=== PATIENT | male | born 1960 | race Two or more races ===

== ENCOUNTER → 2020-07-12 09:59 | Outpatient (BNVA) | payer MEDICAID, SELFPAY | PROVIDERS: PCP Student in an Organized Health Care Education/Training Program; Referring Provider Student in an Organized Health Care Education/Training Program; Visit Provider Nurse Practitioner | DX: Z76.89 Persons encountering health services in other specified circumstances (principal) ==

== ENCOUNTER 2021-01-24 10:01 | Outpatient (REF) | payer MEDICAID, SELFPAY ==
[2021-01-24 12:17] LABS: MANUAL DIFF FLAG NO
[2021-01-24 12:20] LABS: Basophils Percent Auto 0.5 % (0-2); Eosinophils Absolute Auto 0.1 X10*3/uL (0.0-0.4); Eosinophils Percent Auto 1.9 % (0-4); Hematocrit 46.4 % (42-52); Hemoglobin 15.3 g/dl (14.0-18.0); Imm Gran Abs Auto 0.01 X10*3/uL (0.00-0.03); Imm Gran Pct Auto 0.2 % (0.0-0.4); Lymphocytes Absolute Auto 2.9 X10*3/uL (1.2-4.9); Mean Corpuscular Hemoglobin 28.4 pg (27.0-33.0); Mean Corpuscular Volume 86.1 fL (80-98); Mean Platelet Volume 8.8 fL (9.4-12.4); Monocytes Absolute Auto 0.7 X10*3/uL (0.1-1.2); Monocytes Percent Auto 10.4 % (2-11); Neutrophils Absolute Auto 2.7 X10*3/uL (2.0-8.3); Platelet Count 207 X10*3/uL (160-400); Red Blood Count 5.39 X10*6/uL (4.60-5.80); Red Cell Distribution Width 13.2 % (11.0-16.0); White Blood Count 6.3 X10*3/uL (4.8-10.8)
[2021-01-24 12:41] LABS: Alanine Aminotransferase 25 U/L (0-40); Albumin Level 4.4 g/dL (3.5-5.0); Alkaline Phosphatase 107 U/L (39-117); Anion Gap 13 (12-20); Aspartate Amino Transferase 29 U/L (5-37); Bilirubin Total 0.4 mg/dL (0.0-1.0); Blood Urea Nitrogen 9 mg/dL (9-16); Calcium 9.4 mg/dL (8.4-10.2); Carbon Dioxide 28 mmol/L (22-29); Chloride 101 mmol/L (96-108); Estimated Glomerular Filt Rate > 60; Glucose Random 83 mg/dL (60-115); Potassium 3.6 mmol/L (3.3-5.1); Sodium 138 mmol/L (135-145); Total Protein 8.1 g/dL (6.5-8.0)
== END 2021-01-24 10:02 | disposition home or self-care (01) ==
LOC: HO.LAB 10:01
PROVIDERS: PCP Student in an Organized Health Care Education/Training Program; Referring Provider Student in an Organized Health Care Education/Training Program; Visit Provider Nurse Practitioner
DX: K59.04 Chronic idiopathic constipation (principal); K22.70 Barrett's esophagus without dysplasia; K21.9 Gastro-esophageal reflux disease without esophagitis; D12.6 Benign neoplasm of colon, unspecified; G40.909 Epilepsy, unspecified, not intractable, without status epilepticus; Z79.899 Other long term (current) drug therapy
CPT/HCPCS: 36415; 80053; 85025; 99212

== ENCOUNTER 2021-03-01 08:48 | Day surgery (SDC) | payer MEDICAID, SELFPAY ==
[2021-02-22 20:24] VITALS: BMI 38.4
--- NOTE | 2021-02-28 11:36 | P.CONAN_ITS ---
Documented by User: Carina Woo 02/28/21 11:38 HPI - Anesthesia Eval Consult details Narrative: 60yo M for Upper Endoscopy and Colonoscopy [facility] Active Problems Active Problems: All Active Problems (Updated 02/22/21 @ 20:26 by Mallory Gaytan, CRISTÓBAL) Chronic idiopathic constipation (Acute) Jose's esophagus determined by biopsy (Acute) GERD (gastroesophageal reflux disease) (Acute) Seizure disorder (Acute) Depression (Acute) Lower extremity edema (Acute) Tubular adenoma of colon (Acute) Past Medical History Medical History (Updated 02/28/21 @ 11:36 by Carina Woo) Arthritis Chronic idiopathic constipation Depression GERD (gastroesophageal reflux disease) Lower extremity edema Seizure disorder Family History Family History Mother Heart attack Surgical History Surgical History History of esophagogastroduodenoscopy (EGD) (~2016) History of intestinal surgery Hx of colonoscopy (~2016) Social History Social History Alcohol intake: current Alcohol intake frequency: does not drink Patient Tobacco Use Status: Never used Tobacco Use of substances other than those prescribed or required for medical reasons: No Are you DNR?: No Advance Directives: No Advance Directives Information Provided: No Advance Directives on File: No Meds Allergies Allergy/AdvReac Type Severity Reaction Status Date / Time No Known Allergies Allergy Verified 01/24/21 10:10 [No Known Allergies*] Home Medications Medication Instructions Recorded Confirmed Last Taken Type phenytoin sodium extended 1 cap PO TID 03/01/21 03/01/21 Unknown History [Dilantin Extended] Exam Exam Date and Time: February 28, 2021 1136 Height,Weight and Vital Signs: Height 5 ft 2 in Weight 95.254 kg Assessment and Plan Assessment Anesthesia Assessment: Chart Reviewed Documented by User: Tova Soni 03/01/21 10:10 [facility] Past Medical History Medical History (Updated 02/28/21 @ 11:36 by Carina Woo) Arthritis Chronic idiopathic constipation Depression GERD (gastroesophageal reflux disease) Lower extremity edema Seizure disorder Family History Family History Mother Heart attack Surgical History Surgical History History of esophagogastroduodenoscopy (EGD) (~2016) History of intestinal surgery Hx of colonoscopy (~2016) Social History Social History Alcohol intake: current Alcohol intake frequency: does not drink Patient Tobacco Use Status: Never used Tobacco Use of substances other than those prescribed or required for medical reasons: No Are you DNR?: No Advance Directives: No Advance Directives Information Provided: No Advance Directives on File: No Meds Allergies Allergy/AdvReac Type Severity Reaction Status Date / Time No Known Allergies Allergy Verified 01/24/21 10:10 [No Known Allergies*] Home Medications Medication Instructions Recorded Confirmed Last Taken Type phenytoin sodium extended 1 cap PO TID 03/01/21 03/01/21 Unknown History [Dilantin Extended] Exam Airway Mallampati Class: III TM Dist: >3cm Neck ROM: Full Heart: rrr Lungs: cta Assessment and Plan Assessment Anesthesia Assessment: Anesthesia Plan Discussed and Chart Reviewed Final Anesthetic Review NPO: Yes ASA Class: III Final Preanesthetic Review: No Changes in Pt Med Stat and Consent Obtained/Reviewed Patient Risk: Intermediate Procedure Risk: Intermediate Anesthetic Plan Anesthetic Plan: MAC: Disposition: Standard PACU
--- NOTE | 2021-03-01 10:04 | MHC.SHP ---
Pre-Procedural Eval Section A Date of Service: 03/01/21 Section B Chief Complaint: chronic constipation,benign neoplasm of colon Relevant Family History (Specify if Yes): No Relevant Social History: None Present Medications: see Short Stay Collaborative assessment Medical History: Significant History (Arthritis Chronic idiopathic constipation Depression GERD (gastroesophageal reflux disease) Lower extremity edema Seizure disorder) History of Previous Operations: Relevant previous surgery/procedure and date(s) (History of esophagogastroduodenoscopy (EGD) (~2016) History of intestinal surgery Hx of colonoscopy (~2016)) Allergies: Allergies Allergy/AdvReac Type Severity Reaction Status Date / Time No Known Allergies Allergy Verified 01/24/21 10:10 [No Known Allergies*] Review of Systems Sugical H&P ROS: Negative: Constitution, Cardiovascular, Respiratory, Neurological, Psychiatric, Hem-Onc, Allergic/Immunologic, Gastrointestinal, Genitourinary, Musculoskeletal, Integumentary, Endocrine and Eyes/Ears/Nose/Throat Exam Surgical H&P Exam: Normal: HEENT, Normal: Heart, Normal: Lungs, Normal: Extremities, Normal: Abdomen, Normal: Skin and Normal: Neurological Plan Diagnosis/Plan: Unchanged I have reviewed the history and physical and performed a pertinent physical examination on my patient. No changes have occurred unless specified.
[2021-03-01 10:06] VITALS: BP 133/79; PULSE 74; RESP 18; TEMP 36.2; O2SAT 95; BMI 40.6
[2021-03-01] MEDS: Lactated Ringers 1,000 ML 100 ML IVCONT (10:26)
--- NOTE | 2021-03-01 10:37 | P.OP_ITS ---
Operative Note Operative Note Date of Service: 03/01/21 Narrative: Operative Information Procedure Description: EGD, Colonoscopy FLEXIBLE TRANSORAL UPPER GASTROINTESTINAL ENDOSCOPY AND COLONOSCOPY PROCEDURE NOTE UPPER ENDOSCOPY Consent: Indications for the procedure and potential complications of bleeding, perforation, reaction to medications and missed diagnosis were discussed with the patient and informed consent was obtained. Instrument: Olympus GIF H 190 J mid size upper endoscope Monitoring: Vital signs and clinical assessment, continuous EKG monitoring, Pulse oximetry, Carbon Dioxide monitoring and blood pressure monitoring were done throughout the procedure. Procedure: The patient was placed in the left lateral decubitis position and pre-procedure medications were administered and a bite block was placed. The endoscope was inserted into the mouth and advanced under direct vision to the third part of duodenum. A careful inspection was made as the upper endoscope was withdrawn including a retroflexed examination of the proximal stomach; Findings and interventions are described below. Findings: Larynx:normal Esophagus: GE junction at 40 cm, diaphragm hiatus at 40 cm, mild esophagitis, possible one island of barretts esophagus, bx taken Stomach: Mild erythema. Biopsies were obtained. Grade 2 flap valve on retroflexed examination of the cardia. Duodenum: Normal bulb and descending duodenum, Intervention: Biopsies as noted above COLONOSCOPY Instrument: Olympus variable stiffness adult scope 190L Colonoscopy Monitoring: Vital signs and clinical assessment, continuous EKG monitoring, Pulse oximetry, Carbon Dioxide monitoring and blood pressure monitoring were done throughout the procedure. Colon withdrawal time was 26 minutes. Procedure: The patient was placed in the left lateral decubitis position and pre-procedure medications were administered. After a digital rectal examination of the ano-rectum, the video colonoscope was inserted into the rectum and advanced through the colon to the cecum/TI. The colonoscope was slowly withdrawn in a retrograde panoramic fashion and the colon mucosa was carefully examined including a retroflexed view of the rectum. Findings and interventions are described below. Procedure Difficulty:moderate, looping, pressure applied Findings: Terminal Ileum-not intubated Cecum:normal Ascending Colon: x 1 sessile polyp 6-8 mm removed with cold snare Transverse Colon -normal Descending Colon: x 1 sessile polyp 6-8 mm removed with cold snare Sigmoid Colon: x 2 sessile polyps 8-9 mm removed with cold snare Rectum: Retroflexion with small internal hemorrhoids, grade I Anorectum - normal Colon preparation: [place] Bowel Preparation Scale Right colon; 2 Transverse colon: 2 Left colon; 1 (0 = Unprepared colon segment with mucosa not seen due to solid stool that cannot be cleared. 1 = Portion of mucosa of the colon segment seen, but other areas of the colon segment not well seen due to staining, residual stool and/or opaque liquid. 2 = Minor amount of residual staining, small fragments of stool and/or opaque liquid, but mucosa of colon segment seen well. 3 = Entire mucosa of colon segment seen well with no residual staining, small fragments of stool or opaque liquid) Impression and Post Procedure Diagnosis: Endoscopy Findings: possible barretts esophagitis gastritis Colonoscopy Findings: polyps internal hemorrhoids Plan: Await Pathology results Repeat Colonoscopy in 3 years due to polyps and prep on legt side or earlier if clinically indicated High fiber diet leaflet avoid straining at stool, epsom salts and sitz bath, anusol supps or cream cont with PPI Above findings were reviewed with the patient and relevant handouts were provided if indicated.
--- NOTE | 2021-03-01 10:37 | PM.OP ---
Brief Operative Note Date of Service: 03/01/21 Pre-op diagnosis: hx of barretts, and tubular adenomas Post-op diagnosis: same Procedure: see op note Surgeon: Fabián Martin MD Anesthesia: MAC Was an Regulatory Process Manager used for this Procedure?: No Estimated blood loss (mL): 0 Condition: stable Disposition: PACU
[2021-03-01 11:54] VITALS: BP 106/60; PULSE 71; RESP 16; TEMP 36.7; O2SAT 97
[2021-03-01 12:09] VITALS: BP 105/69; PULSE 66; RESP 18; O2SAT 96
[2021-03-01 12:35] VITALS: BP 126/79; PULSE 67; RESP 20; O2SAT 99
[2021-03-01 12:47] VITALS: BP 136/64; PULSE 69; RESP 18; O2SAT 96
[2021-03-01 13:01] VITALS: BP 129/64; PULSE 68; RESP 16; O2SAT 96
== END 2021-03-01 14:08 | disposition home or self-care (01) ==
PROVIDERS: PCP Student in an Organized Health Care Education/Training Program; Visit Provider Internal Medicine Gastroenterology
PROC: (CPT 45385; principal; 2021-03-01 10:00)
DX: K59.04 Chronic idiopathic constipation (principal); Z86.010 Personal history of colon polyps; D12.2 Benign neoplasm of ascending colon; D12.4 Benign neoplasm of descending colon; K63.5 Polyp of colon; K64.0 First degree hemorrhoids; K29.50 Unspecified chronic gastritis without bleeding; K20.90 Esophagitis, unspecified without bleeding; K44.9 Diaphragmatic hernia without obstruction or gangrene; G40.909 Epilepsy, unspecified, not intractable, without status epilepticus; Z79.899 Other long term (current) drug therapy
CPT/HCPCS: 45385; 43239; 88305; 88342

== ENCOUNTER → 2021-03-23 10:10 | Outpatient (BNVA) | payer MEDICAID, SELFPAY | PROVIDERS: PCP Student in an Organized Health Care Education/Training Program; Visit Provider Nurse Practitioner | DX: K21.9 Gastro-esophageal reflux disease without esophagitis (principal); K59.04 Chronic idiopathic constipation; K22.70 Barrett's esophagus without dysplasia; D12.6 Benign neoplasm of colon, unspecified | CPT/HCPCS: 99212 ==

== ENCOUNTER → 2021-04-07 14:01 | Outpatient (BNVA) | payer MEDICAID, SELFPAY | PROVIDERS: PCP Student in an Organized Health Care Education/Training Program; Visit Provider Nurse Practitioner ==

== ENCOUNTER → 2021-05-26 15:35 | Outpatient (BNVA) | payer MEDICAID, SELFPAY | PROVIDERS: PCP Student in an Organized Health Care Education/Training Program; Visit Provider Nurse Practitioner ==

== ENCOUNTER 2021-10-02 10:58 | Outpatient (REF) | payer MEDICAID, SELFPAY ==
--- NOTE | ~2021-10-02 | XR_ITS ---
EXAMINATION: XR KNEE, RIGHT CLINICAL INFORMATION: Pain COMPARISON: None TECHNIQUE: Two views of the right knee. FINDINGS: Bone alignment is normal. No fracture or dislocation is seen. The joint spaces are normal. There is a small osteophyte at the quadriceps tendon insertion to the patella. There is no joint effusion. There is atherosclerotic disease. XR/XR knee RT 2V IMPRESSION: Small osteophyte at the quadriceps tendon insertion to the patella otherwise unremarkable exam.
== END 2021-10-02 10:59 | disposition home or self-care (01) ==
LOC: HO.XRAY 10:58
PROVIDERS: PCP Student in an Organized Health Care Education/Training Program; Visit Provider Student in an Organized Health Care Education/Training Program
DX: M25.561 Pain in right knee (principal)
CPT/HCPCS: 73560

== ENCOUNTER → 2021-12-26 11:13 | Outpatient (BNVA) | payer MEDICAID, SELFPAY | PROVIDERS: PCP Student in an Organized Health Care Education/Training Program; Visit Provider Nurse Practitioner | DX: K22.70 Barrett's esophagus without dysplasia (principal); K59.04 Chronic idiopathic constipation; K21.9 Gastro-esophageal reflux disease without esophagitis; R14.0 Abdominal distension (gaseous) | CPT/HCPCS: 99212 ==

== ENCOUNTER → 2022-06-29 10:56 | Outpatient (BNVA) | payer MEDICAID, SELFPAY | PROVIDERS: PCP Student in an Organized Health Care Education/Training Program; Visit Provider Nurse Practitioner | DX: K59.04 Chronic idiopathic constipation (principal); K21.9 Gastro-esophageal reflux disease without esophagitis; K22.70 Barrett's esophagus without dysplasia; R14.0 Abdominal distension (gaseous) | CPT/HCPCS: 99212 ==

== ENCOUNTER → 2022-09-25 10:41 | Outpatient (BNVA) | payer MEDICAID, SELFPAY | PROVIDERS: PCP Student in an Organized Health Care Education/Training Program; Visit Provider Psychiatry & Neurology Neurology | DX: G40.909 Epilepsy, unspecified, not intractable, without status epilepticus (principal); G47.10 Hypersomnia, unspecified; R26.9 Unspecified abnormalities of gait and mobility; R06.83 Snoring | CPT/HCPCS: 99202 ==

== ENCOUNTER → 2022-10-12 10:37 | Outpatient (REF) | payer MEDICAID, SELFPAY | LOC: HO.SL 10:37 | PROVIDERS: PCP Student in an Organized Health Care Education/Training Program; Visit Provider Psychiatry & Neurology Neurology | DX: G47.33 Obstructive sleep apnea (adult) (pediatric) (principal) | CPT/HCPCS: 95806 ==

== ENCOUNTER 2022-11-14 12:47 | Outpatient (REF) | payer MEDICAID, SELFPAY ==
--- NOTE | ~2022-11-14 | US_ITS ---
. US/US venous duplex LE LT IMPRESSION: No DVT demonstrated in the right lower extremity.
== END 2022-11-14 12:48 | disposition home or self-care (01) ==
LOC: HO.US 12:47
PROVIDERS: PCP Student in an Organized Health Care Education/Training Program; Visit Provider General Practice
DX: M79.662 Pain in left lower leg (principal)
CPT/HCPCS: 93971

== ENCOUNTER 2022-11-16 14:51 | Emergency (ER) | payer MEDICAID, SELFPAY ==
--- NOTE | ~2022-11-16 | XR_ITS ---
EXAMINATION: XR KNEE, LEFT CLINICAL INFORMATION: Pain. COMPARISON: No similar priors. TECHNIQUE: Four views of the left knee. FINDINGS: No acute fractures or subluxation. Mild joint space narrowing and subcortical sclerosis of the medial and patellofemoral compartments. No chondrocalcinosis or erosions. Small joint effusion. XR/XR knee LT 3V IMPRESSION: 1. No acute fractures or subluxation. 2. Mild degenerative osteoarthritis of the medial and patellofemoral compartments. 3. Small joint effusion.
--- NOTE | ~2022-11-16 | XR_ITS ---
EXAMINATION: XR HIP, LEFT CLINICAL INFORMATION: Pain. COMPARISON: None available. TECHNIQUE: Two views of the left hip. FINDINGS: No acute fractures or subluxation. SI joints are symmetric. Pubic symphysis is maintained. Mild to moderate joint space narrowing and subcortical sclerosis in both hips, suggesting degenerative osteoarthritis. No significant soft tissue abnormality. Scattered atherosclerotic disease noted. XR/XR hip LT min 2V IMPRESSION: 1. No acute fractures or subluxation. 2. Mild to moderate degenerative osteoarthritis of both hips.
[2022-11-16 15:00] VITALS: BP 148/88; PULSE 77; O2SAT 98
[2022-11-16 15:01] VITALS: BP 144/98; PULSE 98; RESP 18; TEMP 36.7; O2SAT 98; BMI 27.3
[2022-11-16] MEDS: Morphine Sulfate 4 MG/ML CARTRIDGE IM (17:06)
--- NOTE | 2022-11-16 17:12 | ED.GENADULT ---
HPI - General Adult General Chief complaint: Extremity Injury, Lower Stated complaint: L leg pain x 1 week per EMS Time Seen by Provider: 11/16/22 16:38 Source: patient, family (Patient's brother acting as lot associate), RN notes reviewed and old records reviewed Mode of arrival: EMS Limitations: language barrier (Declined interpreting services) History of Present Illness HPI narrative: 62-year-old male past medical history significant for seizure disorder, MATEO on CPAP, neuropathy, GERD presents for evaluation of left leg pain. Patient reports left pain that starts in his left hip and radiates down all way to his foot he The pain is 10/10, stabbing and worse with any kind of movement. The patient reports his pain has been present for 1 week He has not taken any medications to help alleviate his symptoms. Denies any injuries, falls or twisting motions. He spoke to his primary doctor who has not yet seen the patient but did order an ultrasound of the left lower extremity 2 days ago which did not show any evidence of DVT Related Data Home Medications Medication Instructions Recorded Confirmed phenytoin sodium extended 100 mg 1 cap PO TID 03/01/21 09/25/22 capsule (Dilantin Extended) aripiprazole 10 mg tablet 10 mg PO DAILY 12/26/21 09/25/22 cyanocobalamin (vitamin B-12) 1,000 mcg PO QAM 12/26/21 09/25/22 1,000 mcg tablet (Vitamin B-12) duloxetine 30 mg capsule,delayed 60 mg PO QAM 12/26/21 09/25/22 release ergocalciferol (vitamin D2) 1,250 1,250 mcg PO QWEEK 12/26/21 09/25/22 mcg (50,000 unit) capsule (Vitamin D2) esomeprazole magnesium 20 mg 20 mg PO QAM 12/26/21 09/25/22 capsule,delayed release folic acid 400 mcg tablet 0.4 mg PO QPM 12/26/21 09/25/22 furosemide 20 mg tablet 20 mg PO BID 12/26/21 09/25/22 simvastatin 10 mg tablet 10 mg PO BEDTIME 12/26/21 09/25/22 trazodone 100 mg tablet 200 mg PO BEDTIME PRN 12/26/21 09/25/22 Previous Rx's Medication Instructions Recorded pantoprazole 40 mg tablet,delayed 40 mg PO BID #60 tabs 02/22/21 release (Protonix) simethicone 180 mg capsule 180 mg PO TID #90 caps 06/22/22 phenobarbital 64.8 mg tablet 64.8 mg PO TID 90 days #270 tabs 09/25/22 phenytoin sodium extended 100 mg 100 mg PO TID 90 days #270 caps 09/25/22 capsule (Dilantin Extended) bisacodyl 5 mg tablet,delayed 10 mg PO BEDTIME PRN for 10/12/22 release constipation #60 tabs docusate sodium 100 mg capsule 100 mg PO .QD #60 caps 10/12/22 (Colace) linaclotide 72 mcg capsule 72 mcg PO QAM #30 caps 10/12/22 (Linzess) oxycodone 5 mg tablet 5 mg PO Q6H PRN severe pain (scale 11/16/22 score 7-10) #14 tabs Allergies Allergy/AdvReac Type Severity Reaction Status Date / Time No Known Allergies Allergy Verified 09/25/22 10:51 [No Known Allergies*] Review of Systems Constitutional: Constitutional: Reports as per HPI, Denies chills, Denies fatigue, Denies fever(s) and Denies headache(s) ENT: Denies headache(s) Cardiovascular: Cardiovascular: Denies chest pain and Denies dyspnea Respiratory: Respiratory: Denies cough and Denies dyspnea Gastrointestinal: Gastrointestinal: Denies abdominal pain, Denies constipation and Denies vomiting Genitourinary: Genitourinary: Denies difficulty urinating and Denies dysuria Neurologic: Denies headache(s) and Denies focal weakness Endocrine: Endocrine: Denies fatigue [facility] Past Medical History Medical History (Updated 11/16/22 @ 19:24 by Nicola Bradshaw) Arthritis Chronic idiopathic constipation Depression Gait disorder GERD (gastroesophageal reflux disease) Hypersomnia Lower extremity edema MATEO on CPAP Seizure disorder Snoring Surgical History History of esophagogastroduodenoscopy (EGD) (~2017) History of intestinal surgery Hx of colonoscopy (~2017) Family History Family History Mother Heart attack Social History Social History Alcohol intake: never Patient Tobacco Use Status: Never used Tobacco Advance Directives: No Advance Directives Information Provided: Yes Physical Exam ED Vital Signs: Vital Signs - 24 hr 11/16/22 15:01 11/16/22 18:54 Temperature 98.1 F 98.0 F Pulse Rate 98 87 Respiratory Rate 18 14 Blood Pressure 144/98 H 134/79 Pulse Oximetry 98 97 Oxygen Delivery Method Room Air Room Air BMI result Body Mass Index 27.3 Const General: healthy appearing, comfortable, no acute distress, alert and awake Nutritional Appearance: well nourished Orientation/consciousness: patient oriented x3 HENMT Head: Yes normocephalic and Yes atraumatic Throat: Yes posterior oropharynx normal Eyes Eyelids: Yes eyelids normal Conjunctivae: conjunctivae normal Sclerae: sclerae normal Corneas: corneas normal Pupils: Equal, round and reactive pupils present EOM: EOMs intact bilaterally Neck Neck: Yes full ROM Resp Effort & Inspection: normal respiratory effort, able to speak in complete sentences, no audible wheezes and not labored Auscultation: clear to auscultation bilaterally Cardio Rate: regular rate Rhythm: regular rhythm GI Inspection: No distended Palpation (GI): Soft to palpation, not firm, nontender, no guarding and not rigid Auscultation: normoactive bowel sounds Skin General skin exam: no rashes or lesions noted and elasticity normal Neuro General: patient oriented x3 Cranial nerves: Yes CN's II-XII intact bilaterally, Yes Equal, round and reactive pupils present and Yes Bilaterally intact EOM present Cognition (Neuro): normal cognition Extrem Other: Patient has tenderness to palpation to most to the left lower extremity including the hip, knee and calf. There are no visual or palpable deformities. No edema, skin changes. No palpable cords. Patient has a straight leg raise is positive on the left. Course Reevaluation(s) Reevaluation #1: Patient continues to have pain but is requesting discharge. Discussed x-ray findings with the patient he has arthritis of both hips and the left knee. We will discharge the patient short course of oxycodone Time: 19:23 Medications Administered Discontinued Medications Generic Name Dose Route Start Last Admin Trade Name Freq PRN Reason Stop Dose Admin Morphine Sulfate 4 mg 11/16/22 16:45 11/16/22 17:06 Morphine Sulfate 4 Mg/Ml Cartridge IM 11/16/22 16:46 4 mg ONCE ONE Administration Protocol Medical Decision Making Medical Decision Making MDM Narrative: 62-year-old male past medical history significant for neuropathy and history of left or extremity pain presents for evaluation of left leg pain. He had an ultrasound 2 days ago of the left lower extremity that ruled out DVT. I was able to see the report within our system. I will get an x-ray of the left hip and left knee to evaluate for osteoarthritis/avascular necrosis. Will treat the patient's pain with morphine in the meantime. Differential Diagnosis Left hip bursitis Osteoarthritis Avascular necrosis DVT less likely Radiculopathy Sciatica Independent Interpretation I performed an independent interpretation of an: Plain X-Ray (Arthritis the left hip and left knee) Discharge Plan Discharge Clinical Impression: Osteoarthritis of left hip Patient Disposition: Home, Self-Care Instructions: Osteoarthritis (ED) Additional Instructions: Your x-ray showed arthritis of both hips as well as her left knee. You may continue your home medications as prescribed. Take oxycodone for severe or breakthrough pain. This may make you sleepy, did not drink alcohol or drive after taking it Follow-up with your primary doctor Prescriptions: New oxycodone 5 mg tablet 5 mg PO Q6H PRN (Reason: severe pain (scale score 7-10)) Qty: 14 0RF Rx Instructions: Partial Fill upon patient request. No Action pantoprazole [Protonix] 40 mg tablet,delayed release (DR/EC) 40 mg PO BID Qty: 60 6RF simethicone 180 mg capsule 180 mg PO TID Qty: 90 6RF Linzess 72 mcg capsule 72 mcg PO QAM Qty: 30 4RF bisacodyl 5 mg tablet,delayed release (DR/EC) 10 mg PO BEDTIME PRN (Reason: for constipation) Qty: 60 2RF docusate sodium [Colace] 100 mg capsule 100 mg PO .QD Qty: 60 6RF phenytoin sodium extended [Dilantin Extended] 100 mg capsule 1 cap PO TID aripiprazole 10 mg tablet 10 mg PO DAILY duloxetine 30 mg capsule,delayed release(DR/EC) 60 mg PO QAM esomeprazole magnesium 20 mg capsule,delayed release(DR/EC) 20 mg PO QAM ergocalciferol (vitamin D2) [Vitamin D2] 1,250 mcg (50,000 unit) capsule 1,250 mcg PO QWEEK furosemide 20 mg tablet 20 mg PO BID trazodone 100 mg tablet 200 mg PO BEDTIME PRN folic acid 400 mcg tablet 0.4 mg PO QPM cyanocobalamin (vitamin B-12) [Vitamin B-12] 1,000 mcg tablet 1,000 mcg PO QAM simvastatin 10 mg tablet 10 mg PO BEDTIME phenytoin sodium extended [Dilantin Extended] 100 mg capsule 100 mg PO TID 90 Days Qty: 270 6RF phenobarbital 64.8 mg tablet 64.8 mg PO TID 90 Days Qty: 270 5RF
[2022-11-16 18:54] VITALS: BP 134/79; PULSE 87; RESP 14; TEMP 36.7; O2SAT 97
== END 2022-11-16 19:48 | disposition home or self-care (01) ==
PROVIDERS: Emergency Provider Emergency Medicine; PCP Student in an Organized Health Care Education/Training Program
DX: M16.12 Unilateral primary osteoarthritis, left hip (principal); M25.552 Pain in left hip; M25.562 Pain in left knee
CPT/HCPCS: 73502; 73562; 96372; 99284; J2270

== ENCOUNTER → 2022-12-24 08:51 | Outpatient (BNVA) | payer MEDICAID, SELFPAY | PROVIDERS: PCP Student in an Organized Health Care Education/Training Program; Visit Provider Nurse Practitioner Family | DX: G40.909 Epilepsy, unspecified, not intractable, without status epilepticus (principal); R26.9 Unspecified abnormalities of gait and mobility; G47.33 Obstructive sleep apnea (adult) (pediatric); Z99.89 Dependence on other enabling machines and devices | CPT/HCPCS: 99212 ==

== ENCOUNTER → 2022-12-28 10:44 | Outpatient (BNVA) | payer MEDICAID, SELFPAY | PROVIDERS: PCP Student in an Organized Health Care Education/Training Program; Visit Provider Nurse Practitioner | DX: K21.9 Gastro-esophageal reflux disease without esophagitis (principal); R14.0 Abdominal distension (gaseous); K59.04 Chronic idiopathic constipation; K22.70 Barrett's esophagus without dysplasia | CPT/HCPCS: 99212 ==

== ENCOUNTER 2023-02-06 11:00 | Outpatient (RCR) | payer MEDICAID, SELFPAY ==
--- NOTE | 2023-01-09 12:55 | MHC.PT.EP ---
[facility] [place] [facility] [place] [facility] [place] [facility] [address] Ksenia Rose [address] [phone] F: [phone] F: [phone] F: [phone] F: [phone] Physical Therapy Plan of Care Date of Evaluation: Date of Surgery: Diagnosis: gait disorder Assessment: Patient is a 62 year old R handed male who presents with s/s consistent with gait disorder. He is disabled with chronic progressing pain and functional limitations. Patient past medical history includes seizures, MATEO, gait disorder, and arthritis. Current impairments include pain, posture, balance, safety, independence, ROM, strength, activity tolerance and functional mobility. Functional limitations include decreased ability to perform all functional activities, as LANDSCAPE SPECIALIST reportedly assists with all mobility during the day. Patient is motivated with good rehab potential. Skilled PT will address impairments and functional limitations in order to achieve goals. Frequency and Duration: The patient will be seen 2x/week for 5 weeks Short Term Goals: I with HEP - 2 weeks Able to stand unsupported 1 min - 3 weeks Able to walk with walker for 5 minutes without rest - 3 weeks Shelter Goals: hip strength 4/5 grossly b/l - 5 weeks LEFS 20/80 - 5 weeks Lumbar rotation 50% and pain free - 5 weeks Able to stand unsupported 3 minutes without rest - 5 weeks Treatment Plan: Modalities to reduce pain, spasms and effusion. Manual therapy to restore motion and function. Therapeutic exercise to improve strength and flexibility. Neuromuscular re-education for posture and balance. Therapeutic activities to return to functional activities of daily living. Electronically signed by: Moreno Vazquez, PT Please sign and return to therapist. Thank you for your referral.
--- NOTE | 2023-02-20 15:01 | MHC.PT.DC ---
[facility] [place] Office [place] Office [place] Office [address] Ksenia Rose [address] [phone] F: [phone] F: [phone] F: [phone] F: [phone] Physical Therapy Discharge Report Diagnosis: gait disorder Date of Surgery: Date of Evaluation: 01/09/23 Date of Discharge: 02/20/23 Treatments to Date: 5 Cancellations to Date: 2 No Shows to Date: 2 Discharge Status: Visit Non-compliance Discharge Summary: Pt has failed to comply with [facility] attendance policy and no showed his last 2 visits. Pt to be d/c at this time. Electronically signed by: Carol Balbuena, PT, DPT, ATC Please sign and return to therapist. Thank you for your referral.
== END 2023-02-20 15:01 | disposition home or self-care (01) ==
LOC: HO.PTCHIC 11:00
PROVIDERS: PCP Student in an Organized Health Care Education/Training Program; Visit Provider Psychiatry & Neurology Neurology
DX: R26.9 Unspecified abnormalities of gait and mobility (principal)
CPT/HCPCS: 97110; 97163

== ENCOUNTER 2023-02-18 09:01 | Outpatient (AMB) | payer MEDICAID, SELFPAY ==
--- NOTE | 2023-02-18 09:11 | MHC.OFFVIS ---
Intake Vital Signs 02/18/23 10:22 Height 5 ft 8 in Weight 224 lb BMI 34.1 BP 132/78 Blood Pressure Location Lt brachial Position Sitting Respiration 16 Pulse 68 Pulse Source Pulse Oximeter Pulse Oximetry (%) 96 Oxygen Delivery Method Room Air Intake Visit Reasons: Bilateral hip pain Intake Note: patient comes in for initial visit was referred by PCP. Allergies No Known Allergies [No Known Allergies*] Allergy (Verified 02/18/23 10:24) HPI Bilateral hip pain HPI Details Mr. Rae is very pleasant 62 years old gentleman HPI Comments History of Present Illness Details Mr. Rae is very pleasant [place] Citizen-speaking 62 years old gentleman who presents in my office with complains on pain in the lumbar spine with radiation into the bilateral lower extremities, as well as numbness in bilateral feet and lower legs more on the left and less on the right. She reports that this pain started 3-4 years ago. He reports today pain 8/10. Because of his pain he cannot sleep normally cannot do activities of daily living can not take care of his himself but he cannot function normally. He is disabled on permanent disability and he is presenting he is self today with his [place] Citizen and [place]-speaking caregiver who is fluent in both languages. She helped us to communicate. He reports that cold applications make his cane pain better. He reports that he is unable to walk normally because of the gait instability. In terms of tissue damage he reports his pain is stabbing, lancinating, tiring, exhausting, tight, squeezing, tearing. He was under impression that he received x-ray of his lumbar spine in [facility] however the only x-ray related to his emergency visit was hip x-ray. In [facility] he did not receive any lumbar spine x-rays. He reports that he is currently with physical therapy and he performs home exercise programs 3 times a day he denies any help from physical therapy. He is taking Advil for his pain and he denies any pain improvement on Advil. His past medical history significant for hypertension and epilepsy there is a note in his chart about some ?lytic lesion ?. It means that he had a cancer in the past? I would need to find out from this patient at the next visit. He denies any surgery. He denies smoking cigarettes drinking alcohol or using recreational drugs. [facility] Medical History Arthritis Chronic idiopathic constipation Depression Gait disorder GERD (gastroesophageal reflux disease) Hypersomnia Lower extremity edema MATEO on CPAP Seizure disorder Snoring Surgical History History of esophagogastroduodenoscopy (EGD) (~2017) History of intestinal surgery Hx of colonoscopy (~2017) Family History Mother Heart attack Social History Alcohol intake: never Patient Tobacco Use Status: Never used Tobacco Review of Systems Const All systems reviewed & are unremarkable except as noted in HPI and below Reports no additional complaints Card Reports no additional complaints Resp Reports no additional complaints GI Reports abdominal pain, Reports constipation and Reports heartburn Reports no additional complaints Musc Reports as per HPI Neuro Reports as per HPI Psych Reports as per HPI Physical Exam Vital Signs: Last Vital Signs Pulse 68 02/18/23 10:22 Resp 16 02/18/23 10:22 BP 132/78 02/18/23 10:22 Pulse Ox 96 02/18/23 10:22 Oxygen Delivery Method Room Air 02/18/23 10:22 BMI result Body Mass Index 34.1 Const General: well developed and tired appearing; No acute distress Nutritional Appearance: overweight Orientation/consciousness: patient oriented x3 Chest Chest palpation & inspection: normal inspection of the chest Resp Effort & Inspection: normal respiratory effort, able to speak in complete sentences, normal respiratory pattern, no audible wheezes, no cough, respiratory effort not decreased, no grunting, not labored and no nasal flaring Cardio Jugular venous distension: no JVD GI Inspection: Yes normal to inspection Back/Spine/Pelvis Other: Unable to stand without support on bilateral feet. Use walker for ambulation. 2 point discrimination is negative on the left foot. Reports numbness is spreading to the mid of the lower leg. Bilateral Achillis and bilateral patellar reflexes are absent. Unable to dorsiflex at all his left foot, very weak dorsiflexion of the right foot. Unable to dorsiflex bilaterally great toe. SLR is positive for pain increase bilaterally. Forceful dorsiflexion of the bilateral feet results in significant pain increase in the back with radiation into bilateral lower extremities. Loading test is positive bilaterally. Valsalva maneuver is equivocal. Could be positive hard to explain to the patient. Neuro General: patient oriented x3 Psych Appearance: grossly normal Mental Status: mental status grossly normal Speech and movement: Normal speech and movement present Affect: normal affect Attitude: cooperative Thought process: Normal thought process present Thought content: Normal thought content present Insight: Good insight present (Psych) Assessment & Plan Assessment & Plan (1) Spondylosis of lumbar joint: Code(s): M47.816 - Spondylosis without myelopathy or radiculopathy, lumbar region (2) Disc degeneration, lumbar: Code(s): M51.36 - Other intervertebral disc degeneration, lumbar region (3) Radiculopathy, lumbar region: Code(s): M54.16 - Radiculopathy, lumbar region (4) Chronic pain syndrome: Code(s): G89.4 - Chronic pain syndrome Plan Of this patient exhibits signs of significant nerve root compressions on the bilateral lower extremities right more than left. Most likely radiculopathy on the right but cannot exclude left. Weakness of bilateral lower extremities as well as numbness of bilateral lower extremities objectively presenting as well as absence of the bilateral reflexes L4 and S1 demonstrate radiculopathy. I will send him for the MRI as soon as possible. After MRI is ready I would need to schedule him for follow-up appointment and discuss options for the treatment of his condition. He might require surgery. In his charge there is mentioning of ?lythic lesion ?. Next time he is here I would need to us him if he ever had any history of cancer. Orders: Orders MR lumbar spine wo con Today G89.4 - Chronic pain syndrome, M47.816 - Spondylosis without myelopathy or radiculopathy, lumbar region, M51.36 - Other intervertebral disc degeneration, lumbar region, M54.16 - Radiculopathy, lumbar region Coding Level of Care Code New Pt Level 4 (70120) Diagnoses Spondylosis of lumbar joint M47.816 Disc degeneration, lumbar M51.36 Radiculopathy, lumbar region M54.16 Chronic pain syndrome G89.4
[2023-02-18 10:22] VITALS: BP 132/78; PULSE 68; RESP 16; O2SAT 96; BMI 34.1
== END 2023-02-18 10:14 | disposition home or self-care (01) ==
PROVIDERS: PCP Student in an Organized Health Care Education/Training Program; Visit Provider Anesthesiology
DX: G89.4 Chronic pain syndrome (principal); M47.816 Spondylosis without myelopathy or radiculopathy, lumbar region; M51.36 Other intervertebral disc degeneration, lumbar region; M54.16 Radiculopathy, lumbar region
CPT/HCPCS: 99204

== ENCOUNTER → 2023-02-18 09:01 | Outpatient (BNVA) | payer MEDICAID, SELFPAY | PROVIDERS: PCP Student in an Organized Health Care Education/Training Program; Visit Provider Anesthesiology | DX: M47.816 Spondylosis without myelopathy or radiculopathy, lumbar region (principal); M51.36 Other intervertebral disc degeneration, lumbar region; M54.16 Radiculopathy, lumbar region; G89.4 Chronic pain syndrome | CPT/HCPCS: 99202 ==

== ENCOUNTER 2023-04-22 10:43 | Outpatient (REF) | payer MEDICAID, SELFPAY ==
[2023-04-22 15:07] LABS: Alanine Aminotransferase 31 U/L (0-40); Albumin Level 4.3 g/dL (3.5-5.0); Alkaline Phosphatase 108 U/L (39-117); Anion Gap 12 (12-20); Aspartate Amino Transferase 24 U/L (5-37); Bilirubin Direct 0.1 mg/dL (0.0-0.5); Bilirubin Total 0.3 mg/dL (0.0-1.0); Blood Urea Nitrogen 8 mg/dL (9-16); Calcium 9.2 mg/dL (8.4-10.2); Carbon Dioxide 28 mmol/L (22-29); Chloride 105 mmol/L (96-108); Cholesterol 163 mg/dL (<200); Estimated Glomerular Filt Rate > 60; Glucose Fasting 86 mg/dL (60-99); HDL Cholesterol 53 mg/dL (>40); LDL Cholesterol Calculated 82 mg/dL (<100); Potassium 3.7 mmol/L (3.3-5.1); Sodium 141 mmol/L (135-145); Total Protein 7.7 g/dL (6.5-8.0); Triglycerides 140 mg/dL (<150)
== END 2023-04-22 10:44 | disposition home or self-care (01) ==
LOC: HO.CHCLDS 10:43
PROVIDERS: Visit Provider Student in an Organized Health Care Education/Training Program
DX: G40.909 Epilepsy, unspecified, not intractable, without status epilepticus (principal)
CPT/HCPCS: 36415; 80048; 80061; 80076

== ENCOUNTER 2023-04-25 09:58 | Outpatient (REF) | payer MEDICAID, SELFPAY ==
--- NOTE | ~2023-04-25 | MR_ITS ---
EXAMINATION: MR LUMBAR SPINE WITHOUT CONTRAST CLINICAL INFORMATION: Spondylosis without myelopathy or radiculopathy. COMPARISON: CT scan of the abdomen and pelvis 10/07/2017. TECHNIQUE: MRI of the lumbar spine was obtained using routine sequences without contrast. FINDINGS: VERTEBRAL BODIES AND PARASPINAL STRUCTURES: There is a 4 mm grade 1 anterolisthesis of L5 on S1 secondary to bilateral L5 partes interarticulares defects. There is a minimal retrolisthesis of L4 on L5. There is mild reversal of the lumbar lordosis at L1-L2. There is mild loss of vertebral body height of L1 inferiorly, stable, consistent with chronic changes. There is multilevel narrowing of intervertebral disc height, most severe at L1-L2 and L5-S1. There are Schmorl's nodes at adjacent endplates at L1-L2. Vertebral body heights are maintained, and no fractures are demonstrated. Overall, marrow signal is slightly heterogenous. The study redemonstrates an extrarenal pelvis on the right. The visualized pelvic structures are unremarkable. CONUS MEDULLARIS AND CAUDA EQUINA: Normal, terminating at the level of T12-L1. The lower thoracic spinal cord appears normal. The cauda equina nerve roots and filum terminale appear normal. SPINAL LEVELS: L1-L2: The facet joints appear normal. There is a shallow posterior disc protrusion without significant mass effect on the thecal sac and there is no central stenosis. The neural foramina are patent bilaterally. L2-L3: There is mild to moderate bilateral facet arthropathy with ligamenta flava hypertrophy and facet joint effusions. There is a shallow posterior disc protrusion which is more prominent on the right with mild narrowing of the right subarticular recess. There is no central stenosis. The neural foramina are patent bilaterally. L3-L4: There is mild to moderate bilateral facet arthropathy with ligamenta flava hypertrophy and facet joint effusions. Posterior disc contour is normal in is no central stenosis. The neural foramina are patent bilaterally. L4-L5: There is moderate bilateral facet arthropathy with ligamenta flava hypertrophy and facet joint effusions. There is a broad-based posterior disc protrusion extending into the neural foramina bilaterally, more prominently on the right and there is impingement on the exiting L4 nerve roots bilaterally. There is no central stenosis. L5-S1: There is moderate bilateral facet arthropathy. There are bilateral L5 partes interarticulares defects. There is unroofing of the disc as a result of the anterolisthesis. There are bilateral foraminal disc protrusions, more prominent on the left. The protrusion extends far laterally with impingement on the exiting and extraforaminal segments of the bilateral L5 nerve roots. There is no central stenosis. MR/MR lumbar spine wo con IMPRESSION: 1. There is a grade 1 anterolisthesis of L5 on S1 secondary to bilateral L5 partes interarticulares defects. There are bilateral foraminal disc protrusions, more prominent on the left with impingement on the exiting and extraforaminal segments of the bilateral L5 nerve roots. There is no central stenosis. 2. At L4-L5 there is facet arthropathy and there is a broad-based posterior disc protrusion extending into the neural foramina with impingement on the exiting L4 nerve roots bilaterally. There is no central stenosis. 3. Milder spondylitic and facet arthropathic changes are demonstrated at other levels as described above.
== END 2023-04-25 09:59 | disposition home or self-care (01) ==
LOC: HO.MRI 09:58
PROVIDERS: PCP Student in an Organized Health Care Education/Training Program; Visit Provider Anesthesiology
DX: M47.816 Spondylosis without myelopathy or radiculopathy, lumbar region (principal); M51.36 Other intervertebral disc degeneration, lumbar region; M54.16 Radiculopathy, lumbar region; G89.4 Chronic pain syndrome
CPT/HCPCS: 72148

== ENCOUNTER 2023-05-06 09:42 | Outpatient (AMB) | payer MEDICAID, SELFPAY ==
[2023-05-06 10:14] VITALS: BP 132/76; PULSE 68; RESP 16; O2SAT 95; BMI 34.2
--- NOTE | 2023-05-06 10:14 | MHC.OFFVIS ---
Intake Vital Signs 05/06/23 10:14 Height 5 ft 8 in Weight 225 lb BMI 34.2 BP 132/76 Blood Pressure Location Lt brachial Position Sitting Respiration 16 Pulse 68 Pulse Source Pulse Oximeter Pulse Oximetry (%) 95 Oxygen Delivery Method Room Air Intake Visit Reasons: MRI results Intake Note: Patient comes in to discuss MRI results. Allergies No Known Allergies [No Known Allergies*] Allergy (Verified 05/06/23 10:14) HPI HPI Comments History of Present Illness Details Mr. Rae is back in my office after MRI was performed on his lower back. Dictation of MRI is as below. The patient has multiple changes on MRI especially 4 mm spondylolisthesis L5-S1 as well as L4-5 and L5-S1 bilateral disc protrusions with nerve root compressions. I think he will be a good candidate for neurosurgical consult. I will refer him to , I told him if patient is not very eager to go to surgery we can take him back and try to do some epidural steroid injections. I told him also we can try epidural steroid injections with his understanding about side effects of the epidural steroids including yatrogenic diabetes and osteoporosis. He completed physical therapy and he reports not much of the pain improvement. He tried NSAIDs to help his pain with minimal or no result. He reported that he wants to go for neurosurgical consult. He reported that previously he had some lytic lesion in his shoulder but it was found to be noncancerous. Prior: Pashto-speaking 62 years old gentleman who presents in my office with complains on pain in the lumbar spine with radiation into the bilateral lower extremities, as well as numbness in bilateral feet and lower legs more on the left and less on the right. She reports that this pain started 3-4 years ago. He reports today pain 8/10. Because of his pain he cannot sleep normally cannot do activities of daily living can not take care of his himself but he cannot function normally. he is currently with physical therapy and he performs home exercise programs 3 times a day he denies any help from physical therapy. He is taking Advil for his pain and he denies any pain improvement on Advil. His past medical history significant for hypertension and epilepsy there is a note in his chart about some ?lytic lesion ?. It means that he had a cancer in the past? I would need to find out from this patient at the next visit. He denies any surgery. He denies smoking cigarettes drinking alcohol or using recreational drugs. [facility] Medical History Arthritis Chronic idiopathic constipation Depression Gait disorder GERD (gastroesophageal reflux disease) Hypersomnia Lower extremity edema MATEO on CPAP Seizure disorder Snoring Surgical History History of esophagogastroduodenoscopy (EGD) (~2017) History of intestinal surgery Hx of colonoscopy (~2017) Family History Mother Heart attack Social History Alcohol intake: never Patient Tobacco Use Status: Never used Tobacco Review of Systems Const All systems reviewed & are unremarkable except as noted in HPI and below Physical Exam Vital Signs: Last Vital Signs Pulse 68 05/06/23 10:14 Resp 16 05/06/23 10:14 BP 132/76 05/06/23 10:14 Pulse Ox 95 05/06/23 10:14 Oxygen Delivery Method Room Air 05/06/23 10:14 BMI result Body Mass Index 34.2 Const General: well developed and tired appearing; No acute distress Nutritional Appearance: overweight Orientation/consciousness: patient oriented x3 Chest Chest palpation & inspection: normal inspection of the chest Resp Effort & Inspection: normal respiratory effort, able to speak in complete sentences, normal respiratory pattern, no audible wheezes, no cough, respiratory effort not decreased, no grunting, not labored and no nasal flaring Cardio Jugular venous distension: no JVD GI Inspection: Yes normal to inspection Back/Spine/Pelvis Other: Unable to stand without support on bilateral feet. Use walker for ambulation. 2 point discrimination is negative on the left foot. Reports numbness is spreading to the mid of the lower leg. Bilateral Achillis and bilateral patellar reflexes are absent. Unable to dorsiflex at all his left foot, very weak dorsiflexion of the right foot. Unable to dorsiflex bilaterally great toe. SLR is positive for pain increase bilaterally. Forceful dorsiflexion of the bilateral feet results in significant pain increase in the back with radiation into bilateral lower extremities. Loading test is positive bilaterally. Valsalva maneuver is equivocal. Could be positive hard to explain to the patient. Neuro General: patient oriented x3 Psych Appearance: grossly normal Mental Status: mental status grossly normal Speech and movement: Normal speech and movement present Affect: normal affect Attitude: cooperative Thought process: Normal thought process present Thought content: Normal thought content present Insight: Good insight present (Psych) Results Reviewed Results Reviewed: 04/25/23 Procedure(s): MR lumbar spine wo con EXAMINATION: MR LUMBAR SPINE WITHOUT CONTRAST CLINICAL INFORMATION: Spondylosis without myelopathy or radiculopathy. COMPARISON: CT scan of the abdomen and pelvis 10/07/2017. TECHNIQUE: MRI of the lumbar spine was obtained using routine sequences without contrast. FINDINGS: VERTEBRAL BODIES AND PARASPINAL STRUCTURES: There is a 4 mm grade 1 anterolisthesis of L5 on S1 secondary to bilateral L5 partes interarticulares defects. There is a minimal retrolisthesis of L4 on L5. There is mild reversal of the lumbar lordosis at L1-L2. There is mild loss of vertebral body height of L1 inferiorly, stable, consistent with chronic changes. There is multilevel narrowing of intervertebral disc height, most severe at L1-L2 and L5-S1. There are Schmorl's nodes at adjacent endplates at L1-L2. Vertebral body heights are maintained, and no fractures are demonstrated. Overall, marrow signal is slightly heterogenous. The study redemonstrates an extrarenal pelvis on the right. The visualized pelvic structures are unremarkable. CONUS MEDULLARIS AND CAUDA EQUINA: Normal, terminating at the level of T12-L1. The lower thoracic spinal cord appears normal. The cauda equina nerve roots and filum terminale appear normal. SPINAL LEVELS: L1-L2: The facet joints appear normal. There is a shallow posterior disc protrusion without significant mass effect on the thecal sac and there is no central stenosis. The neural foramina are patent bilaterally. L2-L3: There is mild to moderate bilateral facet arthropathy with ligamenta flava hypertrophy and facet joint effusions. There is a shallow posterior disc protrusion which is more prominent on the right with mild narrowing of the right subarticular recess. There is no central stenosis. The neural foramina are patent bilaterally. L3-L4: There is mild to moderate bilateral facet arthropathy with ligamenta flava hypertrophy and facet joint effusions. Posterior disc contour is normal in is no central stenosis. The neural foramina are patent bilaterally. L4-L5: There is moderate bilateral facet arthropathy with ligamenta flava hypertrophy and facet joint effusions. There is a broad-based posterior disc protrusion extending into the neural foramina bilaterally, more prominently on the right and there is impingement on the exiting L4 nerve roots bilaterally. There is no central stenosis. L5-S1: There is moderate bilateral facet arthropathy. There are bilateral L5 partes interarticulares defects. There is unroofing of the disc as a result of the anterolisthesis. There are bilateral foraminal disc protrusions, more prominent on the left. The protrusion extends far laterally with impingement on the exiting and extraforaminal segments of the bilateral L5 nerve roots. There is no central stenosis. IMPRESSION: 1. There is a grade 1 anterolisthesis of L5 on S1 secondary to bilateral L5 partes interarticulares defects. There are bilateral foraminal disc protrusions, more prominent on the left with impingement on the exiting and extraforaminal segments of the bilateral L5 nerve roots. There is no central stenosis. 2. At L4-L5 there is facet arthropathy and there is a broad-based posterior disc protrusion extending into the neural foramina with impingement on the exiting L4 nerve roots bilaterally. There is no central stenosis. 3. Milder spondylitic and facet arthropathic changes are demonstrated at other levels as described above. Assessment & Plan Assessment & Plan (1) Spondylosis of lumbar joint: Code(s): M47.816 - Spondylosis without myelopathy or radiculopathy, lumbar region (2) Disc degeneration, lumbar: Code(s): M51.36 - Other intervertebral disc degeneration, lumbar region (3) Radiculopathy, lumbar region: Code(s): M54.16 - Radiculopathy, lumbar region (4) Chronic pain syndrome: Code(s): G89.4 - Chronic pain syndrome (5) Spondylolisthesis at L5-S1 level: Code(s): M43.17 - Spondylolisthesis, lumbosacral region Plan Of this patient exhibits signs of significant nerve root compressions on the bilateral lower extremities . On MRI as above there are some nerve root compressions secondary to protrusions of the vertebral discs as well as spondylolisthesis of L5 on S1. I will schedule him for the referral to neurosurgical consult.. In his chart there is mentioning of ?lythic lesion ?. He reports to me that there was suspicion of the cancer in the past but workup resulted in no malignancy found. Orders: Referrals Neurosurgery Referral G89.4 - Chronic pain syndrome, M43.17 - Spondylolisthesis, lumbosacral region, M47.816 - Spondylosis without myelopathy or radiculopathy, lumbar region, M51.36 - Other intervertebral disc degeneration, lumbar region, M54.16 - Radiculopathy, lumbar region Coding Level of Care Code Est Pt Level 4 (86220) Diagnoses Spondylosis of lumbar joint M47.816 Disc degeneration, lumbar M51.36 Radiculopathy, lumbar region M54.16 Chronic pain syndrome G89.4 Spondylolisthesis at L5-S1 level M43.17
== END 2023-05-06 10:38 | disposition home or self-care (01) ==
PROVIDERS: PCP Student in an Organized Health Care Education/Training Program; Visit Provider Anesthesiology
DX: G89.4 Chronic pain syndrome (principal); M47.26 Other spondylosis with radiculopathy, lumbar region; M51.36 Other intervertebral disc degeneration, lumbar region; M43.17 Spondylolisthesis, lumbosacral region
CPT/HCPCS: 99214

== ENCOUNTER → 2023-05-06 09:42 | Outpatient (BNVA) | payer MEDICAID, SELFPAY | PROVIDERS: PCP Student in an Organized Health Care Education/Training Program; Visit Provider Anesthesiology | DX: M47.816 Spondylosis without myelopathy or radiculopathy, lumbar region (principal); M51.36 Other intervertebral disc degeneration, lumbar region; M54.16 Radiculopathy, lumbar region; M43.17 Spondylolisthesis, lumbosacral region; G89.4 Chronic pain syndrome | CPT/HCPCS: 99212 ==

== ENCOUNTER 2023-06-14 09:23 | Outpatient (REF) | payer MEDICAID, SELFPAY ==
--- NOTE | ~2023-06-14 | XR_ITS ---
EXAMINATION: XR LUMBOSACRAL SPINE WITH OBLIQUES CLINICAL INFORMATION: Spondylolisthesis COMPARISON: MRI of lumbar spine on 04/25/2023 TECHNIQUE: AP, both oblique, and lateral views of the lumbar spine. Lateral view of the lumbosacral junction. FINDINGS: The visualized lumbar vertebrae are intact with anterior L5 on S1 displacement by 0.8 cm. Radiolucency is seen in the region of L5 pars interarticulares. There is moderate decrease in L5-S1 disc height. Sharp lateral syndesmophytes are seen at L3 and L4 levels. Anterior L5 on S1 displacement remains stable at 0.8 cm in lateral flexion and extension x-rays. XR/XR lumbar spine 4V min IMPRESSION: 1. Moderate L5-S1 degenerative lumbar disc disease, bilateral L5 spondylolysis and grade 1 L5-S1 spondylolisthesis which remains stable in lateral flexion and extension x-rays are demonstrated. 2. No fracture or dislocation of lumbar spine is seen.
== END 2023-06-14 09:24 | disposition home or self-care (01) ==
LOC: HO.HOSX 09:23
PROVIDERS: PCP Student in an Organized Health Care Education/Training Program; Referring Provider Anesthesiology; Visit Provider Physician Assistant
DX: M43.17 Spondylolisthesis, lumbosacral region (principal)
CPT/HCPCS: 72110; 99212

== ENCOUNTER 2023-06-14 09:23 | Outpatient (AMB) | payer MEDICAID, SELFPAY ==
--- NOTE | 2023-06-14 09:51 | HO.SPINEOV ---
Intake Intake Visit Reasons: Radiculopathy Intake Note: Mr. Rae is here today c/o low back pain radiating into both legs. MRI done @ [facility] [place] Removable Prosthodontist Required: Yes Allergies No Known Allergies [No Known Allergies*] Allergy (Verified 06/18/23 10:53) Assessment & Plan Assessment & Plan (1) Spondylolisthesis at L5-S1 level: Code(s): M43.17 - Spondylolisthesis, lumbosacral region Plan: Dear Dr. Kay, Thank you for referring Sravan to our office today. He is a Pleasant 62-year-old male who comes in today with a chief complaint of low back pain and bilateral leg pain that has been persistent for the last 3 years. He reports that this is slowly became worse over the course of the last few years and cannot remember any inciting incident that caused his initial pain. He describes his pain as severe, 10/10 pain that waxes and wanes throughout the day depending on what he is doing. He reports that standing, moving, an even lying down aggravate his pain, and that sitting and supporting himself with his arms alleviate his pain. When describing the radiation of his pain he states that it starts in his low back, moves diffusely down his bilateral hips, travels down his bilateral gastrocnemius, and terminates at the bottom of his feet. He has slowly lost feeling and function of his left foot over the years, to the point where he is unable to move his left foot or toes at all. He has tried physical therapy and [id number] remedies such as Tylenol, ibuprofen, ice, heat, pain patches all without alleviation of symptoms. PMH: High blood pressure, MATEO, Jose's esophagus, tubular adenoma of colon, GERD, unspecified seizure disorder (has not had a seizure in 10 years), peripheral neuropathy. HX unspecified kidney surgery at 19 years old, has surgical scar on right posterior/lateral side of abdomen. Social hx: Patient does not smoke, reports no substance use. Medications: Aripiprazole, bisacodyl, vitamin B12, docusate, duloxetine, the folic acid, furosemide, Linzess, melatonin, mirtazapine, pantoprazole, phenobarbital, simethicone, simvastatin, trazodone. Allergies: NKDA. Physical exam: Sravan has 5/5 strength in his upper extremities. 4/5 strength with right-sided hip flexion and knee extension, 3/5 strength with right-sided dorsiflexion, plantar flexion and EHL. 4/5 strength with left-sided hip flexion, 3/5 strength with left-sided knee extension, 0/5 strength with left-sided plantar flexion, dorsiflexion, EHL. Sensation diminished in bilateral lower extremities. Complete loss of sensation of left-sided toes, and bottom of left-sided foot. Patient is able to rise from a seated position but has extreme difficulty in needs assistance. He is able to ambulate with a walker and has a notable drop foot on the left side. (+) bilateral straight leg raise, (-) Winters's, (-) clonus, (-) Babinski. Imaging review: MRI completed here at [facility] [place] shows severe bilateral foraminal compression likely due to posterior disc protrusion at L4-5 and L5-S1. Posterior disc bulge is worse at L5-S1, foraminal stenosis is worse at L5-S1. There is also moderate central canal stenosis at these levels. There is a pars interarticularis defect at L5-S1, which can also be seen on the patient's previous CT scan. There is also significant facet arthropathy seen at L4-5. Grade 1 spondylolisthesis noted at L5-S1 as well. Impression: Sravan is a 62-year-old male who comes in today with a chief complaint of 3 years of longstanding low back pain and bilateral leg pain. He also endorses loss of sensation below the knees in his bilateral legs, worse on the left than the right. He states that the symptoms have developed slowly over the years, and have worsened recently to the point where he cannot lift his left foot off the ground at all and has chronic severe pain in his lower extremities. He reports a prior diagnostic history of peripheral neuropathy, which we are unable to confirm at this time. He states that this was diagnosed at [facility], so we will reach out to their office is to get records of his physical presentation prior to diagnosis and the results of his EMG. It is clear that he has posterior disc protrusion affecting the S1 dermatome, alongside bilateral foraminal stenosis at L4-5 and L5-S1, but it is unclear how much of the symptoms are either masked or contributed to by his peripheral neuropathy. COSTA Ayala and I discussed the possibility of an L5-S1 ALIF to address the instability, spondylolisthesis and compression at this level. The tentative plan will be to see him back in the office alongside Dr. Shepherd after we obtain his records from [facility]. Dr. Shepherd will need to review the patient case and come up with a definitive surgical plan. Thank you for allowing us to care for your patient. The total time spent with this visit with this patient was 60 minutes reviewing history, physical exam, MRI imaging review, XR imaging review, and implementation of treatment plan or further diagnostic testing. Varinder Shepherd MD,PhD [facility] Orders: Orders XR lumbar spine 4V min 06/14/23 M43.17 - Spondylolisthesis, lumbosacral region Coding Level of Care Code New Pt Level 5 (31837) Diagnoses Spondylolisthesis at L5-S1 level M43.17
== END 2023-06-14 11:42 | disposition home or self-care (01) ==
PROVIDERS: PCP Student in an Organized Health Care Education/Training Program; Referring Provider Anesthesiology; Visit Provider Physician Assistant
DX: M43.17 Spondylolisthesis, lumbosacral region (principal)
CPT/HCPCS: 99205

== ENCOUNTER 2023-06-18 10:33 | Outpatient (AMB) | payer MEDICAID, SELFPAY ==
--- NOTE | 2023-06-18 10:52 | MHC.OFFVIS ---
Intake Vital Signs 06/18/23 10:55 Height 5 ft 8 in Weight 231 lb BMI 35.1 BP 112/62 Blood Pressure Location Rt brachial Position Sitting Pulse 75 Pulse Source Pulse Oximeter Pulse Oximetry (%) 96 Oxygen Delivery Method Room Air Intake Visit Reasons: follow up - LVM Intake Note: F/U MATEO Metal Lather Required: Yes Allergies No Known Allergies [No Known Allergies*] Allergy (Verified 06/18/23 10:53) HPI HPI Comments History of Present Illness Details 62 y/o male patient presents for follow up of seizure disorder and gait problem. He was restless with CPAP, could not sleep well, so he returned CPAP. Pt does not want to use CPAP. Pt's reports that he is in processing for back surgery. He was diagnosed with Spondylolisthesis, lumbosacral region. He has h/o seizures since childhood, secondary generalized tonic clonic seizures. He is on phenobarb 64.8 mg tid, dilantin 100mg tid. His last seizure was 13 years ago. He is complaint with medications. No break seizures reported. [facility] Medical History Hypersomnia Snoring Gait disorder MATEO on CPAP Arthritis Lower extremity edema Depression Seizure disorder GERD (gastroesophageal reflux disease) Chronic idiopathic constipation Surgical History History of intestinal surgery History of esophagogastroduodenoscopy (EGD) (~2017) Hx of colonoscopy (~2017) Family History Mother Heart attack Social History Alcohol intake: never Patient Tobacco Use Status: Never used Tobacco Review of Systems Const All systems reviewed & are unremarkable except as noted in HPI and below Physical Exam Vital Signs: Last Vital Signs Pulse 75 06/18/23 10:55 BP 112/62 06/18/23 10:55 Pulse Ox 96 06/18/23 10:55 Oxygen Delivery Method Room Air 06/18/23 10:55 BMI result Body Mass Index 35.1 Const General: cooperative, comfortable and no acute distress Nutritional Appearance: obese Orientation/consciousness: patient oriented x3 Limitations: physical limitations and ambulation with walker HEENT Head: Yes normal to inspection Eyes Pupils: Equal, round and reactive pupils present Neuro General: patient oriented x3, tone normal and moves all extremities Cranial nerves: Yes Facial sensation intact/muscles of mastication intact, Yes Equal, round and reactive pupils present, Yes Bilaterally intact EOM present, Yes Nystagmus not present, Yes Normal facial strength present, Yes Midline tongue present, Yes Symmetric palate elevation present and Yes Ability to bilaterally elevate shoulders present Cognition (Neuro): normal cognition Gait exam (Neuro): Other gait observations present (wide based , high steppage on right) Motor exam (neuro): Other motor observations present (weakness in LE) Deep tendon reflexes (DTR's): Right triceps reflex intensity grade: 0, Left triceps reflex intensity grade: 0, Rt Biceps (C5, C6): 0, Left biceps reflex intensity grade: 0, Right brachioradialis reflex intensity grade: 0, Left brachioradialis reflex intensity grade: 0, Right patellar reflex intensity grade: 0 and Left patellar reflex intensity grade: 0 Coordination: [id number] test normal Assessment & Plan Assessment & Plan (1) Gait disorder: Comment: he had a detailed evaluation with Dr. Kapoor Code(s): R26.9 - Unspecified abnormalities of gait and mobility (2) Seizure disorder: Code(s): G40.909 - Epilepsy, unspecified, not intractable, without status epilepticus (3) MATEO on CPAP: Comment: Pt returned CPAP, does not want to retry. Code(s): G47.33 - Obstructive sleep apnea (adult) (pediatric); Z99.89 - Dependence on other enabling machines and devices Plan Advised patient to continue to take phenobarb 64.8mg tid and dilantin 100mg tid. Wt reduction advised. Will consider Inspire. Coding Level of Care Code Est Pt Level 4 (84251) Diagnoses Gait disorder R26.9 Seizure disorder G40.909 MATEO on CPAP G47.33; Z99.89
[2023-06-18 10:55] VITALS: BP 112/62; PULSE 75; O2SAT 96; BMI 35.1
== END 2023-06-18 11:09 | disposition home or self-care (01) ==
PROVIDERS: PCP Student in an Organized Health Care Education/Training Program; Visit Provider Nurse Practitioner Family
DX: R26.9 Unspecified abnormalities of gait and mobility (principal); G40.909 Epilepsy, unspecified, not intractable, without status epilepticus; G47.33 Obstructive sleep apnea (adult) (pediatric); Z99.89 Dependence on other enabling machines and devices
CPT/HCPCS: 99214

== ENCOUNTER → 2023-06-18 10:33 | Outpatient (BNVA) | payer MEDICAID, SELFPAY | PROVIDERS: PCP Student in an Organized Health Care Education/Training Program; Visit Provider Nurse Practitioner Family | DX: G40.909 Epilepsy, unspecified, not intractable, without status epilepticus (principal); R26.9 Unspecified abnormalities of gait and mobility; G47.33 Obstructive sleep apnea (adult) (pediatric); Z99.89 Dependence on other enabling machines and devices | CPT/HCPCS: 99212 ==

== ENCOUNTER 2023-06-28 10:55 | Outpatient (AMB) | payer MEDICAID, SELFPAY ==
--- NOTE | 2023-06-28 11:07 | MHC.OFFVIS ---
Intake Vital Signs 06/28/23 11:08 Height 5 ft 8 in Weight 227 lb 8.273 oz BMI 34.6 BP 158/82 H Blood Pressure Location Lt brachial Position Sitting Pulse 92 Intake Visit Reasons: 6mnth follow up Intake Note: Patient presents to in office today in follow up of 6 months GERD. CC: Pt reports doing well. Denies having any GI symptoms today. Projects Manager Required: No Accompanied by: Self / Same As Patient Allergies No Known Allergies [No Known Allergies*] Allergy (Verified 06/18/23 10:53) Medication List - Last Reconciled 06/28/23 by BLANCA Astorga aripiprazole 10 mg PO DAILY bisacodyl 10 mg (2 x 5 mg) PO BEDTIME PRN cyanocobalamin (vitamin B-12) (Vitamin B-12) 1,000 mcg PO QAM docusate sodium (Colace) 100 mg PO .QD duloxetine 60 mg PO QAM ergocalciferol (vitamin D2) (Vitamin D2) 1,250 mcg PO QWEEK esomeprazole magnesium 20 mg PO DAILY folic acid 0.4 mg PO QPM furosemide 20 mg PO BID linaclotide (Linzess) 72 mcg PO QAM melatonin 3 mg PO QAM mirtazapine 15 mg PO BEDTIME pantoprazole (Protonix) 40 mg PO BID phenobarbital 64.8 mg PO TID 90 days phenytoin sodium extended (Dilantin Extended) 1 cap PO TID simethicone 180 mg PO TID simvastatin 10 mg PO BEDTIME sod picosulf-mag ox-citric ac 10 mg-3.5 gram- 12 gram/160 mL (Clenpiq) 160 mL PO DAILY trazodone 200 mg PO BEDTIME PRN HPI 6mnth follow up HPI Details Assessment & Plan (1) GERD (gastroesophageal reflux disease): Code(s): K21.9 - Gastro-esophageal reflux disease without esophagitis Plan: SLOVENIAN #[address] STENOGRAPHER interprets per pt request. He is moving his bowels well with the LInzess 72mcg and colace. He will need a scope next year, they want to consider low volume prep. He continues simethicone and esomeprazole with good GERD control. ROV 6 mos. (2) Abdominal bloating: Code(s): R14.0 - Abdominal distension (gaseous) (3) Chronic idiopathic constipation: Code(s): K59.04 - Chronic idiopathic constipation (4) Jose's esophagus determined by biopsy: Comment: Will rescope in 2023 when he is due for colonoscopy rescope Code(s): K22.70 - Jose's esophagus without dysplasia Medications: Refilled linaclotide (Linze ss) 72 mcg PO QAM 30 caps 6RF K59.04 - Chronic i diopathic constipa tion pantoprazole (Prot michelle) 40 mg PO BID 60 t abs 6RF K22.70 - Jose's esophagus without dysplasia simethicone 180 mg PO TID 90 caps 6RF R14.0 - Abdominal distension (gaseou s) docusate sodium (C olace) 100 mg PO .QD 60 caps 6RF K59.04 - Chronic i diopathic constipa tion bisacodyl 10 mg (2 x 5 mg) P O BEDTIME PRN 60 t abs 2RF for consti pation K59.04 - Chronic i sharla TODAYS VISIT [place] #Carol Pineda He continues to do well on his Linzess, Colace, bisacodyl, pantoprazole 40 mg twice a day, and simethicone. He is due for Barretts screening and a colonoscopy screening so we will get this scheduled. He has obstructive sleep apnea and no other breathing problems and denies any cardiac problems. There are no other problems with anesthesia or sedation. There are no infectious disease problems. He has a history of tubular adenoma and his last scope was in 2020 with a 3 year repeat needed because of the size polyps. [facility] Medical History Hypersomnia Snoring Gait disorder MATEO on CPAP Arthritis Lower extremity edema Depression Seizure disorder GERD (gastroesophageal reflux disease) Chronic idiopathic constipation Surgical History History of intestinal surgery History of esophagogastroduodenoscopy (EGD) (~2017) Hx of colonoscopy (~2017) Family History Mother Heart attack Social History Alcohol intake: never Patient Tobacco Use Status: Never used Tobacco Review of Systems Const Denies fatigue, Denies fever(s), Denies night sweats, Denies poor appetite and Denies weight loss ENT Reports Normal hearing present, Denies dysphagia, Denies odynophagia, Denies throat swelling and Denies tongue swelling Card Reports no additional complaints Resp Reports no additional complaints GI Denies abdominal pain, Denies melena, Reports bloating, Denies hematochezia, Reports constipation, Denies GI cramping, Denies dysphagia, Denies excessive flatus, Denies early satiety, Reports heartburn, Denies diarrhea, Denies nausea, Denies odynophagia, Denies vomiting and Denies hematemesis Musc Reports abnormal gait Skin/Breast Denies pruritus, Denies lesions, Denies rash and Denies jaundice Neuro Reports Normal hearing present, Denies Abnormal speech present and Reports abnormal gait Endo Denies fatigue Aller/Immun Denies throat swelling and Denies tongue swelling Physical Exam Vital Signs: Last Vital Signs Pulse 92 06/28/23 11:08 BP 158/82 H 06/28/23 11:08 BMI result Body Mass Index 34.6 Const General: cooperative, no acute distress, well developed and well groomed Nutritional Appearance: well nourished and obese Orientation/consciousness: oriented to person, oriented to place and oriented to time Limitations: language barrier and ambulation with walker HEENT Head: Yes normocephalic and Yes atraumatic Eyes General: appearance normal, both eyes and all related structures Pupils: Equal, round and reactive pupils present Neck Neck: Yes normal visual inspection and Yes no lymphadenopathy Thyroid: Thyroid normal Resp Effort & Inspection: normal respiratory effort and able to speak in complete sentences Auscultation: clear to auscultation bilaterally Cardio Rate: regular rate Rhythm: regular rhythm Heart sounds: Normal, physiologic split S2 sound present Peripheral pulses: radial pulses present and posterior tibial pulses present GI Inspection: No distended, Yes Abdominal panniculus present and Yes obesity Palpation (GI): Soft to palpation, nontender, no guarding, not rigid and No hepatosplenomegaly present Percussion: Yes normal to percussion Auscultation: normal bowel sounds Rectal Exam - Male: Yes deferred Skin General skin exam: no rashes or lesions noted, turgor normal, skin not dry, no jaundice, No spider nevi and no striae Rashes: no rashes Nails: normal Neuro General: oriented to person, oriented to place and oriented to time Cranial nerves: Yes Equal, round and reactive pupils present and Yes Normal hearing present Speech: No Abnormal speech present Extrem General: Yes normal to inspection, No clubbing, No cyanosis and No edema Psych Appearance: grossly normal and well kempt Mental Status: mental status grossly normal Speech and movement: Normal speech and movement present Affect: normal affect Attitude: cooperative Thought process: Normal thought process present and not confabulating Thought content: Normal thought content present Insight: Limited insight present (Psych) Judgement: Limited judgement present (Psych) Results Reviewed Results Reviewed: Laboratory Tests 04/22/23 10:46 Estimated GFR > 60 Total Bilirubin 0.3 Direct Bilirubin 0.1 AST 24 ALT 31 Alkaline Phosphatase 108 Assessment & Plan Assessment & Plan (1) Tubular adenoma of colon: Comment: 2017 colonoscopy [facility] [place], 2020 scope equals 2 TA is repeat 3 years Code(s): D12.6 - Benign neoplasm of colon, unspecified (2) Jose's esophagus determined by biopsy: Comment: Will rescope in 2023 when he is due for colonoscopy rescope Code(s): K22.70 - Jose's esophagus without dysplasia (3) Pre-op examination: Code(s): Z01.818 - Encounter for other preprocedural examination (4) MATEO on CPAP: Comment: Pt returned CPAP, does not want to retry. Code(s): G47.33 - Obstructive sleep apnea (adult) (pediatric); Z99.89 - Dependence on other enabling machines and devices (5) Seizure disorder: Code(s): G40.909 - Epilepsy, unspecified, not intractable, without status epilepticus (6) GERD (gastroesophageal reflux disease): Code(s): K21.9 - Gastro-esophageal reflux disease without esophagitis (7) Abdominal bloating: Code(s): R14.0 - Abdominal distension (gaseous) (8) Chronic idiopathic constipation: Code(s): K59.04 - Chronic idiopathic constipation Plan [place] #Carol LIve He continues to do well on his Linzess, Colace, bisacodyl, pantoprazole 40 mg twice a day, and simethicone. He is due for Barretts screening and a colonoscopy screening so we will get this scheduled. He has obstructive sleep apnea and no other breathing problems and denies any cardiac problems. There are no other problems with anesthesia or sedation. There are no infectious disease problems. He has a history of tubular adenoma and his last scope was in 2020 with a 3 year repeat needed because of the size polyps. Orders: Orders EGD/[facility] Combo - GI Use Only 06/28/23 D12.6 - Benign neoplasm of colon, unspecified, K22.70 - Jose's esophagus without dysplasia Coding Level of Care Code Est Pt Level 4 (45411) Diagnoses Tubular adenoma of colon D12.6 Jose's esophagus determined by biopsy K22.70 Pre-op examination Z01.818 MATEO on CPAP G47.33; Z99.89 Seizure disorder G40.909 GERD (gastroesophageal reflux disease) K21.9 Abdominal bloating R14.0 Chronic idiopathic constipation K59.04
[2023-06-28 11:08] VITALS: BP 158/82; PULSE 92; BMI 34.6
== END 2023-06-28 11:47 | disposition home or self-care (01) ==
PROVIDERS: PCP Student in an Organized Health Care Education/Training Program; Visit Provider Nurse Practitioner
DX: D12.6 Benign neoplasm of colon, unspecified (principal); K22.70 Barrett's esophagus without dysplasia; Z01.818 Encounter for other preprocedural examination; G47.33 Obstructive sleep apnea (adult) (pediatric); Z99.89 Dependence on other enabling machines and devices; G40.909 Epilepsy, unspecified, not intractable, without status epilepticus; K21.9 Gastro-esophageal reflux disease without esophagitis; R14.0 Abdominal distension (gaseous); K59.04 Chronic idiopathic constipation
CPT/HCPCS: 99214

== ENCOUNTER → 2023-06-28 10:55 | Outpatient (BNVA) | payer MEDICAID, SELFPAY | PROVIDERS: PCP Student in an Organized Health Care Education/Training Program; Visit Provider Nurse Practitioner | DX: Z01.818 Encounter for other preprocedural examination (principal); K21.9 Gastro-esophageal reflux disease without esophagitis; K59.04 Chronic idiopathic constipation; K22.70 Barrett's esophagus without dysplasia; D12.6 Benign neoplasm of colon, unspecified; G47.33 Obstructive sleep apnea (adult) (pediatric); G40.909 Epilepsy, unspecified, not intractable, without status epilepticus; R14.0 Abdominal distension (gaseous); Z99.89 Dependence on other enabling machines and devices | CPT/HCPCS: 99212 ==

== ENCOUNTER 2023-11-26 09:20 | Outpatient (REF) | payer MEDICAID, SELFPAY ==
--- NOTE | 2023-11-26 09:27 | EMG_ITS ---
Bilateral tibial and peroneal motor studies were performed. Bilateral superficial peroneal and sural sensory studies were performed and paraspinal muscles were tested with a needle. This exam was also somewhat limited because of his disability. IMPRESSION: Severe sensory motor peripheral neuropathy affecting legs. Because of lack of any response noted on nerve conduction studies, it was not possible to determine its axonal or demyelinating nature. I suggest EMG nerve conduction study of 1 upper extremity, which could help to determine its nature. MD MARAH Crowell/BILLY / [phone]
== END 2023-11-26 09:21 | disposition home or self-care (01) ==
LOC: HO.NEURO 09:20
PROVIDERS: PCP Student in an Organized Health Care Education/Training Program; Visit Provider Physician Assistant
DX: M54.50 Low back pain, unspecified (principal)
CPT/HCPCS: 95886; 95910

== ENCOUNTER 2023-12-03 08:18 | Day surgery (SDC) | payer MEDICAID, SELFPAY ==
--- NOTE | 2023-12-02 09:18 | P.CONAN_ITS ---
Documented by User: Carina Woo NP 12/02/23 09:19 HPI - Anesthesia Eval Consult details Narrative: 63yo M for Upper Endoscopy and Colonoscopy Last seizure 13 years ago per last neuro office visit [facility] Active Problems Active Problems: All Active Problems Lumbago (Acute) Pre-op examination (Acute) Spondylolisthesis at L5-S1 level (Acute) Chronic pain syndrome (Acute) Radiculopathy, lumbar region (Acute) Disc degeneration, lumbar (Acute) Spondylosis of lumbar joint (Acute) Hypersomnia (Acute) Snoring (Acute) Gait disorder (Acute) Seizure disorder (Acute) MATEO on CPAP (Acute) Abdominal bloating (Acute) GERD (gastroesophageal reflux disease) (Acute) Chronic idiopathic constipation (Acute) Jose's esophagus determined by biopsy (Acute) Tubular adenoma of colon (Acute) Past Medical History Medical History Hypersomnia Snoring Gait disorder MATEO on CPAP Arthritis Lower extremity edema Depression Seizure disorder GERD (gastroesophageal reflux disease) Chronic idiopathic constipation Family History Family History Mother Heart attack Surgical History Surgical History History of intestinal surgery History of esophagogastroduodenoscopy (EGD) (~2017) Hx of colonoscopy (~2017) Social History Social History Alcohol intake: never Patient Tobacco Use Status: Never used Tobacco Are you DNR?: No Advance Directives: No Advance Directives Information Provided: Yes Nutrition Risks: Acute nausea or vomiting x1 week Meds Allergies Allergy/AdvReac Type Severity Reaction Status Date / Time No Known Allergies Allergy Verified 06/18/23 10:53 [No Known Allergies*] Home Medications ?Medication ?Instructions ?Recorded ?Confirmed ?Last Taken ?Type phenytoin sodium extended 100 mg 1 cap PO TID 03/01/21 06/28/23 Unknown History capsule (Dilantin Extended) aripiprazole 10 mg tablet 10 mg PO DAILY 12/26/21 06/28/23 Unknown History cyanocobalamin (vitamin B-12) 1,000 mcg PO QAM 12/26/21 06/28/23 Unknown History 1,000 mcg tablet (Vitamin B-12) duloxetine 30 mg capsule,delayed 60 mg PO QAM 12/26/21 06/28/23 Unknown History release ergocalciferol (vitamin D2) 1,250 1,250 mcg PO QWEEK 12/26/21 06/28/23 Unknown History mcg (50,000 unit) capsule (Vitamin D2) folic acid 400 mcg tablet 0.4 mg PO QPM 12/26/21 06/28/23 Unknown History furosemide 20 mg tablet 20 mg PO BID 12/26/21 06/28/23 Unknown History simvastatin 10 mg tablet 10 mg PO BEDTIME 12/26/21 06/28/23 Unknown History trazodone 100 mg tablet 200 mg PO BEDTIME PRN 12/26/21 06/28/23 Unknown History melatonin 3 mg tablet 3 mg PO QAM 12/28/22 06/28/23 Unknown History mirtazapine 15 mg tablet 15 mg PO BEDTIME 12/28/22 06/28/23 Unknown History esomeprazole magnesium 20 mg 20 mg PO DAILY 02/18/23 06/28/23 Unknown History capsule,delayed release sod picosulf 10 mg-magnes 3.5 160 ml PO DAILY 06/28/23 06/28/23 Unknown History gram-citric 12 gram/160 mL oral solution (Clenpiq) Assessment and Plan Assessment Anesthesia Assessment: Chart Reviewed Documented by User: iRtika Olvera MD 12/03/23 08:58 [facility] Past Medical History Medical History Hypersomnia Snoring Gait disorder MATEO on CPAP Arthritis Lower extremity edema Depression Seizure disorder GERD (gastroesophageal reflux disease) Chronic idiopathic constipation Family History Family History Mother Heart attack Surgical History Surgical History History of intestinal surgery History of esophagogastroduodenoscopy (EGD) (~2016) Hx of colonoscopy (~2017) History of Problems with Anesthesia: No Social History Social History Alcohol intake: never Patient Tobacco Use Status: Never used Tobacco Are you DNR?: No Advance Directives: No Advance Directives Information Provided: Yes Nutrition Risks: Acute nausea or vomiting x1 week Meds Allergies Allergy/AdvReac Type Severity Reaction Status Date / Time No Known Allergies Allergy Verified 06/18/23 10:53 [No Known Allergies*] Home Medications ?Medication ?Instructions ?Recorded ?Confirmed ?Last Taken ?Type phenytoin sodium extended 100 mg 1 cap PO TID 03/01/21 06/28/23 Unknown History capsule (Dilantin Extended) aripiprazole 10 mg tablet 10 mg PO DAILY 12/26/21 06/28/23 Unknown History cyanocobalamin (vitamin B-12) 1,000 mcg PO QAM 12/26/21 06/28/23 Unknown History 1,000 mcg tablet (Vitamin B-12) duloxetine 30 mg capsule,delayed 60 mg PO QAM 12/26/21 06/28/23 Unknown History release ergocalciferol (vitamin D2) 1,250 1,250 mcg PO QWEEK 12/26/21 06/28/23 Unknown History mcg (50,000 unit) capsule (Vitamin D2) folic acid 400 mcg tablet 0.4 mg PO QPM 12/26/21 06/28/23 Unknown History furosemide 20 mg tablet 20 mg PO BID 12/26/21 06/28/23 Unknown History simvastatin 10 mg tablet 10 mg PO BEDTIME 12/26/21 06/28/23 Unknown History trazodone 100 mg tablet 200 mg PO BEDTIME PRN 12/26/21 06/28/23 Unknown History melatonin 3 mg tablet 3 mg PO QAM 12/28/22 06/28/23 Unknown History mirtazapine 15 mg tablet 15 mg PO BEDTIME 12/28/22 06/28/23 Unknown History esomeprazole magnesium 20 mg 20 mg PO DAILY 02/18/23 06/28/23 Unknown History capsule,delayed release sod picosulf 10 mg-magnes 3.5 160 ml PO DAILY 06/28/23 06/28/23 Unknown History gram-citric 12 gram/160 mL oral solution (Clenpiq) Exam Airway Mallampati Class: III TM Dist: >3cm Neck ROM: Limited Loose/Missing/Broken Teeth: No Heart: RRR Lungs: CTA Assessment and Plan Assessment Anesthesia Assessment: Anesthesia Plan Discussed Final Anesthetic Review History of Problems with Anesthesia: No NPO: Yes ASA Class: III Final Preanesthetic Review: Meds/Allgs Chart Reviewed, Consent Obtained/Reviewed and Anes Risks/Benef Reviewed Patient Risk: Intermediate Procedure Risk: Intermediate Anesthetic Plan Anesthetic Plan: MAC: Disposition: Standard PACU
--- NOTE | 2023-12-03 08:43 | MHC.SHP ---
Pre-Procedural Eval Section A - 24 Hr Update-Section A only Date of Service: 12/03/23 Section B - Complete if H&P > 30 days Chief Complaint: GERD and hx of colon polyps Relevant Family History (Specify if Yes): No Relevant Social History: None Present Medications: see Short Stay Collaborative assessment Medical History: Significant History (Hypersomnia Snoring Gait disorder MATEO on CPAP Arthritis Lower extremity edema Depression Seizure disorder GERD (gastroesophageal reflux disease) Chronic idiopathic constipation) History of Previous Operations: Relevant previous surgery/procedure and date(s) (History of intestinal surgery History of esophagogastroduodenoscopy (EGD) (~2016) Hx of colonoscopy (~2016)) Allergies: Allergies Allergy/AdvReac Type Severity Reaction Status Date / Time No Known Allergies Allergy Verified 06/18/23 10:53 [No Known Allergies*] Review of Systems Sugical H&P ROS: Negative: Constitution, Cardiovascular, Respiratory, Neurological, Psychiatric, Hem-Onc, Allergic/Immunologic, Gastrointestinal, Genitourinary, Musculoskeletal, Integumentary, Endocrine and Eyes/Ears/Nose/Throat Exam Surgical H&P Exam: Normal: HEENT, Normal: Heart, Normal: Lungs, Normal: Extremities, Normal: Abdomen, Normal: Skin and Normal: Neurological Plan Diagnosis/Plan: Unchanged I have reviewed the history and physical and performed a pertinent physical examination on my patient. No changes have occurred unless specified. Time Spent With Patient Time: Total time managing care of this patient today ____ minutes.
[2023-12-03 08:48] VITALS: BP 162/77; PULSE 78; RESP 18; TEMP 37; O2SAT 97; BMI 39.0
[2023-12-03] MEDS: Lactated Ringers 1,000 ML 100 ML IVCONT (09:02)
--- NOTE | 2023-12-03 09:22 | P.OP_ITS ---
Operative Note Operative Note Date of Service: 12/03/23 Narrative: Operative Information Procedure Description: EGD, Colonoscopy Indication: GERD and colon screening- hx of colon polyps Anesthesia: MAC FLEXIBLE TRANSORAL UPPER GASTROINTESTINAL ENDOSCOPY AND COLONOSCOPY PROCEDURE NOTE UPPER ENDOSCOPY Consent: Indications for the procedure and potential complications of bleeding, perforation, reaction to medications and missed diagnosis were discussed with the patient and informed consent was obtained. Instrument: Olympus GIF H 190 J mid size upper endoscope Monitoring: Vital signs and clinical assessment, continuous EKG monitoring, Pulse oximetry, Carbon Dioxide monitoring and blood pressure monitoring were done throughout the procedure. Procedure: The patient was placed in the left lateral decubitis position and pre-procedure medications were administered and a bite block was placed. The endoscope was inserted into the mouth and advanced under direct vision to the third part of duodenum. A careful inspection was made as the upper endoscope was withdrawn including a retroflexed examination of the proximal stomach; Findings and interventions are described below. Findings: Larynx:normal Esophagus: GE junction at 40 cm, diaphragm hiatus at 40 cm, bogginess and e rythema at GEJ, bx taken Stomach: Mild erythema rocío at antrum. Biopsies were obtained. Grade 2 flap valve on retroflexed examination of the cardia. Duodenum: Normal bulb and descending duodenum, Intervention: Biopsies as noted above COLONOSCOPY Instrument: Olympus variable stiffness adult scope 190L Colonoscopy Monitoring: Vital signs and clinical assessment, continuous EKG monitoring, Pulse oximetry, Carbon Dioxide monitoring and blood pressure monitoring were done throughout the procedure. Colon withdrawal time was 15 minutes. Procedure: The patient was placed in the left lateral decubitis position and pre-procedure medications were administered. After a digital rectal examination of the ano-rectum, the video colonoscope was inserted into the rectum and advanced through the colon to the cecum/TI. The colonoscope was slowly withdrawn in a retrograde panoramic fashion and the colon mucosa was carefully examined including a retroflexed view of the rectum. Findings and interventions are described below. Procedure Difficulty:moderate, looping, pressure applied Findings: Terminal Ileum-not intubated Cecum: diminutive polyp removed with cold forceps Ascending Colon: normal Transverse Colon - x 1 sessile polyp 6-8 mm removed with cold forceps Descending Colon: x 2 sessile polyps 10 mm removed with cold snare Sigmoid Colon: normal Rectum: Retroflexion with small internal hemorrhoids, grade I, 4-6 mm sessile polyp removed with cold forceps Anorectum - normal Colon preparation: [place] Bowel Preparation Scale Right colon; 2 Transverse colon: 2 Left colon; 1 (0 = Unprepared colon segment with mucosa not seen due to solid stool that cannot be cleared. 1 = Portion of mucosa of the colon segment seen, but other areas of the colon segment not well seen due to staining, residual stool and/or opaque liquid. 2 = Minor amount of residual staining, small fragments of stool and/or opaque liquid, but mucosa of colon segment seen well. 3 = Entire mucosa of colon segment seen well with no residual staining, small fragments of stool or opaque liquid) Impression and Post Procedure Diagnosis: Endoscopy Findings: esophagitis gastritis Colonoscopy Findings: polyps internal hemorrhoids Plan: Await Pathology results Repeat Colonoscopy in 3 years due to polyps and prep on left side or earlier if clinically indicated High fiber diet leaflet avoid straining at stool, epsom salts and sitz bath, anusol supps or cream cont with PPI--check compliance
[2023-12-03 10:29] VITALS: BP 96/51; PULSE 68; RESP 19; TEMP 36.3; O2SAT 96
[2023-12-03 10:33] VITALS: O2SAT 100
[2023-12-03 10:44] VITALS: BP 95/59; PULSE 69; RESP 20; O2SAT 99
[2023-12-03 10:59] VITALS: BP 125/56; PULSE 69; RESP 20; O2SAT 99
[2023-12-03 11:14] VITALS: TEMP 36.3; O2SAT 99
== END 2023-12-03 12:23 | disposition home or self-care (01) ==
PROVIDERS: PCP Student in an Organized Health Care Education/Training Program; Visit Provider Internal Medicine Gastroenterology
PROC: (CPT 45385; principal; 2023-12-03 10:00)
DX: Z12.11 Encounter for screening for malignant neoplasm of colon (principal); Z86.010 Personal history of colon polyps; D12.0 Benign neoplasm of cecum; D12.3 Benign neoplasm of transverse colon; D12.4 Benign neoplasm of descending colon; K62.1 Rectal polyp; K64.0 First degree hemorrhoids; K59.04 Chronic idiopathic constipation; K21.9 Gastro-esophageal reflux disease without esophagitis; K29.50 Unspecified chronic gastritis without bleeding; K20.80 Other esophagitis without bleeding; K44.9 Diaphragmatic hernia without obstruction or gangrene; G40.909 Epilepsy, unspecified, not intractable, without status epilepticus; G47.33 Obstructive sleep apnea (adult) (pediatric); G47.10 Hypersomnia, unspecified; Z99.89 Dependence on other enabling machines and devices; Z79.899 Other long term (current) drug therapy
CPT/HCPCS: 45385; 45380; 43239; 88305; 88313; 88342; J2704

== ENCOUNTER → 2023-12-03 08:18 | Outpatient (BNV) | payer MEDICAID, SELFPAY | PROVIDERS: PCP Student in an Organized Health Care Education/Training Program; Visit Provider Internal Medicine Gastroenterology | DX: Z12.11 Encounter for screening for malignant neoplasm of colon (principal); Z86.010 Personal history of colon polyps; D12.3 Benign neoplasm of transverse colon; D12.4 Benign neoplasm of descending colon; D12.0 Benign neoplasm of cecum; K64.0 First degree hemorrhoids; K21.00 Gastro-esophageal reflux disease with esophagitis, without bleeding; K29.70 Gastritis, unspecified, without bleeding | CPT/HCPCS: 43239; 45380; 45385 ==

== ENCOUNTER 2023-12-17 09:18 | Outpatient (AMB) | payer MEDICAID, SELFPAY ==
--- NOTE | 2023-12-17 09:19 | MHC.OFFVIS ---
Vital Signs 12/17/23 09:20 Height 5 ft 3 in Weight 229 lb 4.492 oz BMI 40.6 BP 146/86 H Blood Pressure Location Lt brachial Position Sitting Pulse 78 Intake Visit Reasons: S/p egd/colon Martin Intake Note: Patient returns in follow up s/p EGD/colonoscopy. CC: Patient reports oing well and denies having any new GI symptoms or concerns. 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 Required: No Accompanied by: Self / Same As Patient Allergies No Known Allergies [No Known Allergies*] Allergy (Verified 12/17/23 09:26) HPI HPI S/p egd/colon Martin: Details: Assessment & Plan (1) Tubular adenoma of colon: Comment: 2017 colonoscopy [facility] [place], 2020 scope equals 2 TA is repeat 3 years Code(s): D12.6 - Benign neoplasm of colon, unspecified (2) Jose's esophagus determined by biopsy: Comment: Will rescope in 2023 when he is due for colonoscopy rescope Code(s): K22.70 - Jose's esophagus without dysplasia (3) Pre-op examination: Code(s): Z01.818 - Encounter for other preprocedural examination (4) MATEO on CPAP: Comment: Pt returned CPAP, does not want to retry. Code(s): G47.33 - Obstructive sleep apnea (adult) (pediatric); Z99.89 - Dependence on other enabling machines and devices (5) Seizure disorder: Code(s): G40.909 - Epilepsy, unspecified, not intractable, without status epilepticus (6) GERD (gastroesophageal reflux disease): Code(s): K21.9 - Gastro-esophageal reflux disease without esophagitis (7) Abdominal bloating: Code(s): R14.0 - Abdominal distension (gaseous) (8) Chronic idiopathic constipation: Code(s): K59.04 - Chronic idiopathic constipation Plan [place] #[place] He continues to do well on his Linzess, Colace, bisacodyl, pantoprazole 40 mg twice a day, and simethicone. He is due for Barretts screening and a colonoscopy screening so we will get this scheduled. He has obstructive sleep apnea and no other breathing problems and denies any cardiac problems. There are no other problems with anesthesia or sedation. There are no infectious disease problems. He has a history of tubular adenoma and his last scope was in 2020 with a 3 year repeat needed because of the size polyps. Orders: Orders EGD/[place] Combo - GI Use Only 06/28/23 D12.6 - Benign neoplasm of colon, unspecified, K22.70 - Jose's esophagus without dysplasia EGD/COLONOSCOPY 12/03/23 Findings: Terminal Ileum-not intubated Cecum: diminutive polyp removed with cold forceps Ascending Colon: normal Transverse Colon - x 1 sessile polyp 6-8 mm removed with cold forceps Descending Colon: x 2 sessile polyps 10 mm removed with cold snare Sigmoid Colon: normal Rectum: Retroflexion with small internal hemorrhoids, grade I, 4-6 mm sessile polyp removed with cold forceps Anorectum - normal Impression and Post Procedure Diagnosis: Endoscopy Findings: esophagitis gastritis Colonoscopy Findings: polyps internal hemorrhoids Plan: Await Pathology results Repeat Colonoscopy in 3 years due to polyps and prep on left side or earlier if clinically indicated High fiber diet leaflet avoid straining at stool, epsom salts and sitz bath, anusol supps or cream cont with PPI--check compliance Received: 12/03/23 Diagnosis A. Stomach, biopsy: Gastric antral mucosa with minimal chronic inactive gastritis; negative for H pylori, intestinal metaplasia and dysplasia. B. Gastroesophageal junction, biopsy: Squamocolumnar mucosa with hyperplasia and mild chronic inflammation; negative for intestinal metaplasia and dysplasia. C. Colon, cecal polyp: Tubular adenoma; negative for high-grade dysplasia and carcinoma. D. Colon, transverse, polyp: Tubular adenoma; negative for high-grade dysplasia and carcinoma. E. Colon, descending, polyp: Tubular adenoma; negative for high-grade dysplasia and carcinoma. F. Colon, rectal polyp: Hyperplastic polyp. TODAY'S VISIT [place] #RECORD PRESS SUPERVISOR translates per pt request They are agreeable to a 3 year follow-up. The procedure was well tolerated. The results were explained and the patient is agreeable to the follow-up interval as stated. The bowel pattern has returned to normal. Education was provided to tell any 1st degree relatives about their findings to be sure that they are screened by age 45. Educated that they will be put on a recall list when it is time for their repeat scope but should they move out of state or away from the hospital they will need to remember along with their primary to repeat the procedure in a timely fashion to avoid any adverse complications. He continues to do well on his Linzess, Colace, bisacodyl, pantoprazole 40 mg twice a day, and simethicone. However, with further discussion he says that he still straining it stooling and sometimes spends as much as an hour on the toilet. He is only on 72 micro g of Linzess so I suggest we try increasing it to see if we can make this easier for him. Return office visit in 4 weeks to evaluate his response to the increased dose of Linzess. [facility] Medical History Hypersomnia Snoring Gait disorder MATEO on CPAP Arthritis Lower extremity edema Depression Seizure disorder GERD (gastroesophageal reflux disease) Chronic idiopathic constipation Surgical History History of intestinal surgery History of esophagogastroduodenoscopy (EGD) (~2017) Hx of colonoscopy (~2017) Family History Mother Heart attack Social History Alcohol intake: never Patient Tobacco Use Status: Never used Tobacco Review of Systems Const Denies fatigue, Denies fever(s), Denies night sweats, Denies poor appetite and Denies weight loss Eyes Details: glasses Reports requires corrective lenses ENT Reports Normal hearing present, Denies dental pain, Denies dysphagia, Denies hearing loss, Denies mouth pain, Denies odynophagia, Denies throat swelling, Denies tongue swelling and Reports other (Dentition adequate) GI Details: Denies abdominal pain, Denies melena, Denies bloating, Denies hematochezia, Denies constipation, Denies GI cramping, Denies dysphagia, Denies excessive flatus, Denies early satiety, Denies heartburn, Denies diarrhea, Denies nausea, Denies odynophagia, Denies vomiting and Denies hematemesis Skin/Breast Denies pruritus, Denies lesions, Denies rash and Denies jaundice Neuro Reports Normal hearing present and Denies Abnormal speech present Endo Denies fatigue Aller/Immun Denies throat swelling and Denies tongue swelling Physical Exam Vital Signs: Last Vital Signs Pulse 78 12/17/23 09:20 BP 146/86 H 12/17/23 09:20 BMI result Body Mass Index 40.6 Const General: cooperative, no acute distress, well developed and well groomed Nutritional Appearance: well nourished, obese and overweight Orientation/consciousness: oriented to person, oriented to place and oriented to time Limitations: language barrier and ambulation with walker HEENT Head: Yes normocephalic and Yes atraumatic Eyes General: appearance normal, both eyes and all related structures Pupils: Equal, round and reactive pupils present Neck Neck: Yes normal visual inspection and Yes no lymphadenopathy Thyroid: Thyroid normal Resp Effort & Inspection: normal respiratory effort and able to speak in complete sentences Auscultation: clear to auscultation bilaterally Cardio Rate: regular rate Rhythm: regular rhythm Heart sounds: Normal, physiologic split S2 sound present Peripheral pulses: radial pulses present and posterior tibial pulses present GI Inspection: No distended and No Abdominal panniculus present Palpation (GI): Soft to palpation, nontender, no guarding, not rigid, No hepatosplenomegaly present and Hepatosplenomegaly present Percussion: Yes normal to percussion Auscultation: normal bowel sounds Rectal Exam - Male: Yes deferred Skin General skin exam: no rashes or lesions noted, turgor normal, skin not dry, no jaundice, No spider nevi and no striae Rashes: no rashes Nails: normal Neuro General: oriented to person, oriented to place and oriented to time Cranial nerves: Yes Equal, round and reactive pupils present and Yes Normal hearing present Speech: No Abnormal speech present Extrem General: Yes normal to inspection, No clubbing, No cyanosis and No edema Psych Thought process: Normal thought process present and not confabulating Thought content: Normal thought content present Insight: Good insight present (Psych) Judgement: Good judgement present (Psych) Results Reviewed Results Reviewed: EGD/COLONOSCOPY 12/03/23 Findings: Terminal Ileum-not intubated Cecum: diminutive polyp removed with cold forceps Ascending Colon: normal Transverse Colon - x 1 sessile polyp 6-8 mm removed with cold forceps Descending Colon: x 2 sessile polyps 10 mm removed with cold snare Sigmoid Colon: normal Rectum: Retroflexion with small internal hemorrhoids, grade I, 4-6 mm sessile polyp removed with cold forceps Anorectum - normal Impression and Post Procedure Diagnosis: Endoscopy Findings: esophagitis gastritis Colonoscopy Findings: polyps internal hemorrhoids Plan: Await Pathology results Repeat Colonoscopy in 3 years due to polyps and prep on left side or earlier if clinically indicated High fiber diet leaflet avoid straining at stool, epsom salts and sitz bath, anusol supps or cream cont with PPI--check compliance Received: 12/03/23 Diagnosis A. Stomach, biopsy: Gastric antral mucosa with minimal chronic inactive gastritis; negative for H pylori, intestinal metaplasia and dysplasia. B. Gastroesophageal junction, biopsy: Squamocolumnar mucosa with hyperplasia and mild chronic inflammation; negative for intestinal metaplasia and dysplasia. C. Colon, cecal polyp: Tubular adenoma; negative for high-grade dysplasia and carcinoma. D. Colon, transverse, polyp: Tubular adenoma; negative for high-grade dysplasia and carcinoma. E. Colon, descending, polyp: Tubular adenoma; negative for high-grade dysplasia and carcinoma. F. Colon, rectal polyp: Hyperplastic polyp. Assessment & Plan Assessment & Plan (1) Chronic idiopathic constipation: Code(s): K59.04 - Chronic idiopathic constipation Category: Medical (2) Jose's esophagus determined by biopsy: Comment: No Barretts discovered on biopsy from 2023 scope Code(s): K22.70 - Jose's esophagus without dysplasia Category: Medical (3) GERD (gastroesophageal reflux disease): Code(s): K21.9 - Gastro-esophageal reflux disease without esophagitis Category: Medical (4) Abdominal bloating: Code(s): R14.0 - Abdominal distension (gaseous) Category: Medical (5) Tubular adenoma of colon: Comment: 2023 scope= 3 TA is repeat in 3 years; 2017 colonoscopy [facility], 2020 scope equals 2 TA is repeat 3 years Code(s): D12.6 - Benign neoplasm of colon, unspecified Category: Medical Plan [place] #RECORD PRESS SUPERVISOR translates per pt request They are agreeable to a 3 year follow-up. The procedure was well tolerated. The results were explained and the patient is agreeable to the follow-up interval as stated. The bowel pattern has returned to normal. Education was provided to tell any 1st degree relatives about their findings to be sure that they are screened by age 45. Educated that they will be put on a recall list when it is time for their repeat scope but should they move out of state or away from the hospital they will need to remember along with their primary to repeat the procedure in a timely fashion to avoid any adverse complications. He continues to do well on his Linzess, Colace, bisacodyl, pantoprazole 40 mg twice a day, and simethicone. However, with further discussion he says that he still straining it stooling and sometimes spends as much as an hour on the toilet. He is only on 72 micro g of Linzess so I suggest we try increasing it to see if we can make this easier for him. Return office visit in 4 weeks to evaluate his response to the increased dose of Linzess. Medications: New linaclotide (Linzess) 145 mcg PO QAM 30 caps 6RF K59.04 - Chronic idiopathic constipation Refilled pantoprazole (Protonix) 40 mg PO BID 60 tabs 6RF K22.70 - Jose's esophagus without dysplasia simethicone 180 mg PO TID 90 caps 6RF R14.0 - Abdominal distension (gaseous) bisacodyl 10 mg (2 x 5 mg) PO BEDTIME PRN 60 tabs 2RF for constipation K59.04 - Chronic idiopathic constipation On Hold linaclotide (Linzess) Hold Comment: Doctor's Order 72 mcg PO QAM 30 caps 6RF K59.04 - Chronic idiopathic constipation Coding Level of Care Code Est Pt Level 4 (38563) Diagnoses Chronic idiopathic constipation K59.04 Jose's esophagus determined by biopsy K22.70 GERD (gastroesophageal reflux disease) K21.9 Abdominal bloating R14.0 Tubular adenoma of colon D12.6 Time Spent (min) 33
[2023-12-17 09:20] VITALS: BP 146/86; PULSE 78; BMI 40.6
== END 2023-12-17 09:41 | disposition home or self-care (01) ==
PROVIDERS: PCP Student in an Organized Health Care Education/Training Program; Visit Provider Nurse Practitioner
DX: K59.04 Chronic idiopathic constipation (principal); K22.70 Barrett's esophagus without dysplasia; K21.9 Gastro-esophageal reflux disease without esophagitis; R14.0 Abdominal distension (gaseous); D12.6 Benign neoplasm of colon, unspecified
CPT/HCPCS: 99214

== ENCOUNTER → 2023-12-17 09:18 | Outpatient (BNVA) | payer MEDICAID, SELFPAY | PROVIDERS: PCP Student in an Organized Health Care Education/Training Program; Visit Provider Nurse Practitioner | DX: D12.0 Benign neoplasm of cecum (principal); D12.3 Benign neoplasm of transverse colon; D12.4 Benign neoplasm of descending colon; K62.1 Rectal polyp; K64.8 Other hemorrhoids; K20.90 Esophagitis, unspecified without bleeding; K29.70 Gastritis, unspecified, without bleeding; K59.04 Chronic idiopathic constipation; K22.70 Barrett's esophagus without dysplasia; K21.9 Gastro-esophageal reflux disease without esophagitis; R14.0 Abdominal distension (gaseous); Z79.899 Other long term (current) drug therapy; Z98.890 Other specified postprocedural states | CPT/HCPCS: 99212 ==

== ENCOUNTER → 2024-01-09 10:35 | Outpatient (BNVA) | payer MEDICAID, SELFPAY | PROVIDERS: PCP Student in an Organized Health Care Education/Training Program; Visit Provider Physician Assistant ==

== ENCOUNTER 2024-01-13 09:32 | Outpatient (AMB) | payer MEDICAID, SELFPAY ==
--- NOTE | 2024-01-13 09:55 | A.SPINEOV_ITS ---
Intake Visit Reasons: EMG F/u Intake Note: Mr. Rae is here today to F/u on EMG. Consumer Insights Intern Required: Yes Consumer Insights Intern Name: Tablet Allergies No Known Allergies [No Known Allergies*] Allergy (Verified 01/14/24 10:04) Assessment & Plan Assessment & Plan (1) Spondylolisthesis: Code(s): M43.10 - Spondylolisthesis, site unspecified Category: Medical Plan Sravan comes in today for a subsequent follow-up visit. To recap he was previously seen in our office for low back pain and pains in his bilateral lower extremities. He currently ambulates with great difficulty with assistance of a walker. He reported that standing walking and lying flat exacerbate her pain, and that sitting and bracing himself with his hands help to alleviate his pain. Most notably from his previous visit he has 0/5 strength with left-sided plantar flexion, dorsiflexion, EHL, and has complete loss of sensation of left- sided toes, and the bottom of left-sided foot. We evaluated him in clinic and he was sent for an EMG study to determine the extent of which his peripheral neuropathy is contributing to his bilateral lower leg weakness and pain. Upon review of his electromyogram appears that Sravan has severe bilateral peripheral neuropathy, which is likely the cause for the hypoesthesia and functionality in his bilateral lower extremities. We discussed these results and he was informed that I will be very difficult for us to adequately determine to what extent he will have resolution of his leg symptoms as a result of surgery. I did discuss quite extensively that is low back pain could be addressed via a fixation of his listhesis at L5-S1. After some di scussion with his daughter, he reports he would like to discuss a fusion surgery further. I would like to see Sravan back in the office on a day in which I am here with Dr. Shepherd to discuss potential surgical interventions. He has a fairly complex individual with longstanding peripheral neuropathy confounding his symptoms. Total amount of time spent in this visit was 35 minutes in discussion of symptoms, MRI imaging results and subsequent plan of care Varinder Shepherd MD,PhD [facility] Coding Level of Care Code Est Pt Level 4 (43391) Diagnoses Spondylolisthesis M43.10
== END 2024-01-13 10:18 | disposition home or self-care (01) ==
PROVIDERS: PCP Student in an Organized Health Care Education/Training Program; Visit Provider Physician Assistant
DX: M43.10 Spondylolisthesis, site unspecified (principal)
CPT/HCPCS: 99214

== ENCOUNTER → 2024-01-13 09:32 | Outpatient (BNVA) | payer MEDICAID, SELFPAY | PROVIDERS: PCP Student in an Organized Health Care Education/Training Program; Visit Provider Physician Assistant | DX: M43.10 Spondylolisthesis, site unspecified (principal) | CPT/HCPCS: 99212 ==

== ENCOUNTER 2024-01-14 09:52 | Outpatient (AMB) | payer MEDICAID, SELFPAY ==
--- NOTE | 2024-01-14 09:53 | A.OFFVIS_ITS ---
Vital Signs 01/14/24 09:59 Height 5 ft 3 in BMI Reason not done Patient refused/unable BP 151/85 H Blood Pressure Location Lt brachial Position Sitting Pulse 85 Comment Unable to stand on scale today d/t imbalance. Intake Visit Reasons: 4 week follow up Intake Note: Sravan returns to in office visit today in 4 weeks follow up constipation. CC: Patient states that the Linzess is helping him with constipation. Forming Press Operator Required: Yes Forming Press Operator Name: AIRCRAFT MECHANIC ARMAMENT Accompanied by: continuing education specialist Allergies No Known Allergies [No Known Allergies*] Allergy (Verified 01/14/24 10:04) HPI HPI 4 week follow up: Details: Assessment & Plan (1) Chronic idiopathic constipation: Code(s): K59.04 - Chronic idiopathic constipation Category: Medical (2) Jose's esophagus determined by biopsy: Comment: No Barretts discovered on biopsy from 2023 scope Code(s): K22.70 - Jose's esophagus without dysplasia Category: Medical (3) GERD (gastroesophageal reflux disease): Code(s): K21.9 - Gastro-esophageal reflux disease without esophagitis Category: Medical (4) Abdominal bloating: Code(s): R14.0 - Abdominal distension (gaseous) Category: Medical (5) Tubular adenoma of colon: Comment: 2023 scope= 3 TA is repeat in 3 years; 2017 colonoscopy [facility], 2020 scope equals 2 TA is repeat 3 years Code(s): D12.6 - Benign neoplasm of colon, unspecified Category: Medical Plan TONGAN #AIRCRAFT MECHANIC ARMAMENT translates per pt request They are agreeable to a 3 year follow-up. The procedure was well tolerated. The results were explained and the patient is agreeable to the follow-up interval as stated. The bowel pattern has returned to normal. Education was provided to tell any 1st degree relatives about their findings to be sure that they are screened by age 45. Educated that they will be put on a recall list when it is time for their repeat scope but should they move out of state or away from the hospital they will need to remember along with their primary to repeat the procedure in a timely fashion to avoid any adverse complications. He continues to do well on his Linzess, Colace, bisacodyl, pantoprazole 40 mg twice a day, and simethicone. However, with further discussion he says that he still straining it stooling and sometimes spends as much as an hour on the toilet. He is only on 72 micro g of Linzess so I suggest we try increasing it to see if we can make this easier for him. Return office visit in 4 weeks to evaluate his response to the increased dose of Linzess. Medications: New linaclotide (Linzess) 145 mcg PO QAM 30 caps 6RF K59.04 - Chronic idiopathic constipation Refilled pantoprazole (Protonix) 40 mg PO BID 60 tabs 6RF K22.70 - Jose's esophagus without dysplasia simethicone 180 mg PO TID 90 caps 6RF R14.0 - Abdominal distension (gaseous) bisacodyl 10 mg (2 x 5 mg) PO BEDTIME PRN 60 tabs 2RF for constipation K59.04 - Chronic idiopathic constipation On Hold linaclotide (Linzess) Hold Comment: Doctor's Order 72 mcg PO QAM 30 caps 6RF K59.04 - Chronic idiopathic constipation TODAY'S VISIT TONGAN #female family member translates per pt request He feels that is 145 micro g dose of the Linzess along with the bisacodyl is controlling his bowels well. He also continues on his pantoprazole and simethicone. He does not feel like there is any need to adjust any of his therapies at this time. His balance and walking is getting worse - he will be having back surgery soon and he hopes this will fix it. He is now satisfied with his GI regimen. Return office visit in 6 months [facility] Medical History Hypersomnia Snoring Gait disorder MATEO on CPAP Arthritis Lower extremity edema Depression Seizure disorder GERD (gastroesophageal reflux disease) Chronic idiopathic constipation Surgical History History of intestinal surgery History of esophagogastroduodenoscopy (EGD) (~2017) Hx of colonoscopy (~2017) Family History Mother Heart attack Social History Alcohol intake: never Patient Tobacco Use Status: Never used Tobacco Review of Systems Const Denies fatigue, Denies fever(s), Denies night sweats, Denies poor appetite, Reports weakness and Denies weight loss Eyes Details: glasses Reports requires corrective lenses ENT Reports Normal hearing present, Denies dental pain, Denies dysphagia, Denies hearing loss, Denies mouth pain, Denies odynophagia, Reports disequilibrium, Denies throat swelling, Denies tongue swelling and Reports other (Dentition adequate) Card Reports no additional complaints Resp Reports no additional complaints GI Details: Denies abdominal pain, Denies melena, Reports bloating, Denies hematochezia, Reports constipation, Denies GI cramping, Denies dysphagia, Denies excessive flatus, Denies early satiety, Reports heartburn, Denies diarrhea, Denies nausea, Denies odynophagia, Denies vomiting and Denies hematemesis Musc Reports abnormal gait and Reports back pain Skin/Breast Denies pruritus, Denies lesions, Denies rash and Denies jaundice Neuro Reports Normal hearing present, Denies Abnormal speech present, Reports abnormal gait, Reports paresthesias, Reports disequilibrium and Reports weakness Endo Denies fatigue Aller/Immun Denies throat swelling and Denies tongue swelling Physical Exam Vital Signs: Last Vital Signs Pulse 85 01/14/24 09:59 BP 151/85 H 01/14/24 09:59 Const General: cooperative, no acute distress, well developed and well groomed Nutritional Appearance: well nourished and obese Orientation/consciousness: oriented to person, oriented to place and oriented to time Limitations: language barrier and ambulation with walker HEENT Head: Yes normocephalic and Yes atraumatic Eyes General: appearance normal, both eyes and all related structures Pupils: Equal, round and reactive pupils present Neck Neck: Yes normal visual inspection and Yes no lymphadenopathy Thyroid: Thyroid normal Resp Effort & Inspection: normal respiratory effort and able to speak in complete sentences Auscultation: clear to auscultation bilaterally Cardio Rate: regular rate Rhythm: regular rhythm Heart sounds: Normal, physiologic split S2 sound present Peripheral pulses: radial pulses present and posterior tibial pulses present GI Inspection: No distended, Yes Abdominal panniculus present and Yes obesity Palpation (GI): Soft to palpation, nontender, no guarding, not rigid and No hepatosplenomegaly present Percussion: Yes normal to percussion Auscultation: normal bowel sounds Rectal Exam - Male: Yes deferred Skin General skin exam: no rashes or lesions noted, turgor normal, skin not dry, no jaundice, No spider nevi and no striae Rashes: no rashes Nails: normal Neuro General: oriented to person, oriented to place and oriented to time Cranial nerves: Yes Equal, round and reactive pupils present and Yes Normal hearing present Speech: No Abnormal speech present Extrem General: Yes normal to inspection, No clubbing, No cyanosis and No edema Psych Appearance: grossly normal and well kempt Mental Status: mental status grossly normal Speech and movement: Normal speech and movement present Affect: normal affect Attitude: cooperative Thought process: Normal thought process present and not confabulating Thought content: Normal thought content present Insight: Limited insight present (Psych) Judgement: Limited judgement present (Psych) Assessment & Plan Assessment & Plan (1) GERD (gastroesophageal reflux disease): Code(s): K21.9 - Gastro-esophageal reflux disease without esophagitis Category: Medical (2) Chronic idiopathic constipation: Code(s): K59.04 - Chronic idiopathic constipation Category: Medical (3) Jose's esophagus determined by biopsy: Comment: No Barretts discovered on biopsy from 2023 scope Code(s): K22.70 - Jose's esophagus without dysplasia Category: Medical (4) Abdominal bloating: Code(s): R14.0 - Abdominal distension (gaseous) Category: Medical Plan TONGAN #female family member translates per pt request He feels that is 145 micro g dose of the Linzess along with the bisacodyl is controlling his bowels well. He also continues on his pantoprazole and simethicone. He does not feel like there is any need to adjust any of his the rapies at this time. His balance and walking is getting worse - he will be having back surgery soon and he hopes this will fix it. He is now satisfied with his GI regimen. Return office visit in 6 months Coding Level of Care Code Est Pt Level 3 (57851) Diagnoses GERD (gastroesophageal reflux disease) K21.9 Chronic idiopathic constipation K59.04 Jose's esophagus determined by biopsy K22.70 Abdominal bloating R14.0
[2024-01-14 09:59] VITALS: BP 151/85; PULSE 85
== END 2024-01-14 10:19 | disposition home or self-care (01) ==
PROVIDERS: PCP Student in an Organized Health Care Education/Training Program; Visit Provider Nurse Practitioner
DX: K21.9 Gastro-esophageal reflux disease without esophagitis (principal); K59.04 Chronic idiopathic constipation; K22.70 Barrett's esophagus without dysplasia; R14.0 Abdominal distension (gaseous)
CPT/HCPCS: 99213

== ENCOUNTER → 2024-01-14 09:52 | Outpatient (BNVA) | payer MEDICAID, SELFPAY | PROVIDERS: PCP Student in an Organized Health Care Education/Training Program; Visit Provider Nurse Practitioner | DX: K21.9 Gastro-esophageal reflux disease without esophagitis (principal); K59.04 Chronic idiopathic constipation; R14.0 Abdominal distension (gaseous); Z79.899 Other long term (current) drug therapy | CPT/HCPCS: 99212 ==

== ENCOUNTER 2024-02-21 13:21 | Outpatient (AMB) | payer MEDICAID, SELFPAY ==
--- NOTE | 2024-02-21 14:05 | HO.SPINEOV ---
Intake Visit Reasons: discuss sx Intake Note: Mr. Rae is here today to discuss surgical options. Community Development Planner Required: No Allergies No Known Allergies [No Known Allergies*] Allergy (Verified 01/14/24 10:04) Assessment & Plan Assessment & Plan (1) Disc degeneration, lumbar: Code(s): M51.36 - Other intervertebral disc degeneration, lumbar region Category: Medical Plan Dear colleague, On February 21, 2024 I saw Sravan Rae. As you know, he has a Azul neuropathy causing severe weakness and numbness of bilateral legs with bilateral drop foot and back pain. I reviewed his MRI imaging in detail that shows mild L5-S1 degenerative disc disease with no Modic changes. A minimal slip does not move on flexion-extension x-rays. I explained to the patient that a spinal fusion would not address the bilateral leg symptoms. The results on the back pain are very unpredictable. I favored no surgery for this patient as I do not think his back pain is going to respond to a lumbar fusion. I offered him referral to pain management to try and so-called intracept procedure for back pain. He will think about this option. I spent 35 minutes in this consult to review imaging and to discuss my findings and advise Thank you for the referral. Maximo Shepherd MD, PhD Spine Fellowship Trained Neurosurgeon Director, [facility] [place] Coding Level of Care Code Est Pt Level 4 (09780) Diagnoses Disc degeneration, lumbar M51.36
== END 2024-02-21 14:44 | disposition home or self-care (01) ==
PROVIDERS: PCP Student in an Organized Health Care Education/Training Program; Visit Provider Neurological Surgery
DX: M51.36 Other intervertebral disc degeneration, lumbar region (principal)
CPT/HCPCS: 99214

== ENCOUNTER → 2024-02-21 13:21 | Outpatient (BNVA) | payer MEDICAID, SELFPAY | PROVIDERS: PCP Student in an Organized Health Care Education/Training Program; Visit Provider Neurological Surgery | DX: M51.36 Other intervertebral disc degeneration, lumbar region (principal) | CPT/HCPCS: 99212 ==

== ENCOUNTER 2024-04-23 09:26 | Outpatient (AMB) | payer MEDICAID, SELFPAY ==
--- NOTE | 2024-04-23 09:32 | MHC.OFFVIS ---
Vital Signs 04/23/24 09:33 Height 5 ft 3 in Weight 238 lb 8 oz BMI 42.2 BP 122/72 Blood Pressure Location Rt brachial Position Sitting Respiration 16 Pulse 76 Pulse Source Palpation Intake Visit Reasons: 6 mo f/u - Unsteady gait - LVM Intake Note: Pt presents to the office for a 10 month follow up for gait disorder. Director Of Broadcast Required: Yes Director Of Broadcast Services: Director Of Broadcast Present Director Of Broadcast Name: Nataliya Fong CMA Allergies No Known Allergies [No Known Allergies*] Allergy (Verified 04/23/24 09:33) Medication List - Last Reconciled 04/23/24 by Kasie Zhou MD aripiprazole 10 mg PO DAILY bisacodyl 10 mg (2 x 5 mg) PO BEDTIME PRN cyanocobalamin (vitamin B-12) (Vitamin B-12) 1,000 mcg PO QAM docusate sodium 100 mg PO DAILY duloxetine 60 mg PO QAM ergocalciferol (vitamin D2) (Vitamin D2) 1,250 mcg PO QWEEK esomeprazole magnesium 20 mg PO DAILY folic acid 0.4 mg PO QPM furosemide 20 mg PO BID linaclotide (Linzess) 145 mcg PO QAM linaclotide (Linzess) 72 mcg PO QAM melatonin 3 mg PO QAM mirtazapine 15 mg PO BEDTIME pantoprazole (Protonix) 40 mg PO BID phenobarbital 64.8 mg PO TID 90 days phenytoin sodium extended (Dilantin Extended) 1 cap PO TID simethicone 180 mg PO TID simvastatin 10 mg PO BEDTIME tramadol 50 mg PO QAM trazodone 200 mg PO BEDTIME PRN HPI Comments Details: 63 y/o male patient presents for follow up of seizure disorder and gait problem. He was restless with CPAP, could not sleep well, so he returned CPAP. Pt does not want to use CPAP. He was diagnosed with Spondylolisthesis, lumbosacral region but not a candidate for surgery He has h/o seizures since childhood, secondary generalized tonic clonic seizures. He is on phenobarb 64.8 mg tid, dilantin 100mg tid. His last seizure was 13 years ago. He is complaint with medications. No seizures reported. [facility] Medical History Hypersomnia Snoring Gait disorder MATEO on CPAP Arthritis Lower extremity edema Depression Seizure disorder GERD (gastroesophageal reflux disease) Chronic idiopathic constipation Surgical History History of intestinal surgery History of esophagogastroduodenoscopy (EGD) (~2017) Hx of colonoscopy (~2017) Family History Mother Heart attack Social History Alcohol intake: never Patient Tobacco Use Status: Never used Tobacco Physical Exam Vital Signs: Last Vital Signs Pulse 76 04/23/24 09:33 Resp 16 04/23/24 09:33 BP 122/72 04/23/24 09:33 BMI result Body Mass Index 42.2 Const General: cooperative, comfortable and no acute distress Nutritional Appearance: obese Orientation/consciousness: patient oriented x3 Limitations: physical limitations and ambulation with walker HEENT Head: Yes normal to inspection Eyes Pupils: Equal, round and reactive pupils present Neuro Other: Gait- with walker , high steppage gait slow General: patient oriented x3, tone normal and moves all extremities Cranial nerves: Yes Facial sensation intact/muscles of mastication intact, Yes Equal, round and reactive pupils present, Yes Bilaterally intact EOM present, Yes Nystagmus not present, Yes Normal facial strength present, Yes Midline tongue present and Yes Ability to bilaterally elevate shoulders present Cognition (Neuro): normal cognition Motor exam (neuro): Other motor observations present (weakness in LE) Deep tendon reflexes (DTR's): Right triceps reflex intensity grade: 0, Left triceps reflex intensity grade: 0, Rt Biceps (C5, C6): 0, Left biceps reflex intensity grade: 0, Right brachioradialis reflex intensity grade: 0, Left brachioradialis reflex intensity grade: 0, Right patellar reflex intensity grade: 0 and Left patellar reflex intensity grade: 0 Coordination: [id number] test normal Assessment & Plan Assessment & Plan (1) Gait disorder: Comment: he had a detailed evaluation with Dr. Kapoor Code(s): R26.9 - Unspecified abnormalities of gait and mobility Category: Medical (2) Seizure disorder: Code(s): G40.909 - Epilepsy, unspecified, not intractable, without status epilepticus Category: Medical (3) MATEO on CPAP: Comment: declined CPAP Code(s): G47.33 - Obstructive sleep apnea (adult) (pediatric); Z99.89 - Dependence on other enabling machines and devices Category: Medical Plan Advised patient to continue to take phenobarb 64.8mg tid and dilantin 100mg tid. PT for weakness in legs - declines EMG NCS LE Orders: Orders NE nerve conduction velocity Today R20.0 - Anesthesia of skin, R20.2 - Paresthesia of skin NE electromyogram (EMG) Today R20.0 - Anesthesia of skin, R20.2 - Paresthesia of skin Medications: Changed From phenytoin sodium extended (Dilantin Extended) 1 cap PO TID To phenytoin sodium extended (Dilantin Extended) 1 cap orally 3 times a day; 90 caps 6RF Refilled phenobarbital 64.8 mg PO TID 90 days 270 tabs 5RF Coding Level of Care Code Est Pt Level 4 (02000) Diagnoses Gait disorder R26.9 Seizure disorder G40.909 MATEO on CPAP G47.33; Z99.89
[2024-04-23 09:33] VITALS: BP 122/72; PULSE 76; RESP 16; BMI 42.2
== END 2024-04-23 09:57 | disposition home or self-care (01) ==
PROVIDERS: Absent Provider Psychiatry & Neurology Neurology; PCP Student in an Organized Health Care Education/Training Program; Visit Provider Psychiatry & Neurology Neurology
DX: R26.9 Unspecified abnormalities of gait and mobility (principal); G40.909 Epilepsy, unspecified, not intractable, without status epilepticus; G47.33 Obstructive sleep apnea (adult) (pediatric); Z99.89 Dependence on other enabling machines and devices
CPT/HCPCS: 99214

== ENCOUNTER → 2024-04-23 09:26 | Outpatient (BNVA) | payer MEDICAID, SELFPAY | PROVIDERS: Absent Provider Psychiatry & Neurology Neurology; PCP Student in an Organized Health Care Education/Training Program; Visit Provider Psychiatry & Neurology Neurology | DX: R26.9 Unspecified abnormalities of gait and mobility (principal); G40.909 Epilepsy, unspecified, not intractable, without status epilepticus; G47.33 Obstructive sleep apnea (adult) (pediatric); Z99.89 Dependence on other enabling machines and devices; Z91.198 Patient's noncompliance with other medical treatment and regimen for other reason | CPT/HCPCS: 99212 ==

== ENCOUNTER 2024-06-10 09:09 | Outpatient (REF) | payer MEDICAID, SELFPAY ==
--- NOTE | 2024-06-10 10:26 | EMG_ITS ---
Chief complaint: Chronic back pain, chronic bilateral footdrop, left started 3 years ago. Question of neuropathy. Had nerve biopsy 3 years ago but results not known to patient. NCS/EMG done by Dr. Dale on 11/26/23 reviewed: No responses from any motor or sensory nerves tested. But needle EMG looked within normal. Reason for referral: Evaluate for neuropathy Referred by: Dr. Zhou Procedure done: Bilateral lower extremity NCS/EMG Precautions and/or limitations: None The limb temperature was monitored continuously and remained between 32-36 degrees C during the performance of the NCS. Nerve Conduction Studies Anti Sensory Summary Table ?Stim Site NR Onset (ms) Norm Onset (ms) Peak (ms) Norm Peak (ms) O-P Amp (?V) Norm O-P Amp Site1 Site2 Delta-0 (ms) Dist (cm) Lawrence (m/s) Norm Lawrence (m/s) Right Radial Anti Sensory (Thumb) Forearm ? 1.8 2.3 <3.1 6.0 Forearm Thumb 1.8 0.0 Left Sural Anti Sensory (Lat Mall) Calf NR <4.0 >5.0 Calf Lat Mall 14.0 Right Sural Anti Sensory (Lat Mall) Calf NR <4.0 >5.0 Calf Lat Mall 14.0 Motor Summary Table ?Stim Site NR Onset (ms) Norm Onset (ms) O-P Amp (mV) Norm O-P Amp iAmp (mV) Amp (1st) (%) Site1 Site2 Delta-0 (ms) Dist (cm) Lawrence (m/s) Norm Lawrence (m/s) Right Peroneal Motor (Ext Dig Brev) Ankle NR <4.0 >2.5 Ankle Ext Dig Brev 0.0 B Fib NR B Fib Ankle 0.0 >40 Poplt NR Poplt B Fib 0.0 >40 Left Tibial Motor (Abd Castillo Brev) Ankle NR <5 >2.5 Ankle Abd Castillo Brev 0.0 Knee NR Knee Ankle 0.0 >40 Right Tibial Motor (Abd Castillo Brev) Ankle NR <5 >2.5 Ankle Abd Castillo Brev 0.0 Knee NR Knee Ankle 0.0 >40 EMG ?Side Muscle Nerve Root Ins Act Fibs Psw Amp Dur Poly Recrt Int Pat Comment Right BicepsFemS Sciatic L5-S1 Nml Nml Nml Nml Nml 1+ Nml Complete Right AbdHallucis MedPlantar S1-2 Nml Nml Nml Nml Nml 0 Nml Complete Right AntTibialis Dp Br Peron L4-5 Incr 1+ 1+ Nml Nml 0 Nml Complete Right PostTibialis Tibial L5, S1 Incr 1+ 1+ Nml Nml 0 Nml Complete Right MedGastroc Tibial S1-2 Incr 1+ 1+ Nml Nml 0 Nml Complete Right VastusMed Femoral L2-4 Nml Nml Nml Nml Nml 0 Nml Complete Left AbdHallucis MedPlantar S1-2 Incr 1+ 1+ Nml Nml 0 Nml Complete Left AntTibialis Dp Br Peron L4-5 Incr 1+ 1+ Nml Nml 0 Nml Complete Left PostTibialis Tibial L5, S1 Incr 1+ 1+ Nml Nml 0 Nml Complete Left MedGastroc Tibial S1-2 Incr 1+ 1+ Nml Nml 0 Nml Complete Left VastusMed Femoral L2-4 Nml Nml Nml Nml Nml 0 Nml Complete Paraspinal EMG ?Side Muscle Nerve Root Ins Act Fibs Psw Comment Right Lumbar Upper Rami Nml Nml Nml Right Lumbar Mid Rami Nml Nml Nml Right Lumbar Lower Rami Incr 1+ 1+ Left Lumbar Upper Rami Nml Nml Nml Left Lumbar Mid Rami Nml Nml Nml Left Lumbar Lower Rami Incr 1+ 1+ FINDINGS: Right peroneal nerve, bilateral tibial nerves, bilateral sural nerves showed no responses. Concentric needle EMG was performed in selected muscles of the bilateral lower extremity and lumbar paraspinals. Study revealed signs of electric abnormalities as shown in the table above. Chronic reinnervation and subacute denervation changes seen. Right posterior tibialis, anterior tibialis, medial gastrocnemius showed increased insertional activity, PSWs and fibrillations. Left AH, posterior tibialis, anterior tibialis, medial gastrocnemius showed increased insertional activity, PSWs and fibrillations. PSWs were smaller on the left side compared to the right. Right biceps short head showed polyphasic motor units. Bilateral lower lumbar paraspinals showed increased insertional activity, PSWs and fibrillations. Question presence of polyphasic motor units. IMPRESSION: 1. This is an abnormal study. 2. There is electrodiagnostic evidence for chronic bilateral L5-S1 radiculopathy. 3. Absent bilateral sural sensory nerves still raise possibility of peripheral neuropathy. However, it is not in a stocking-glove distribution because right radial sensory nerve on right hand is within normal. Thank you for your kind referral. Marlin Rick MD, NENA Board Certified, [place] Board of Physical Medicine and Rehabilitation (ABPMR) Board Certified, [place] Board of Electrodiagnostic Medicine (ABEM) CODIN [id number] x 2 MTDD
== END 2024-06-10 09:10 | disposition home or self-care (01) ==
LOC: HO.NEURO 09:09
PROVIDERS: PCP Student in an Organized Health Care Education/Training Program; Visit Provider Psychiatry & Neurology Neurology
DX: R20.0 Anesthesia of skin (principal); R20.2 Paresthesia of skin
CPT/HCPCS: 95886; 95909

== ENCOUNTER → 2024-06-10 10:26 | Outpatient (BNV) | payer MEDICAID, SELFPAY | PROVIDERS: PCP Student in an Organized Health Care Education/Training Program; Visit Provider Physical Medicine & Rehabilitation | DX: R20.0 Anesthesia of skin (principal); R20.2 Paresthesia of skin; M54.16 Radiculopathy, lumbar region | CPT/HCPCS: 95886; 95909 ==

== ENCOUNTER 2024-07-15 10:10 | Outpatient (AMB) | payer MEDICAID, SELFPAY ==
--- NOTE | 2024-07-15 10:15 | A.OFFVIS_ITS ---
Vital Signs 07/15/24 10:16 Height 5 ft 3 in Weight 228 lb 6.382 oz BMI 40.5 BP 153/81 H Blood Pressure Location Lt brachial Position Sitting Pulse 94 Intake Visit Reasons: 6 month follow up CIC, Gerd Intake Note: Sravan presents to in office 6 months follow up of CIC. CC: Patient reports heartburn and constipation sometimes but reports that the Linzess is helping. 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 Accompanied by: Self / Same As Patient Allergies No Known Allergies [No Known Allergies*] Allergy (Verified 07/15/24 10:27) HPI HPI 6 month follow up CIC, Gerd: Details: Assessment & Plan (1) GERD (gastroesophageal reflux disease): Code(s): K21.9 - Gastro-esophageal reflux disease without esophagitis Category: Medical (2) Chronic idiopathic constipation: Code(s): K59.04 - Chronic idiopathic constipation Category: Medical (3) Jose's esophagus determined by biopsy: Comment: No Barretts discovered on biopsy from 2023 scope Code(s): K22.70 - Jose's esophagus without dysplasia Category: Medical (4) Abdominal bloating: Code(s): R14.0 - Abdominal distension (gaseous) Category: Medical Plan MOLDOVAN #female family member translates per pt request He feels that is 145 micro g dose of the Linzess along with the bisacodyl is controlling his bowels well. He also continues on his pantoprazole and simethicone. He does not feel like there is any need to adjust any of his therapies at this time. His balance and walking is getting worse - he will be having back surgery soon and he hopes this will fix it. He is now satisfied with his GI regimen. 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 He feels that is 145 micro g dose of the Linzess along with the bisacodyl is controlling his bowels well. He also continues on his pantoprazole and simethicone. 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 [facility] Medical History Numbness and tingling of both legs Hypersomnia Snoring Gait disorder MATEO on CPAP Arthritis Lower extremity edema Depression Seizure disorder GERD (gastroesophageal reflux disease) Chronic idiopathic constipation Surgical History History of intestinal surgery History of esophagogastroduodenoscopy (EGD) (~2017) Hx of colonoscopy (~2017) Family History Mother Heart attack Social History Alcohol intake: never Patient Tobacco Use Status: Never used Tobacco Review of Systems Const Denies fatigue, Denies fever(s), Denies night sweats, Denies poor appetite and Denies weight loss Eyes Details: glasses Reports requires corrective lenses ENT Reports Normal hearing present, Denies dental pain, Denies dysphagia, Denies hearing loss, Denies mouth pain, Denies odynophagia, Reports disequilibrium, Denies throat swelling, Denies tongue swelling and Reports other (Dentition adequate) Card Reports no additional complaints Resp Reports no additional complaints GI Details: Denies abdominal pain, Denies melena, Denies bloating, Denies hematochezia, Reports constipation, Denies GI cramping, Denies dysphagia, Denies excessive flatus, Denies early satiety, Reports heartburn, Denies diarrhea, Denies nausea, Denies odynophagia, Denies vomiting and Denies hematemesis Musc Reports abnormal gait, Reports back pain, Reports arthralgias and Reports muscle weakness Skin/Breast Denies pruritus, Denies lesions, Denies rash and Denies jaundice Neuro Reports Normal hearing present, Denies Abnormal speech present, Reports abnormal gait, Reports paresthesias and Reports disequilibrium Endo Denies fatigue Aller/Immun Denies throat swelling and Denies tongue swelling Physical Exam Vital Signs: Last Vital Signs Pulse 94 07/15/24 10:16 BP 153/81 H 07/15/24 10:16 BMI result Body Mass Index 40.5 Const General: cooperative, no acute distress, well developed and well groomed Nutritional Appearance: well nourished and obese Orientation/consciousness: oriented to person, oriented to place and oriented to time Limitations: language barrier and ambulation with walker HEENT Head: Yes normocephalic and Yes atraumatic Eyes General: appearance normal, both eyes and all related structures Pupils: Equal, round and reactive pupils present Neck Neck: Yes normal visual inspection and Yes no lymphadenopathy Thyroid: Thyroid normal Resp Effort & Inspection: normal respiratory effort and able to speak in complete sentences Auscultation: clear to auscultation bilaterally Cardio Rate: regular rate Rhythm: regular rhythm Heart sounds: Normal, physiologic split S2 sound present Peripheral pulses: radial pulses present and posterior tibial pulses present GI Inspection: No distended, No Abdominal panniculus present and Yes obesity Palpation (GI): Soft to palpation, nontender, no guarding, not rigid and No hepatosplenomegaly present Percussion: Yes normal to percussion Auscultation: normal bowel sounds Rectal Exam - Male: Yes deferred Skin General skin exam: no rashes or lesions noted, turgor normal, skin not dry, no jaundice, No spider nevi and no striae Rashes: no rashes Nails: normal Neuro General: oriented to person, oriented to place and oriented to time Cranial nerves: Yes Equal, round and reactive pupils present and Yes Normal hearing present Speech: No Abnormal speech present Extrem General: Yes normal to inspection, No clubbing, No cyanosis and No edema Psych Appearance: grossly normal and well kempt Mental Status: mental status grossly normal Speech and movement: Normal speech and movement present Affect: normal affect Attitude: cooperative Thought process: Normal thought process present and not confabulating Thought content: Normal thought content present Insight: Fair insight present (Psych) Judgement: Fair judgement present (Psych) Assessment & Plan Assessment & Plan (1) GERD (gastroesophageal reflux disease): Code(s): K21.9 - Gastro-esophageal reflux disease without esophagitis Category: Medical (2) Chronic idiopathic constipation: Code(s): K59.04 - Chronic idiopathic constipation Category: Medical (3) Jose's esophagus determined by biopsy: Comment: No Barretts discovered on biopsy from 2023 scope Code(s): K22.70 - Jose's esophagus without dysplasia Category: Medical Plan [place] [employer] He is here today with Elidia who is 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 He feels that is 145 micro g dose of the Linzess along with the bisacodyl is controlling his bowels well. He also continues on his pantoprazole and simethicone. 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 Medications: Changed From bisacodyl 10 mg (2 x 5 mg) PO BEDTIME PRN 60 tabs 2RF for constipation K59.04 - Chronic idiopathic constipation To bisacodyl 10 mg (2 x 5 mg) PO BEDTIME PRN 60 tabs 2RF for constipation 90 days K59.04 - Chronic idiopathic constipation From linaclotide (Linzess) 145 mcg PO QAM 30 caps 6RF K59.04 - Chronic idiopathic constipation To linaclotide (Linzess) 145 mcg PO QAM 90 caps 1RF 90 days K59.04 - Chronic idiopathic constipation From pantoprazole (Protonix) 40 mg PO BID 60 tabs 6RF K22.70 - Jose's esophagus without dysplasia To pantoprazole (Protonix) 40 mg PO BID 180 tabs 1RF 90 days K22.70 - Jose's esophagus without dysplasia Refilled docusate sodium 100 mg PO DAILY 30 caps 11RF K59.04 - Chronic idiopathic constipation simethicone 180 mg PO TID 270 caps 1RF R14.0 - Abdominal distension (gaseous) Discontinued linaclotide (Linzess) Discontinued Reason: Doctor's Order 72 mcg PO QAM 30 caps 6RF K59.04 - Chronic idiopathic constipation Coding Level of Care Code Est Pt Level 3 (53500) Diagnoses GERD (gastroesophageal reflux disease) K21.9 Chronic idiopathic constipation K59.04 Jose's esophagus determined by biopsy K22.70
[2024-07-15 10:16] VITALS: BP 153/81; PULSE 94; BMI 40.5
== END 2024-07-15 10:59 | disposition home or self-care (01) ==
PROVIDERS: PCP Student in an Organized Health Care Education/Training Program; Visit Provider Nurse Practitioner
DX: K21.9 Gastro-esophageal reflux disease without esophagitis (principal); K59.04 Chronic idiopathic constipation; K22.70 Barrett's esophagus without dysplasia
CPT/HCPCS: 99213

== ENCOUNTER → 2024-07-15 10:10 | Outpatient (BNVA) | payer MEDICAID, SELFPAY | PROVIDERS: PCP Student in an Organized Health Care Education/Training Program; Visit Provider Nurse Practitioner | DX: K21.9 Gastro-esophageal reflux disease without esophagitis (principal); K59.04 Chronic idiopathic constipation; K22.70 Barrett's esophagus without dysplasia | CPT/HCPCS: 99212 ==

== ENCOUNTER 2024-07-17 10:57 | Outpatient (AMB) | payer MEDICAID, SELFPAY ==
--- NOTE | 2024-07-17 11:06 | MHC.OFFVIS ---
Intake Visit Reasons: Discuss results Allergies No Known Allergies [No Known Allergies*] Allergy (Verified 07/17/24 11:07) Medication List - Last Reconciled 07/17/24 by Kasie Zhou MD aripiprazole 10 mg PO DAILY bisacodyl 10 mg (2 x 5 mg) PO BEDTIME PRN 90 days cyanocobalamin (vitamin B-12) (Vitamin B-12) 1,000 mcg PO QAM docusate sodium 100 mg PO DAILY duloxetine 60 mg PO QAM ergocalciferol (vitamin D2) (Vitamin D2) 1,250 mcg PO QWEEK folic acid 0.4 mg PO QPM furosemide 20 mg PO BID gabapentin 300 mg PO BEDTIME linaclotide (Linzess) 145 mcg PO QAM 90 days melatonin 3 mg PO QAM mirtazapine 15 mg PO BEDTIME pantoprazole (Protonix) 40 mg PO BID 90 days phenobarbital 64.8 mg PO TID 90 days phenytoin sodium extended (Dilantin Extended) 1 cap orally 3 times a day; simethicone 180 mg PO TID simvastatin 10 mg PO BEDTIME tramadol 50 mg PO QAM trazodone 200 mg PO BEDTIME PRN HPI Comments Details: 64 y/o male patient presents for follow up of seizure disorder and gait problem. No seizures since 2010 He has trouble sleeping because of leg pain. EMG was c/w radiculopathy He was restless with CPAP, could not sleep well, so he returned CPAP. Pt does not want to use CPAP. He was diagnosed with Spondylolisthesis, lumbosacral region but not a candidate for surgery He has h/o seizures since childhood, secondary generalized tonic clonic seizures. He is on phenobarb 64.8 mg tid, dilantin 100mg tid. His last seizure was 13 years ago.2010 He is complaint with medications. No seizures reported. [facility] Medical History Obstructive sleep apnea Numbness and tingling of both legs Hypersomnia Snoring Gait disorder MATEO on CPAP Arthritis Lower extremity edema Depression Seizure disorder GERD (gastroesophageal reflux disease) Chronic idiopathic constipation Surgical History History of intestinal surgery History of esophagogastroduodenoscopy (EGD) (~2017) Hx of colonoscopy (~2017) Family History Mother Heart attack Social History Alcohol intake: never Patient Tobacco Use Status: Never used Tobacco Physical Exam Const General: cooperative, comfortable and no acute distress Nutritional Appearance: obese Orientation/consciousness: patient oriented x3 Limitations: physical limitations and ambulation with walker HEENT Head: Yes normal to inspection Eyes Pupils: Equal, round and reactive pupils present Neuro Other: Gait- with walker , high steppage gait slow General: patient oriented x3, tone normal and moves all extremities Cranial nerves: Yes Facial sensation intact/muscles of mastication intact, Yes Equal, round and reactive pupils present, Yes Bilaterally intact EOM present, Yes Nystagmus not present, Yes Normal facial strength present, Yes Midline tongue present and Yes Ability to bilaterally elevate shoulders present Cognition (Neuro): normal cognition Motor exam (neuro): Other motor observations present (weakness in LE) Coordination: [id number] test normal Assessment & Plan Assessment & Plan (1) Gait disorder: Comment: he had a detailed evaluation with Dr. Kapoor, multifactorial Code(s): R26.9 - Unspecified abnormalities of gait and mobility Category: Medical (2) Seizure disorder: Code(s): G40.909 - Epilepsy, unspecified, not intractable, without status epilepticus Category: Medical (3) Obstructive sleep apnea: Comment: declines CPAP Code(s): G47.33 - Obstructive sleep apnea (adult) (pediatric) Category: Medical Plan Advised patient to continue to take phenobarb 64.8mg tid and dilantin 100mg tid. PT for weakness in legs EMG NCS LE - results discussed Will trial gabapentin 300mg qhs for restless legs and muscle cramps Orders: Orders PT Evaluation and Treatment Today G89.4 - Chronic pain syndrome, M43.10 - Spondylolisthesis, site unspecified, M54.50 - Low back pain, unspecified, R20.0 - Anesthesia of skin, R20.2 - Paresthesia of skin Medications: New gabapentin 300 mg PO BEDTIME 30 caps 6RF Coding Level of Care Code Est Pt Level 4 (83612) Complex EM visit Add On G2211 Diagnoses Gait disorder R26.9 Seizure disorder G40.909 Obstructive sleep apnea G47.33
== END 2024-07-17 11:32 | disposition home or self-care (01) ==
PROVIDERS: PCP Student in an Organized Health Care Education/Training Program; Visit Provider Psychiatry & Neurology Neurology
DX: R26.9 Unspecified abnormalities of gait and mobility (principal); G40.909 Epilepsy, unspecified, not intractable, without status epilepticus; G47.33 Obstructive sleep apnea (adult) (pediatric)
CPT/HCPCS: 99214

== ENCOUNTER → 2024-07-17 10:57 | Outpatient (BNVA) | payer MEDICAID, SELFPAY | PROVIDERS: PCP Student in an Organized Health Care Education/Training Program; Visit Provider Psychiatry & Neurology Neurology | DX: G40.909 Epilepsy, unspecified, not intractable, without status epilepticus (principal); G47.33 Obstructive sleep apnea (adult) (pediatric); R26.9 Unspecified abnormalities of gait and mobility | CPT/HCPCS: 99212 ==

== ENCOUNTER 2024-09-09 10:00 | Outpatient (RCR) | payer MEDICAID, SELFPAY ==
--- NOTE | 2024-08-28 11:18 | MHC.PT.EP ---
[facility] [place] Office [place] Office [place] Office [address] Ksenia Rose [address] [phone] F: [phone] F: [phone] F: [phone] F: [phone] Physical Therapy Plan of Care Date of Evaluation: 08/28/24 Date of Surgery: n/a Diagnosis: low back pain Assessment: Patient is a 64 year old male presenting to PT with complaints of pain in his low back. Pt reports onset of pain began years ago due to insidious onset. He presents today with impairments in pain, lumbar ROM, hip strength, neurological sx, tenderness to palpation, posture. Pt's current occupation is none, with baseline physical activities including ambulating, standing, ADLs. 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 Clinical presentation today is most consistent with signs and sx associated with low back pain and pt will benefit from skilled PT 2 week x 4 weeks to address the following problems and impairments noted upon evaluation: pain, lumbar ROM, hip strength, neurological sx, tenderness to palpation, posture. These problems limit the patient with the following functional activities: ambulating, standing, ADLs. The prescribed treatment plan of care is medically necessary. 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 Pt was educated on HEP, role of PT, prognosis, POC. Frequency and Duration: The patient will be seen 2 x week x 4 weeks Short Term Goals: Pt will demonstrate improved pain at rest to < 6/10 in 2 weeks. Pt will demonstrate compliance with initial HEP at home in 1 week. Workforce Advisor Goals: Pt will demonstrate improved Agata score by 10% in 4 weeks for improved functional mobility. Pt will demonstrate ability to perform STS transfer with min to no pain in 4 weeks for improved tolerance with transfers. Pt will demonstrate ability to stand with less back pain when prepping meal in 4 weeks. Treatment Plan: Modalities to reduce pain, spasms and effusion. Manual therapy to restore motion and function. Therapeutic exercise to improve strength and flexibility. Neuromuscular re-education for posture and balance. Therapeutic activities to return to functional activities of daily living. Electronically signed by: Carol Balbuena, PT, DPT, ATC Please sign and return to therapist. Thank you for your referral.
--- NOTE | 2024-10-22 10:37 | MHC.PT.DC ---
[facility] [place] Office [place] Office [place] Office [address] [phone] F: [phone] F: [phone] F: [phone] F: [phone] Physical Therapy Discharge Report Diagnosis: low back pain Date of Surgery: n/a Date of Evaluation: 08/28/24 Date of Discharge: 10/22/24 Treatments to Date: 4 Cancellations to Date: 5 No Shows to Date: 0 Discharge Status: Recommend MD Follow-up Discharge Summary: Pt had been placed on 30 day hold as he was not feeling gains from PT. Pt has not called in 30 days and therefore to be d/c. Electronically signed by: Carol Balbuena PT, DPT, ATC Please sign and return to therapist. Thank you for your referral.
== END 2024-10-22 10:37 | disposition home or self-care (01) ==
LOC: HO.PTCHIC 10:00
PROVIDERS: PCP Student in an Organized Health Care Education/Training Program; Visit Provider Psychiatry & Neurology Neurology
DX: M43.10 Spondylolisthesis, site unspecified (principal); M54.50 Low back pain, unspecified; R20.0 Anesthesia of skin
CPT/HCPCS: 97110; 97162

== ENCOUNTER 2024-12-03 09:51 | Outpatient (AMB) | payer MEDICAID, SELFPAY ==
[2024-12-03 09:53] VITALS: PULSE 67; O2SAT 96; BMI 40.4
--- NOTE | 2024-12-03 09:53 | MHC.OFFVIS ---
Vital Signs 12/03/24 09:53 Height 5 ft 3 in Weight 228 lb BMI 40.4 Pulse 67 Pulse Source Pulse Oximeter Pulse Oximetry (%) 96 Oxygen Delivery Method Room Air Intake Visit Reasons: Unsteady gait-LVM Intake Note: Patient presents for follow up referred to PT notes scanned. med trial gabapentin Beauty Sales Advisor Required: Yes Beauty Sales Advisor Services: Beauty Sales Advisor Present Beauty Sales Advisor Name: tima jones Information Interpreted: non-clinical & clinical Allergies No Known Allergies [No Known Allergies*] Allergy (Verified 12/03/24 09:55) HPI Comments Details: 64 y/o male patient presents for follow up of seizure disorder and gait problem. No seizures since 2010 He has trouble sleeping because of leg pain. EMG was c/w radiculopathy He was restless with CPAP, could not sleep well, so he returned CPAP. Pt does not want to use CPAP. He did not notice reponse to gabapentin He stopped PT and does not exercise - says it did not help his balance and gait He was diagnosed with Spondylolisthesis, lumbosacral region but not a candidate for surgery He has h/o seizures since childhood, secondary generalized tonic clonic seizures. He is on phenobarb 64.8 mg tid, dilantin 100mg tid. His last seizure was 13 years ago.2010 He is complaint with medications. No seizures reported. [facility] Medical History Obstructive sleep apnea Numbness and tingling of both legs Hypersomnia Snoring Gait disorder MATEO on CPAP Arthritis Lower extremity edema Depression Seizure disorder GERD (gastroesophageal reflux disease) Chronic idiopathic constipation Surgical History History of intestinal surgery History of esophagogastroduodenoscopy (EGD) (~2017) Hx of colonoscopy (~2017) Family History Mother Heart attack Social History Alcohol intake: never Patient Tobacco Use Status: Never used Tobacco Physical Exam Vital Signs: Last Vital Signs Pulse 67 12/03/24 09:53 Pulse Ox 96 12/03/24 09:53 Oxygen Delivery Method Room Air 04/24/25 09:53 BMI result Body Mass Index 40.4 Const General: cooperative, comfortable and no acute distress Nutritional Appearance: obese Orientation/consciousness: patient oriented x3 Limitations: physical limitations and ambulation with walker HEENT Head: Yes normal to inspection Eyes Pupils: Equal, round and reactive pupils present Neuro Other: Gait- with walker , high steppage gait slow General: patient oriented x3, tone normal and moves all extremities Cranial nerves: Yes Facial sensation intact/muscles of mastication intact, Yes Equal, round and reactive pupils present, Yes Bilaterally intact EOM present, Yes Nystagmus not present, Yes Normal facial strength present, Yes Midline tongue present and Yes Ability to bilaterally elevate shoulders present Cognition (Neuro): normal cognition Motor exam (neuro): Other motor observations present (weakness in LE) Coordination: [id number]-id-[id number] test normal Assessment & Plan Assessment & Plan (1) Gait disorder: Comment: he had a detailed evaluation with Dr. Kapoor, multifactorial Code(s): R26.9 - Unspecified abnormalities of gait and mobility Category: Medical (2) Seizure disorder: Code(s): G40.909 - Epilepsy, unspecified, not intractable, without status epilepticus Category: Medical (3) Obstructive sleep apnea: Comment: declines CPAP Code(s): G47.33 - Obstructive sleep apnea (adult) (pediatric) Category: Medical Plan Advised patient to continue to take phenobarb 64.8mg tid and dilantin 100mg tid. Increase exercise EMG NCS LE - results discussed D/C Gabapentin 300mg qhs- patient reports no imrovement Medications: Refilled phenytoin sodium extended (Dilantin Extended) 1 cap orally 3 times a day; 90 caps 6RF phenobarbital 64.8 mg PO TID 90 days 270 tabs 5RF Coding Level of Care Code Est Pt Level 4 (86096) Complex EM visit Add On G2211 Diagnoses Gait disorder R26.9 Seizure disorder G40.909 Obstructive sleep apnea G47.33
--- OUTSIDE RECORDS SUMMARY | 2024-12-03 11:05 | XMS_ITS | Encounter Summary ---
Author Organization [employer] Address [address] [place] [address] [address] [place] [address] Care Team Providers Care Wrestling Coach Name Role Phone Giulia Armando MD Primary Care Provider [phone] Reason for Visit * Reason Comments Med Refill Encounter Details Date Type Department Care Team (Late st Contact Info) Description 07/18/2022 Refill [facility] MEDICINE [address] [place] [address] Giulia Armando MD [address] [place] [address] Social History Tobacco Use Types Packs/Day Years Used Date Smoking Tobacco: Never Assessed Sex and Gender Information Value Date Recorded Sex Assigned at Male 06/11/2022 10:28 AM EDT Legal Sex Male 10:28 AM EDT Gender Identity Male 06/11/2022 10:28 AM EDT Sexual Orientation Straight 06/11/2022 10 :28 AM EDT documented as of this encounter Plan of Treatment Upcoming Encounters Date Type Department Care Team (Late st Contact Info) Description 01/08/2025 10:45 AM EDT Office Visit [facility] MED & PEDS [address] [facility] [address] Giulia Armando MD [address] [place] [address] 01/20/2025 9:30 AM EDT Clinical Support [facility] PED[facility] [address] [place] [address] Lynda Woods, CRISTÓBAL [address] [place] [address] documented as of this encounter Visit Diagnoses Not on filedocumented in this encounter Care Teams Wrestling Coach Relationship Specialty Start Date End Date Giulia Armando MD [address] [place] [id number] PCP - General Family Medicine 03/26/18 Nay Sanches Branch ChiefOncology Transplant Network Manager 10/11/23 documented as of this encounter
--- OUTSIDE RECORDS SUMMARY | 2024-12-03 11:05 | XMS_ITS | Clinical Summary ---
Author Organization [employer] Address [address] [place] [address] 7t [place] [address] Care Team Providers Care Certified Endoscopy Technician Name Role Phone Giulia Armando MD Primary Care Provider [phone] Allergies No known active allergies Medications docusate sodium (Colace) 100 MG capsuleIndicati ons:Chronic idiopathic constipation TAKE 1 CAPSULE BY MOUTH 3 (THREE) TIMES A DAY 60 capsule 6 08/21/19 23 Active Bisacodyl EC 5 MG EC tabletIndicatio ns:Chronic idiopathic constipation TAKE 2 TABLETS BY MOUTH AT BEDTIME NEEDED FOR CONSTIPATION 60 tablet 2 09/26/19 23 Active Dilantin 100 MG capsule TAKE 1 CAPSULE BY MOUTH 3 (THREE) TIMES A DAY 90 capsule 11 10/11/19 24 Active esomeprazole (NexIUM) [address] capsuleIndicati ons:Gastroesoph ageal reflux disease without esophagitis TAKE 1 CAPSULE BY MOUTH ONCE DAILY 90 capsule 3 12/10/19 24 Active PHENobarbital 64.8 MG tabletIndicatio ns:Depressive disorder TAKE 1 TABLET BY MOUTH 3 (THREE) TIMES A DAY 90 tablet 3 04/02/20 24 Active traMADol (Ultram) 50 MG tabletIndicatio ns:Chronic bilateral low back pain without sciatica Take 1 tablet (50 mg) by mouth in the morning. 28 tablet 08/07/20 24 Active folic acid (Folvite) 400 MCG tabletIndicatio ns:Persistent depressive disorder TAKE 1 TABLET BY MOUTH ONCE DAILY 30 tablet 5 10/06/19 25 Active simvastatin (Zocor) 10 MG tabletIndicatio ns:Hypertension , unspecified type TAKE 1 TABLET BY MOUTH ONCE DAILY 30 tablet 5 10/06/19 25 Active furosemide (Lasix) 20 MG tabletIndicatio ns:Hypertension , unspecified type TAKE 1 TABLET BY MOUTH two (2) times a day 60 tablet 5 10/06/19 25 Active cyanocobalamin (Vitamin B-12) 1000 MCG tabletIndicatio ns:B12 deficiency TAKE 1 TABLET BY MOUTH IN THE MORNING 30 tablet 5 10/06/19 25 Active ARIPiprazole (Abilify) 10 MG tabletIndicatio ns:Persistent depressive disorder TAKE 1 TABLET BY MOUTH IN THE MORNING 30 tablet 5 10/06/19 25 Active traZODone (Desyrel) 100 MG tabletIndicatio ns:Depression, unspecified depression type TAKE 2 TABLETS BY MOUTH AT BEDTIME 60 tablet 11/28/19 25 Active DULoxetine (Cymbalta) [address] capsuleIndicati ons:Depression, unspecified depression type TAKE 2 CAPSULES BY MOUTH IN THE MORNING 60 capsule 8 12/03/19 25 Active ergocalciferol (Vitamin D2) 1.25 MG (90456 UT) capsuleIndicati ons:Vitamin D deficiency TAKE 1 CAPSULE BY MOUTH every Saturday 4 capsule 8 12/03/19 25 Active ergocalciferol (Vitamin D2) 1.25 MG (01272 UT) capsuleIndicati ons:Vitamin D deficiency TAKE 1 CAPSULE BY MOUTH every Saturday 4 capsule 8 03/04/20 24 2024 Discontinued traZODone (Desyrel) 100 MG tabletIndicatio ns:Depression, unspecified depression type TAKE 2 TABLETS BY MOUTH AT BEDTIME 60 tablet 8 03/04/20 24 2024 Discontinued DULoxetine (Cymbalta) [address] capsuleIndicati ons:Depression, unspecified depression type TAKE TWO CAPSULES BY MOUTH IN THE MORNING 60 capsule 8 03/04/20 24 2024 Discontinued Active Problems Problem Noted Date Diagnosed Date Edema of lower extremity 08/30/2021 Gastroesophageal reflux disease 04/29/2015 Seizure disorder 04/29/2015 Depressive disorder 04/29/2015 Encounters Date Type Department Care Team Description 11/30/2024 Refill [facility] [address] [place] [address] Giulia Armando MD Depression, unspecified depression type; Vitamin D deficiency 11/27/2024 Refill [facility] [address] [place] [address] Giulia Armando MD Depression, unspecified depression type 10/23/2024 Population Health Risk Score [facility] () Department [address] [place] [address], [place] [address] Provider, Population Health Generic 10/21/2024 10:00 AM EDT Telemedicine [facility] [address] [place] [address] Lynda Woods RN long term (current) use of opiate analgesic 10/21/2024 Telephone [facility] [address] [place] [address] Lynda Woods RN 10/21/2024 Travel 10/05/2024 Refill [facility] [address] [place] [address] Giulia Armando MD Persistent depressive disorder; Hypertension, unspecified type; B12 deficiency 09/28/2024 Refill [facility] [address] [place] [address] Giulia Armando MD Hypertension, unspecified type; Persistent depressive disorder 09/27/2024 Refill [facility] [address] [place] [address] Giulia Armando MD Persistent depressive disorder; Hypertension, unspecified type; B12 deficiency from Last 3 Months Immunizations Name Administration Dates Next Due Moderna Covid-19 Vaccine 12+ 06/29/2021,12/24/19 21,11/25/2020 Tdap 06/10/2017 Social History Tobacco Use Types Packs/Day Years Used Date Smoking Tobacco: Never Smokeless Tobacco: Never Tobacco Cessation:Counseling Given: Not Answered Alcohol Use Standard Drinks/Week Comments Defer 0 (1 standard drink = 0.6 oz pur e alcohol) Depression Answer Date Recorded Patient Health Questionnaire-9 Score 9 07/09/2023 Patient Health Questionnaire-9 Score 9 07/09/2023 Last PHQ-9: Questionnaire Data Not on file 1 09/08/2022 Housing Stability Answer Date Recorded What is your housing situation today? I have michelle maynard 06/10/[address] you li ve. Do you have problems with any of the following? None of the above 06/10/2023 Food Insecurity Answer Date Recorded Within the past 12 months, y ou worried that your food would run out before you got money to buy more: Never True 06/10/2023 Within the past 12 months,th e food you bought just didn't last and you didn't have enough money to get more: Never True Transportation Answer Date Recorded In the past 12 months, has l ack of transportation kept you from medical appts, meetings, work or from getting things needed for daily living? No 06/10/2023 Utilities Answer Date Recorded In the past 12 months, has t he [employer], gas, oil or water company threatened to shut off services in your home? No 06/10/2023 Depression Answer Date Recorded Patient Health Questionnaire-2 Score 2 07/09/2023 Sex and Gender Information Value Date Recorded Sex Assigned at Male 06/11/2022 10:28 AM EDT Legal Sex Male 10:28 AM EDT Gender Identity Male 06/11/2022 10:28 AM EDT Sexual Orientation Straight 06/11/2022 10 :28 AM EDT Last Filed Vital Signs Vital Sign Reading Time Taken Comments Blood Pressure 127/74 04/22/2023 10:07 AM EDT Pulse 73 04/22/2023 10:07 AM EDT Temperature 36.9 ??C (98.5 ??F) 04/22/2023 10:07 AM E DT Respiratory Rate 20 04/22/2023 10:07 AM EDT Oxygen Saturation 98% 04/22/2023 10:07 AM EDT Inhaled Oxygen Concentration - - Weight 102 kg (225 lb) 04/22/2023 10:07 AM EDT Height 157.5 cm (5' 2 ) 04/22/2023 10:07 AM EDT Body Mass Index 41.15 04/22/2023 10:07 AM EDT Plan of Treatment Upcoming Encounters Date Type Department Care Team (Late st Contact Info) Description 01/08/2025 10:45 AM EDT Office Visit [facility] [address] [place] [address] Giulia Armando MD 505 [place] [address] 01/20/2025 9:30 AM EDT Clinical Support [facility] [address] [place] [address] Lynda Woods, RN [address] [place] [address] Health Maintenance Due Date Last Done Comments CT Colonography 1961 FIT DNA/Cologuard 1961 FIT 1961 FOBT 1961 HIV Screening 1961 Sigmoidoscopy 1961 Alcohol/Substance Use Screening 1973 Hepatitis C Screening 1979 Pneumococcal Vaccine: 50+ Years (1 of 1 - PCV) 2011 Zoster Vaccines (1 of 2) 2011 RSV Patients and Patients Aged 60 years or older (1 - Risk 60-74 years 1-dose series) 2021 Colonoscopy 12/27/2021 12/27/2016 Colorectal Cancer Screening 12/27/2021 Dental Oral Exam 12/08/2022 06/08/2022, 05/2017, 11/21/2015 Dental Prophylaxis 12/08/2022 06/08/2022, 0 12/31/2016, 12/01/2015 Dental X-Ray: Bitewings 06/09/2023 06/08/20 22, 12/19/2016, 11/21/2015 SDOH Screening 01/04/2024 01/03/2023 COVID-19 Vaccine ( season) 2024 12/15/2021, 06/29/2021, 12/23/2020, Additional history exists Influenza Vaccine (#1) 2024 Depression Screening 07/09/2024 07/09/2023, 07/09/20 23 Tobacco Screening 07/09/2024 07/09/2023 Dental X-Ray: Full Mouth 06/09/2025 06/08/2022, 11/10 DTaP/Tdap/Td Vaccines (2 - Td or Tdap) 06/10/2027 06/10/2017 Lipid Panel 04/22/2028 04/22/2023, 12/12, 09/11/2022, Additional history exists HIB Vaccines Aged Out No longer eligi ble based on patient's age to complete this topic HPV Vaccines Aged Out No longer eligi ble based on patient's age to complete this topic Hepatitis A Vaccines Aged Out No long er eligible based on patient's age to complete this topic Hepatitis B Vaccines Aged Out No long er eligible based on patient's age to complete this topic IPV Vaccines Aged Out No longer eligi ble based on patient's age to complete this topic Meningococcal Vaccine Aged Out No toro rogers eligible based on patient's age to complete this topic RSV under 20 months Aged Out No longe r eligible based on patient's age to complete this topic Rotavirus Vaccines Aged Out No longer eligible based on patient's age to complete this topic Procedures Procedure Name Priority Date/Time Associated Diagnosis Comments LIPID PANEL, STANDARD Routine 04/22/2023 10:46 AM EDT Seizure disorder (CMS/HCC) PROPHYLAXIS - ADULT Routine 06/08/2022 1 2:00 AM EDT INTRAORAL - COMPLETE SERIES OF RADIOGRAPHIC IMAGES Routine 06/08/2022 12:00 AM EDT PERIODIC ORAL EVALUATION - ESTABLISHED PATIENT Routine 06/08/2022 12:00 AM EDT HM COLONOSCOPY Routine 12/27/2016 from Last 3 Months or Most Recently Relevant to Health Maintenance Results * Lipid Panel, Standard (04/22/2023 10:46 AM EDT) Triglycerides 140 <150 mg/dL [facility] Comment:Desirable Triglyceri de: less than 150 mg/dLBorderline High Triglyceride 150-199 mg/dLHigh Triglyceride: 200-499 mg/dLVery High Triglyceride: greater than or equal to 5OO mg/dL Cholesterol 163 <200 mg/dL [facility] Comment:Desirable Cholestero l: less than 200 mg/dLBorderline High Cholesterol: 200-239 mg/dLHigh Cholesterol: greater than 239 mg/dL LDL Cholesterol Calculated 82 <100 mg/dL [facility] Comment:Desirable LDL: less than 100 mg/dLNear Optimal/Above Optimal LDL: 110- 129 mg/dLBorderline High LDL: 130-159 mg/dLHigh LDL: 160-189 mg/dLVery High LDL: greater than or equal to 190 mg/dL HDL Cholesterol 53 >40 mg/dL [facility] Comment:Desirable HDL: great er than 40 mg/dL Note: This HDL assay may give artificially low results in patients with liver disease. Blood Venous blood specimen / Unknown 04/22/2023 10:46 AM EDT 04/22/2023 2:18 PM EDT Giulia Armando MD LAB BLOOD ORDERABLES Final Resul t [facility] [address] [place] [address] [phone] * Hm Colonoscopy (12/27/2016) Colonoscopy Normal Normal Historical Provider HEALTH MAINTENANCE Final Result from Last 3 Months or Most Recently Relevant to Health Maintenance Insurance [facility] C3 DENTAL - HSN FULL (MEDICAID) Care Teams Certified Endoscopy Technician Relationship Specialty Start Date End Date Giulia Armando MD [address] [place] [address] PCP - General Family Medicine 03/26/18 Nay Sanches Interior Design PrincipalOffice Bookkeeper 10/11/23
--- OUTSIDE RECORDS SUMMARY | 2024-12-03 11:05 | XMS_ITS | Encounter Summary ---
Author Organization [employer] [facility] Address [address] [place] [address] 7t [place] [address] Care Team Providers Care Deputy Fire Chief Name Role Phone Giulia Armando MD Primary Care Provider [phone] Encounter Details Date Type Department Care Team (Late st Contact Info) Description 07/18/2022 Abstract [facility] [address] [place] [address] Dental, Provider, DDS Social History Tobacco Use Types Packs/Day Years [...] Description 01/08/2025 10:45 AM EDT Office Visit [facility] [address] [facility] [address] Giulia Armando MD [address] [place] [address] 01/20/2025 9:30 AM EDT Clinical Support [facility] [address] [place] [address] Lynda Woods, CRISTÓBAL [address] [place] [address] documented as of this encounter Procedures Procedure Name Priority Date/Time Associated Diagnosis Comments 2 JASMYN COMPOSITE FILLING Routine 07/18/2022 12:00 AM EST 3 B COMPOSITE FILLING Routine 07/18/2022 12:00 AM EST 4 MO COMPOSITE FILLING Routine 07/18/2022 12:00 AM EST 5 COMPOSITE FILLING Routine 07/18/2022 12:00 AM EST 6 F COMPOSITE FILLING Routine 07/18/2022 12:00 AM EST 7 ML COMPOSITE FILLING Routine 07/18/2022 12:00 AM EST 9 LI COMPOSITE FILLING Routine 07/18/2022 12:00 AM EST 22 F COMPOSITE FILLING Routine 07/18/2022 12:00 AM EST 19 JASMYN COMPOSITE FILLING Routine 07/18/2022 12:00 AM EST 18 COMPOSITE FILLING Routine 07/18/2022 12:00 AM EST 31 JASMYN AMALGAM FILLING Routine 07/18/2022 12:00 AM EST documented in this encounter Visit Diagnoses Not on filedocumented in this encounter Care Teams Deputy Fire Chief Relationship Specialty Start Date End Date Giulia Armando MD [address] [place] [address] PCP - General Family Medicine 03/26/18 Nay Sanches Compensation Programs ManagerHealth Information Technologist 10/11/23 documented as of this encounter
--- OUTSIDE RECORDS SUMMARY | 2024-12-03 11:05 | XMS_ITS | Encounter Summary ---
Author Organization [employer] Address [address] [facility] 7t [place] [address] Care Team Providers Care Beadworker Name Role Phone Giulia Armando MD Primary Care Provider [phone] Reason for Visit * Reason Comments Med Refill Encounter Details Date Type Department Care Team ([facility] st Contact Info) Description 11/30/2024 Refill [facility] [address] [place] [address] Giulia Armando MD [address] [place], [place] [id number] Depression, unspecified depression type; Vitamin D deficiency Social History Tobacco Use Types Packs/Day Years Used Date Smoking Tobacco: Never Smokeless Tobacco: Never Alcohol Use Standard Drinks/Week Comments Defer 0 [...] the past 12 months, has t he electric, gas, oil or water company threatened to [...] Description 01/08/2025 10:45 AM EDT Office Visit [facility] [address] [place] [address] Giulia Armando MD [address] [place] [address] 01/20/2025 9:30 AM EDT Clinical Support [facility] [address] [place] [address] Lynda Woods, CRISTÓBAL [address] [place] [address] documented as of this encounter Visit Diagnoses Diagnosis Depression, unspecified depression type Vitamin D deficiency documented in this encounter Additional Health Concerns Assessment Noted Time PHQ-9 Depression Total Score: 9 07/09/20 23 10:54 AM EST documented as of this encounter Care Teams Beadworker Relationship Specialty Start Date End Date Giulia Armando MD [address] [place] [address] PCP - General Family Medicine 03/26/18 Nay Sanches Financial Analysis AdvisorWind Energy Systems Installer 10/11/23 documented as of this encounter
--- OUTSIDE RECORDS SUMMARY | 2024-12-03 11:05 | XMS_ITS | Encounter Summary ---
Author Organization [employer] Address [address] [facility] 7t [place] [address] Care Team Providers Care Nursing Home Admissions Director Name Role Phone Giulia Armando MD Primary Care Provider [phone] Encounter Details Date Type Department Care Team (Late Contact Info) Description 09/25/2022 Orders Only [facility] [address] [place], [place] [id number] Nikki Barnhart LPN Social History Tobacco Use Types Packs/Day Years Used Date Smoking Tobacco: Never Smokeless Tobacco: Never Sex and Gender Information Value Date Recorded Sex Assigned at Male 06/11/2022 10:28 AM EDT Legal Sex Male 10:28 AM EDT Gender Identity Male 06/11/2022 10:28 AM EDT Sexual Orientation Straight 06/11/2022 10 :28 AM EDT COVID-19 Exposure Response Date Recorded In the last 10 days, have yo u been in contact with someone who was confirmed or suspected to have Coronavirus/COVID-19? No / Unsure 09/11/2022 10:30 AM EST documented as of this encounter Plan of Treatment Upcoming Encounters Date Type Department Care Team (Late Contact Info) Description 01/08/2025 10:45 AM EDT Office Visit [facility] 505 [place] [address] Giulia Armando MD 505 [place] [address] 01/20/2025 9:30 AM EDT Clinical Support [facility] MED & PED[facility] 505 [facility] [place] [address] Lynda Woods RN 505 [facility] [place] documented as of this encounter Visit Diagnoses Not on filedocumented in this encounter Care Teams Nursing Home Admissions Director Relationship Specialty Start Date End Date Giulia Armando MD [address] [place] [address] PCP - General Family Medicine 03/26/18 Nay Sanches Material CutterCourtesy Bus Driver 10/11/23 documented as of this encounter
--- OUTSIDE RECORDS SUMMARY | 2024-12-03 11:05 | XMS_ITS | Encounter Summary ---
Author Organization [employer] Address [address] [facility] 7t [place] [address] Care Team Providers Care Electric Distribution Checker Name Role Phone Giulia Armando MD Primary Care Provider [phone] Encounter Details Date Type Department Care Team (Late Contact Info) Description 03/08/2023 Orders Only [facility] MED & PEDS 505 [facility] [place] [address] Giulia Armando MD [address] [place], [place] Social History Tobacco Use Types Packs/Day Years Used Date Smoking Tobacco: Never Smokeless Tobacco: Never Alcohol Use Standard Drinks/Week Comments Defer 0 (1 standard drink = 0.6 oz pur e alcohol) Sex and Gender Information Value Date Recorded Sex Assigned at Male 06/11/2022 10:28 AM EDT Legal Sex Male 10:28 AM EDT Gender Identity Male 06/11/2022 10:28 AM EDT Sexual Orientation Straight 06/11/2022 10 :28 AM EDT documented as of this encounter Plan of Treatment Upcoming Encounters Date Type Department Care Team (Late Contact Info) Description 01/08/2025 10:45 AM EDT Office Visit [facility] MED & PEDS 505 [place] [address] Giulia Armando MD [address] [place] [address] 01/20/2025 9:30 AM EDT Clinical Support [facility] MED & PEDS [address] [place] [address] Lynda Woods RN [address] [place] [address] documented as of this encounter Visit Diagnoses Not on filedocumented in this encounter Care Teams Electric Distribution Checker Relationship Specialty Start Date End Date Giulia Armando MD [address] [place] [address] PCP - General Family Medicine 03/26/18 Nay Sanches Crotch BreakerInstitutional Research Director 10/11/23 documented as of this encounter
--- OUTSIDE RECORDS SUMMARY | 2024-12-03 11:05 | XMS_ITS | Encounter Summary ---
Author Organization [employer] Address [address] [facility] 7t [place] [address] Care Team Providers Care Dry Chain Puller Name Role Phone Giulia Armando MD Primary Care Provider Reason for Visit * Reason Comments Med Refill Encounter Details Date Type Department Care Team ([facility] st Contact Info) Description 09/28/2024 Refill [facility] & PEDS [address] [place] [address] Giulia Armando MD [address] [place] [address] Hypertension, unspecified type; Persistent depressive disorder Social History Tobacco Use Types Packs/Day Years [...] Description 01/08/2025 10:45 AM EDT Office Visit [facility] MED & PEDS 505 [place] [address] Giulia Armando MD [address] [place] [address] 01/20/2025 9:30 AM EDT Clinical Support [facility] MED & PEDS [address] [place] [address] Lynda Woods, CRISTÓBAL [address] [place] [address] documented as of this encounter Visit Diagnoses Diagnosis Hypertension, unspecified type Persistent depressive disorder documented in this encounter Additional Health Concerns Assessment Noted Time PHQ-9 Depression Total Score: 9 07/09/20 23 10:54 AM EST documented as of this encounter Care Teams Dry Chain Puller Relationship Specialty Start Date End Date Giulia Armando MD [address] [place] [address] PCP - General Family Medicine 03/26/18 Nay Sanches Woods OverseerYeast Distiller 10/11/23 documented as of this encounter
--- OUTSIDE RECORDS SUMMARY | 2024-12-03 11:05 | XMS_ITS | Encounter Summary ---
Author Organization [employer] [facility] Address [address] [place] [address] 7t [place] [address] Care Team Providers Care Professional Development Director Name Role Phone Giulia Armando MD Primary Care Provider [phone] Encounter Details Date Type Department Care Team (Latest Contact Info) Description 06/08/2022 Abstract [facility] CON[facility] Dental, Provider, DDS Social History Tobacco Use [...] Upcoming Encounters Date Type Department Care Team ( st Contact Info) Description 01/08/2025 10:45 AM EDT Office Visit [facility] [address] [place] [address] Giulia Armando MD [address] [place] [address] 01/20/2025 9:30 AM EDT Clinical Support [facility] [address] [place] [address] Lynda Woods, CRISTÓBAL [address] [place] [address] documented as of this encounter Visit Diagnoses Not on filedocumented in this encounter Care Teams Professional Development Director Relationship Specialty Start Date End Date Giulia Armando MD [address] [place] [address] PCP - General Family Medicine 03/26/18 Nay Sanches Sales And Service SpecialistHeavy Duty Mechanic Farm Equipment 10/11/23 documented as of this encounter
--- OUTSIDE RECORDS SUMMARY | 2024-12-03 11:05 | XMS_ITS | Encounter Summary ---
Author Organization [employer] Address [address] [place] [address] 7 [place] [address] Care Team Providers Care Lap Runner Name Role Phone Giulia Armando MD Primary Care Provider [phone] Reason for Visit * Reason Comments Med Refill Encounter Details Date Type Department Care Team (Late st Contact Info) Description 08/20/2022 Refill [facility] MED & PEDS [address] [facility] [place] [address] Giulia Armando MD 505 [place] [address] Social History Tobacco Use Types Packs/Day Years [...] Description 01/08/2025 10:45 AM EDT Office Visit [facility] MED & PEDS 505 [facility] [place] [address] Giulia Armando MD [address] [place] [address] 01/20/2025 9:30 AM EDT Clinical Support [facility] MED & PEDS [address] [facility] [address] Lynda Woods, CRISTÓBAL 505 [facility] [place] [address] documented as of this encounter Visit Diagnoses Not on filedocumented in this encounter Care Teams Lap Runner Relationship Specialty Start Date End Date Giulia Armando MD [address] [place] [address] PCP - General Family Medicine 03/26/18 Nay Sanches Manager PublicDirector College 10/11/23 documented as of this encounter
--- OUTSIDE RECORDS SUMMARY | 2024-12-03 11:05 | XMS_ITS | Encounter Summary ---
Author Organization [employer] Address [address] [facility] 7t [place] [address] Care Team Providers Care B2B Managed Service Sales Exec Name Role Phone Giulia Armando MD Primary Care Provider [phone] Reason for Visit * Reason Comments Med Refill Encounter Details Date Type Department Care Team ([facility] st Contact Info) Description 09/27/[address] [facility] [address] [place] [address] Giulia Armando MD [address] [place] [address] Persistent depressive disorder; Hypertension, unspecified type; B12 deficiency Social History Tobacco Use Types Packs/Day [...] Description 01/08/2025 10:45 AM EDT Office Visit [facility] [address] [place] [address] Giulia Armando MD [address] [place] [address] 01/20/2025 9:30 AM EDT Clinical Support [facility] [address] [place] [address] Lynda Woods, RN [address] [place] [address] documented as of this encounter Visit Diagnoses Diagnosis Persistent depressive disorder Hypertension, unspecified type B12 deficiency documented in this encounter Additional Health Concerns Assessment Noted Time PHQ-9 Depression Total Score: 9 07/09/20 23 10:54 AM EST documented as of this encounter Care Teams B2B Managed Service Sales Exec Relationship Specialty Start Date End Date Giulia Armando MD [address] [place] [address] PCP - General Family Medicine 03/26/18 Nay Sanches Agricultural ResearcherRadiotelegraph Operator Servicer 10/11/23 documented as of this encounter
== END 2024-12-03 11:09 | disposition home or self-care (01) ==
LOC: HO.HSMS 09:52
PROVIDERS: PCP Student in an Organized Health Care Education/Training Program; Visit Provider Psychiatry & Neurology Neurology
DX: R26.9 Unspecified abnormalities of gait and mobility (principal); G40.909 Epilepsy, unspecified, not intractable, without status epilepticus; G47.33 Obstructive sleep apnea (adult) (pediatric)
CPT/HCPCS: 99214

== ENCOUNTER → 2024-12-03 09:51 | Outpatient (BNVA) | payer MEDICAID, SELFPAY | PROVIDERS: PCP Student in an Organized Health Care Education/Training Program; Visit Provider Psychiatry & Neurology Neurology | DX: R26.9 Unspecified abnormalities of gait and mobility (principal); G40.909 Epilepsy, unspecified, not intractable, without status epilepticus; G47.33 Obstructive sleep apnea (adult) (pediatric) | CPT/HCPCS: 99212 ==

== ENCOUNTER 2025-01-08 11:26 | Outpatient (REF) | payer MEDICAID, SELFPAY ==
--- OUTSIDE RECORDS SUMMARY | 2025-01-08 12:21 | XMS_ITS | Clinical Summary ---
Author Organization [employer] Address [address] [facility] 7[address] [place] [address] Care Team Providers Care Back Facer Name Role Phone Giulia Armando MD Primary Care Provider [phone] Allergies No known active allergies Medications docusate sodium (Colace) 100 MG capsuleIndicatio ns:Chronic idiopathic constipation TAKE 1 CAPSULE BY MOUTH 3 (THREE) TIMES A DAY 60 capsule 6 3 Active Bisacodyl EC 5 MG EC tabletIndication s:Chronic idiopathic constipation TAKE 2 TABLETS BY MOUTH AT BEDTIME NEEDED FOR CONSTIPATION 60 tablet 2 3 Active Dilantin 100 MG capsule TAKE 1 CAPSULE BY MOUTH 3 (THREE) TIMES A DAY 90 capsule 11 4 Active esomeprazole (NexIUM) [address] capsuleIndicatio ns:Gastroesophag eal reflux disease without esophagitis TAKE 1 CAPSULE BY MOUTH ONCE DAILY 90 capsule 3 4 Active PHENobarbital 64.8 MG tabletIndication s:Depressive disorder TAKE 1 TABLET BY MOUTH 3 (THREE) TIMES A DAY 90 tablet 3 4 Active traMADol (Ultram) 50 MG tabletIndication s:Chronic bilateral low back pain without sciatica Take 1 tablet (50 mg) by mouth in the morning. 28 tablet 4 Active folic acid (Folvite) 400 MCG tabletIndication s:Persistent depressive disorder TAKE 1 TABLET BY MOUTH ONCE DAILY 30 tablet 5 5 Active simvastatin (Zocor) 10 MG tabletIndication s:Hypertension, unspecified type TAKE 1 TABLET BY MOUTH ONCE DAILY 30 tablet 5 5 Active furosemide (Lasix) 20 MG tabletIndication s:Hypertension, unspecified type TAKE 1 TABLET BY MOUTH two (2) times a day 60 tablet 5 5 Active cyanocobalamin (Vitamin B-12) 1000 MCG tabletIndication s:B12 deficiency TAKE 1 TABLET BY MOUTH IN THE MORNING 30 tablet 5 5 Active ARIPiprazole (Abilify) 10 MG tabletIndication s:Persistent depressive disorder TAKE 1 TABLET BY MOUTH IN THE MORNING 30 tablet 5 5 Active traZODone (Desyrel) 100 MG tabletIndication s:Depression, unspecified depression type TAKE 2 TABLETS BY MOUTH AT BEDTIME 60 tablet 5 Active DULoxetine (Cymbalta) [address] capsuleIndicatio ns:Depression, unspecified depression type TAKE 2 CAPSULES BY MOUTH IN THE MORNING 60 capsule 8 5 Active ergocalciferol (Vitamin D2) 1.25 MG (20267 UT) capsuleIndicatio ns:Vitamin D deficiency TAKE 1 CAPSULE BY MOUTH every Saturday 4 capsule 8 5 Active Blood Pressure kit Check blood pressure daily 1 kit 5 Active carbamide peroxide (Debrox) 6.5 % otic solution Administer 5-10 drops into affected ear(s) 2 times daily for 4 days. 30 mL 5 025 Active Active Problems Problem Noted Date Diagnosed Date Edema of lower extremity 08/30/2021 Gastroesophageal reflux disease 04/29/2015 Seizure disorder 04/29/2015 Depressive disorder 04/29/2015 Encounters Date Type Department Care Team Description 01/08/2025 10:45 AM EDT Office Visit [facility] [address] [place] [address] Giulia Armando MD Urinary hesitancy (Primary Dx); Seizure disorder (CMS/HCC); Edema of lower extremity; Encounter for annual wellness visit; Encounter for screening for malignant neoplasm of colon; Impacted cerumen of left ear 01/08/2025 Travel 12/28/2024 Patient Outreach [facility] [address] [place] [phone] Giulia Armando MD Pre-visit Planning (SDOH screening negative and Tobacco screening negative) 11/30/2024 Refill [facility] [address] [place] [address] Giulia Armando MD Depression, unspecified depression type; Vitamin D deficiency 11/27/2024 Refill [facility] [address] [place], [place] [phone] Giulia Armando MD Depression, unspecified depression type 10/23/2024 Population Health Risk Score Community Care [facility] ([facility] Department [address] [place] [phone] Provider, Population Health Generic 10/21/2024 10:00 AM EDT Telemedicine [facility] [address] [place], [place] [phone] Lynda Woods, [facility] shelter (current) use of opiate analgesic 10/21/2024 Telephone [facility] [address] [place], [place] [phone] Lynda Woods, CRISTÓBAL 10/21/2024 Travel from Last 3 Months Immunizations Immunization Administration Dates Next Due Moderna Covid-19 Vaccine 12+ 06/29/2021,12/24/19 21,11/25/2020 Tdap 06/10/2017 Social History Tobacco Use Types Packs/Day Years Used Date Smoking Tobacco: Never Smokeless Tobacco: Never Tobacco Cessation:Counseling Given: Not Answered Alcohol Use Standard Drinks/Week Comments Defer 0 (1 standard drink = 0.6 oz pur e alcohol) Depression Answer Date Recorded Patient Health Questionnaire-9 Score 0 01/08/2025 Patient Health Questionnaire-9 Score 0 01/08/2025 Last PHQ-9: Questionnaire Data Not on file 0 01/08/2025 Housing Stability Answer Date Recorded What is your housing situation today? I have michelle maynard 12/28/[address] you li ve. Do you have problems with any of the following? None of the above 12/28/2024 Food Insecurity Answer Date Recorded Within the past 12 months, y ou worried that your food would run out before you got money to buy more: Never True 12/28/2024 Within the past 12 months,th e food you bought just didn't last and you didn't have enough money to get more: Never True Transportation Answer Date Recorded In the past 12 months, has l ack of transportation kept you from medical appts, meetings, work or from getting things needed for daily living? No 12/28/2024 Utilities Answer Date Recorded In the past 12 months, has t he electric, gas, oil or water company threatened to shut off services in your home? No 12/28/2024 Depression Answer Date Recorded Patient Health Questionnaire-2 Score 0 01/08/2025 Internet Access Answer Date Recorded Internet Access Q1 No 12/28/2024 Internet Access Q2 I do not want or need it 12/10 Sex and Gender Information Value Date Recorded Sex Assigned at Male 06/11/2022 10:28 AM EDT Legal Sex Male 10:28 AM EDT Gender Identity Male 06/11/2022 10:28 AM EDT Sexual Orientation Straight 06/11/2022 10 :28 AM EDT Last Filed Vital Signs Vital Sign Reading Time Taken Comments Blood Pressure 141/81 01/08/2025 10:44 AM EDT Pulse 78 01/08/2025 10:44 AM EDT Temperature 36.3 ??C (97.3 ??F) 01/08/2025 10:44 AM E DT Respiratory Rate 20 01/08/2025 10:44 AM EDT Oxygen Saturation 97% 01/08/2025 10:44 AM EDT Inhaled Oxygen Concentration - - Weight 99.3 kg (219 lb) 01/08/2025 10:44 AM EDT Height 157.5 cm (5' 2 ) 01/08/2025 10:44 AM EDT Body Mass Index 40.06 01/08/2025 10:44 AM EDT Plan of Treatment Upcoming Encounters Date Type Department Care Team ([facility] st Contact Info) Description 01/20/2025 9:30 AM EDT Clinical Support [facility] [address] [place] [address] Lynda Woods, CRISTÓBAL [address] [place] [address] Health Maintenance Due Date Last Done Comments CT Colonography 1961 FIT DNA/Cologuard 1961 FIT 1961 FOBT 1961 HIV Screening 1961 Sigmoidoscopy 1961 Alcohol/Substance Use Screening 1973 Hepatitis C Screening 1979 RSV Patients and Patients Aged 60 years or older (1 - Risk 60-74 years 1-dose series) 2021 Colonoscopy 12/27/2021 12/27/2016 Colorectal Cancer Screening 12/27/2021 Dental Oral Exam 12/08/2022 06/08/2022, 05/2017, 11/21/2015 Dental Prophylaxis 12/08/2022 06/08/2022, 0 12/31/2016, 12/01/2015 Dental X-Ray: Bitewings 06/09/2023 06/08/20 22, 12/19/2016, 11/21/2015 Influenza Vaccine (#1) 2024 Dental X-Ray: Full Mouth 06/09/2025 06/08/2022, 11/10 SDOH Screening 12/28/2025 12/28/2024 COVID-19 Vaccine ( season) 2026 12/15/2021, 06/29/2021, 12/23/2020, Additional history exists Postponed from 04/12/2024 (Patient Refused) Depression Screening 01/08/2026 01/08/2025, 01/09/20 25 Disability Screening 01/08/2026 01/08/2025 Pneumococcal Vaccine: 50+ Years (1 of 1 - PCV) 01/08/2026 Postponed from 2011 (Patient Refused) Tobacco Screening 01/08/2026 01/08/2025 Zoster Vaccines (1 of 2) 01/08/2026 Pos tponed from 2011 (Patient Refused) DTaP/Tdap/Td Vaccines (2 - Td or Tdap) [...] patient's age to complete this topic Meningococcal B Vaccine Aged Out No l onger eligible based on patient's age to complete [...] 10:46 AM EDT) Triglycerides 140 <150 mg/dL [facility] Comment:Desirable Triglyceri de: less than 150 mg/dLBorderline High Triglyceride 150-199 mg/dLHigh Triglyceride: 200-499 mg/dLVery High Triglyceride: greater than or equal to 5OO mg/dL Cholesterol 163 <200 mg/dL [facility] Comment:Desirable Cholestero l: less than 200 mg/dLBorderline High Cholesterol: 200-239 mg/dLHigh Cholesterol: greater than 239 mg/dL LDL Cholesterol Calculated 82 <100 mg/dL [facility] Comment:Desirable LDL: less than 100 mg/dLNear Optimal/Above Optimal LDL: 110- 129 mg/dLBorderline High LDL: 130-159 mg/dLHigh LDL: 160-189 mg/dLVery High LDL: greater than or equal to 190 mg/dL HDL Cholesterol 53 >40 mg/dL [facility] Comment:Desirable HDL: great er than 40 mg/dL Note: This HDL assay may give artificially low results in patients with liver disease. Blood Venous blood specimen / Unknown 04/22/2023 10:46 AM EDT 04/22/2023 2:18 PM EDT Giulia Armando MD LAB BLOOD ORDERABLES Final Resul t [facility] [address] [place] [address] [phone] * Hm Colonoscopy (12/27/2016) Colonoscopy Normal Normal Historical Provider HEALTH MAINTENANCE Final Result from Last 3 Months or Most Recently Relevant to Health Maintenance Insurance [facility] C3 DENTAL - HSN FULL (MEDICAID) Care Teams Back Facer Relationship Specialty Start Date End Date Giulia Armando MD [address] [place] [id number] PCP - General Family Medicine 03/26/18 Nay Sanches Hide SplitterCommunication Technician 10/11/23
[2025-01-08 15:39] LABS: PSA,Total (Free>4and<10) 0.97 ng/mL (0.00-4.00)
[2025-01-08 17:13] LABS: Alanine Aminotransferase 39 U/L (0-40); Albumin Level 4.4 g/dL (3.5-5.0); Alkaline Phosphatase 101 U/L (39-117); Anion Gap 14 (12-20); Aspartate Amino Transferase 33 U/L (5-37); Bilirubin Direct < 0.2 mg/dL (0.0-0.5); Bilirubin Total 0.2 mg/dL (0.0-1.0); Blood Urea Nitrogen 8 mg/dL (9-16); Calcium 8.9 mg/dL (8.4-10.2); Carbon Dioxide 26 mmol/L (22-29); Chloride 106 mmol/L (96-108); Cholesterol 168 mg/dL (<200); Estimated Glomerular Filt Rate > 60; Glucose Random 107 mg/dL (60-115); HDL Cholesterol 50 mg/dL (>40); LDL Cholesterol Calculated 84 mg/dL (<100); Sodium 143 mmol/L (135-145); Total Protein 7.7 g/dL (6.5-8.0); Triglycerides 174 mg/dL (<150)
== END 2025-01-08 11:27 | disposition home or self-care (01) ==
LOC: HO.CHCLDS 11:26
PROVIDERS: Visit Provider Student in an Organized Health Care Education/Training Program
DX: G40.909 Epilepsy, unspecified, not intractable, without status epilepticus (principal); R39.11 Hesitancy of micturition
CPT/HCPCS: 36415; 80048; 80061; 80076; 84153

== ENCOUNTER 2025-01-13 09:59 | Outpatient (AMB) | payer MEDICAID, SELFPAY ==
--- NOTE | 2025-01-13 10:02 | A.OFFVIS_ITS ---
Vital Signs 01/13/25 10:14 Height 5 ft 3 in Weight 222 lb BMI 39.3 BP 116/60 Blood Pressure Location Rt brachial Position Sitting Pulse 72 Pulse Source Pulse Oximeter Pulse Oximetry (%) 96 Oxygen Delivery Method Room Air Intake Visit Reasons: 6 month follow up Intake Note: Established patient for mgmt of GERD + CIC. CC: Pt denies any GI sx or concerns at this time. Pt comments that his sx are well controlled and have remained stable since last visit. Urologic Surgeon Required: Yes Urologic Surgeon Services: Urologic Surgeon Present [place]rologic Sur[place] [facility] [place] Thompson [id number] Information Interpreted: clinical only Accompanied by: Self / Same As Patient Allergies No Known Allergies [No Known Allergies*] Allergy (Verified 01/13/25 10:03) HPI HPI 6 month follow up: Details: Assessment & Plan (1) GERD (gastroesophageal reflux disease): Code(s): K21.9 - Gastro-esophageal reflux disease without esophagitis Category: Medical (2) Chronic idiopathic constipation: Code(s): K59.04 - Chronic idiopathic constipation Category: Medical (3) Jose's esophagus determined by biopsy: Comment: No Barretts discovered on biopsy from 2023 scope Code(s): K22.70 - Jose's esophagus without dysplasia Category: Medical Plan [place] #Katelyn Live He is here today with 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 He feels that is 145 micro g dose of the Linzess along with the bisacodyl is controlling his bowels well. He also continues on his pantoprazole and simethicone. 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 Medications: Changed From bisacodyl 10 mg (2 x 5 mg) PO BEDTIME PRN 60 tabs 2RF for constipation K59.04 - Chronic idiopathic constipation To bisacodyl 10 mg (2 x 5 mg) PO BEDTIME PRN 60 tabs 2RF for constipation 90 days K59.04 - Chronic idiopathic constipation From linaclotide (Linzess) 145 mcg PO QAM 30 caps 6RF K59.04 - Chronic idiopathic constipation To linaclotide (Linzess) 145 mcg PO QAM 90 caps 1RF 90 days K59.04 - Chronic idiopathic constipation From pantoprazole (Protonix) 40 mg PO BID 60 tabs 6RF K22.70 - Jose's esophagus without dysplasia To pantoprazole (Protonix) 40 mg PO BID 180 tabs 1RF 90 days K22.70 - Jose's esophagus without dysplasia Refilled docusate sodium 100 mg PO DAILY 30 caps 11RF K59.04 - Chronic idiopathic constipation simethicone 180 mg PO TID 270 caps 1RF R14.0 - Abdominal distension (gaseous) Discontinued linaclotide (Linzess) Discontinued Reason: Doctor's Order 72 mcg PO QAM 30 caps 6RF K59.04 - Chronic idiopathic constipation TODAYS VISIT American #Maria Luisa Martin 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 He feels that is 145 micro g dose of the Linzess along with the bisacodyl is controlling his bowels well. He also continues on his pantoprazole and simethicone. He says my doctor will be seeing me for another colon study, but he is UTD through us and is not due until 2026. He confirms that his PCP is [facility]. Dr. Gonzales Armando and I will try to [place] Text him. ROV 6 mos. PFS Medical History Obstructive sleep apnea Numbness and tingling of both legs Hypersomnia Snoring Gait disorder MATEO on CPAP Arthritis Lower extremity edema Depression Seizure disorder GERD (gastroesophageal reflux disease) Chronic idiopathic constipation Surgical History History of intestinal surgery History of esophagogastroduodenoscopy (EGD) (~2017) Hx of colonoscopy (~2017) Family History Mother Heart attack Social History Alcohol intake: never Patient Tobacco Use Status: Never used Tobacco Review of Systems Const Denies fatigue, Denies fever(s), Denies night sweats, Denies poor appetite and Denies weight loss Eyes Details: glasses Reports requires corrective lenses ENT Reports Normal hearing present, Denies dental pain, Denies dysphagia, Denies h earing loss, Denies mouth pain, Denies odynophagia, Denies throat swelling, Denies tongue swelling and Reports other (Dentition adequate) Card Reports no additional complaints Resp Reports no additional complaints GI Details: Denies abdominal pain, Denies melena, Denies bloating, Denies hematochezia, Reports constipation, Denies GI cramping, Denies dysphagia, Denies excessive flatus, Denies early satiety, Reports heartburn, Denies diarrhea, Denies nausea, Denies odynophagia, Denies vomiting and Denies hematemesis Skin/Breast Denies pruritus, Denies lesions, Denies rash and Denies jaundice Neuro Reports Normal hearing present and Denies Abnormal speech present Endo Denies fatigue Aller/Immun Denies throat swelling and Denies tongue swelling Physical Exam Vital Signs: Last Vital Signs Pulse 72 01/13/25 10:14 BP 116/60 01/13/25 10:14 Pulse Ox 96 01/13/25 10:14 Oxygen Delivery Method Room Air 01/13/25 10:14 BMI result Body Mass Index 39.3 Const General: cooperative, no acute distress, well developed and well groomed Nutritional Appearance: well nourished and obese Orientation/consciousness: oriented to person, oriented to place and oriented to time Limitations: language barrier and ambulation with walker HEENT Head: Yes normocephalic and Yes atraumatic Eyes General: appearance normal, both eyes and all related structures Pupils: Equal, round and reactive pupils present Neck Neck: Yes normal visual inspection and Yes no lymphadenopathy Thyroid: Thyroid normal Resp Effort & Inspection: normal respiratory effort and able to speak in complete sentences Auscultation: clear to auscultation bilaterally Cardio Rate: regular rate Rhythm: regular rhythm Heart sounds: Normal, physiologic split S2 sound present Peripheral pulses: radial pulses present and posterior tibial pulses present GI Inspection: No distended, Yes Abdominal panniculus present and Yes obesity Palpation (GI): Soft to palpation, nontender, no guarding, not rigid and No hepatosplenomegaly present Percussion: Yes normal to percussion Auscultation: normal bowel sounds Rectal Exam - Male: Yes deferred Skin General skin exam: no rashes or lesions noted, turgor normal, skin not dry, no jaundice, No spider nevi and no striae Rashes: no rashes Nails: normal Neuro General: oriented to person, oriented to place and oriented to time Cranial nerves: Yes Equal, round and reactive pupils present and Yes Normal hearing present Speech: No Abnormal speech present Extrem General: Yes normal to inspection, No clubbing, No cyanosis and No edema Psych Appearance: grossly normal and well kempt Mental Status: mental status grossly normal Speech and movement: Normal speech and movement present Affect: normal affect Attitude: cooperative Thought process: Normal thought process present and not confabulating Thought content: Normal thought content present Insight: Fair insight present (Psych) Judgement: Fair judgement present (Psych) Assessment & Plan Assessment & Plan (1) Chronic idiopathic constipation: Code(s): K59.04 - Chronic idiopathic constipation Category: Medical (2) GERD (gastroesophageal reflux disease): Code(s): K21.9 - Gastro-esophageal reflux disease without esophagitis Category: Medical Plan American #Maria Luisa Martin 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 He feels that is 145 micro g dose of the Linzess along with the bisacodyl is c ontrolling his bowels well. He also continues on his pantoprazole and simethicone. He says my doctor will be seeing me for another colon study, but he is UTD through us and is not due until 2026. He confirms that his PCP is [facility]. Dr. Gonzales Armando and I will try to [place] Text him. ROV 6 mos. Medications: Refilled pantoprazole (Protonix) 40 mg PO BID 180 tabs 1RF 90 days K22.70 - Jose's esophagus without dysplasia simethicone 180 mg PO TID 270 caps 1RF R14.0 - Abdominal distension (gaseous) docusate sodium 100 mg PO DAILY 30 caps 11RF K59.04 - Chronic idiopathic constipation bisacodyl 10 mg (2 x 5 mg) PO BEDTIME PRN 60 tabs 2RF for constipation K59.04 - Chronic idiopathic constipation linaclotide (Linzess) 145 mcg PO QAM 90 caps 1RF 90 days K59.04 - Chronic idiopathic constipation Coding Level of Care Code Est Pt Level 3 (92521) Diagnoses Chronic idiopathic constipation K59.04 GERD (gastroesophageal reflux disease) K21.9
[2025-01-13 10:14] VITALS: BP 116/60; PULSE 72; O2SAT 96; BMI 39.3
--- OUTSIDE RECORDS SUMMARY | 2025-01-13 10:33 | XMS_ITS | Clinical Summary ---
Author Organization [employer] Address [address] [facility] [address] [place] [address] Care Team Providers Care Head Insulation Board Saw Operator Name Role Phone Giulia Armando MD Primary Care Provider [phone] Allergies No known active allergies Medications docusate sodium (Colace) 100 MG capsuleIndicatio ns:Chronic idiopathic constipation TAKE 1 CAPSULE BY MOUTH 3 (THREE) TIMES A DAY 60 capsule 6 08/21/19 23 Active Bisacodyl EC 5 MG EC tabletIndication s:Chronic idiopathic constipation TAKE 2 TABLETS BY MOUTH AT BEDTIME NEEDED FOR CONSTIPATION 60 tablet 2 09/26/19 23 Active Dilantin 100 MG capsule TAKE 1 CAPSULE BY MOUTH 3 (THREE) TIMES A DAY 90 capsule 11 10/11/19 24 Active esomeprazole (NexIUM) [address] capsuleIndicatio ns:Gastroesophag eal reflux disease without esophagitis TAKE 1 CAPSULE BY MOUTH ONCE DAILY 90 capsule 3 12/10/19 24 Active PHENobarbital 64.8 MG tabletIndication s:Depressive disorder TAKE 1 TABLET BY MOUTH 3 (THREE) TIMES A DAY 90 tablet 3 04/02/20 24 Active traMADol (Ultram) 50 MG tabletIndication s:Chronic bilateral low back pain without sciatica Take 1 tablet (50 mg) by mouth in the morning. 28 tablet 08/07/20 24 Active folic acid (Folvite) 400 MCG tabletIndication s:Persistent depressive disorder TAKE 1 TABLET BY MOUTH ONCE DAILY 30 tablet 5 10/06/19 25 Active simvastatin (Zocor) 10 MG tabletIndication s:Hypertension, unspecified type TAKE 1 TABLET BY MOUTH ONCE DAILY 30 tablet 5 10/06/19 25 Active furosemide (Lasix) 20 MG tabletIndication s:Hypertension, unspecified type TAKE 1 TABLET BY MOUTH two (2) times a day 60 tablet 5 10/06/19 25 Active cyanocobalamin (Vitamin B-12) 1000 MCG tabletIndication s:B12 deficiency TAKE 1 TABLET BY MOUTH IN THE MORNING 30 tablet 5 10/06/19 25 Active ARIPiprazole (Abilify) 10 MG tabletIndication s:Persistent depressive disorder TAKE 1 TABLET BY MOUTH IN THE MORNING 30 tablet 5 10/06/19 25 Active traZODone (Desyrel) 100 MG tabletIndication s:Depression, unspecified depression type TAKE 2 TABLETS BY MOUTH AT BEDTIME 60 tablet 11/28/19 25 Active DULoxetine (Cymbalta) [address] capsuleIndicatio ns:Depression, unspecified depression type TAKE 2 CAPSULES BY MOUTH IN THE MORNING 60 capsule 8 12/03/19 25 Active ergocalciferol (Vitamin D2) 1.25 MG (79072 UT) capsuleIndicatio ns:Vitamin D deficiency TAKE 1 CAPSULE BY MOUTH every Saturday 4 capsule 8 12/03/19 25 Active Blood Pressure kit Check blood pressure daily 1 kit 01/09/20 25 Active carbamide peroxide (Debrox) 6.5 % otic solution Administer 5-10 drops into affected ear(s) 2 times daily for 4 days. 30 mL 01/09/20 25 025 Active Problems Problem Noted Date Diagnosed Date Edema of lower extremity 08/30/2021 Gastroesophageal reflux disease 04/29/2015 Seizure disorder 04/29/2015 Depressive disorder 04/29/2015 Encounters Date Type Department Care Team Description 01/11/2025 Orders Only [facility] [address] [place] [address] Giulia Armando MD Edema of lower extremity (Primary Dx) 01/11/2025 Results Follow-Up [facility] [address] [place] [address] Giulia Armando MD Basic Metabolic Panel, Lipid Panel, Standard, Hepatic Function Panel, PSA, Total With Reflex to PSA, Free 01/08/2025 10:45 AM EDT Office Visit [facility] [address] [place] [address] Giulia Armando MD Urinary hesitancy (Primary Dx); Seizure disorder (CMS/HCC); Edema of lower extremity; Encounter for annual wellness visit; Encounter for screening for malignant neoplasm of colon; Impacted cerumen of left ear 01/08/2025 Travel 12/28/2024 Patient Outreach [facility] [address] [facility] [place] [place] [address] Giulia Armando MD Pre-visit Planning (SDOH screening negative and Tobacco screening negative) 11/30/2024 Refill [facility] [address] [facility] [place] [phone] Giulia Armando MD Depression, unspecified depression type; Vitamin D deficiency 11/27/2024 Refill [facility] [address] [facility] [place] [address] Giulia Armando MD Depression, unspecified depression type 10/23/2024 Population Health Risk Score [facility] () Department [address] [place] [address] [phone] Provider, Population Health Generic 10/21/2024 10:00 AM EDT Telemedicine [facility] [address] [place] [address] Lynda Woods RN long term (current) use of opiate analgesic 10/21/2024 Telephone [facility] [address] [place] [address] Lynda Woods RN 10/21/2024 Travel from Last 3 Months Immunizations [...] Care Team (Late st Contact Info) Description 01/20/2025 9:30 AM EDT Clinical Support [facility] [address] [place] [address] Lynda Woods CRIST[employer]BAL [address] [place] [address] Health Maintenance Due Date Last Done Comments [...] 0 12/31/2016, 12/01/2015 Dental X-Ray: Bitewings 06/09/2023 06/08/20, 12/19/2016, 11/21/2015 Influenza Vaccine (Season Ended) 2025 Dental X-Ray: Full Mouth 06/09/2025 06/08/2022, 11/10 [...] Td or Tdap) 06/10/2027 06/10/2017 Lipid Panel 01/08/2030 01/08/2025, 04/12, 01/08/2023, Additional history exists HIB Vaccines Aged Out [...] Procedure Name Priority Date/Time Associated Diagnosis Comments PSA, TOTAL WITH REFLEX TO PSA, FREE Routine 01/08/2025 11:27 AM EDT Urinary hesitancy HEPATIC FUNCTION PANEL Routine 01/08/2025 11:27 AM EDT Seizure disorder (CMS/HCC) LIPID PANEL, STANDARD Routine 01/08/2025 11:27 AM EDT Seizure disorder (CMS/HCC) BASIC METABOLIC PANEL Routine 01/08/2025 11:27 AM EDT Seizure disorder (CMS/HCC) PROPHYLAXIS - ADULT Routine 06/08/2022 1 2:00 AM EDT INTRAORAL - COMPLETE SERIES OF RADIOGRAPHIC IMAGES Routine 06/08/2022 12:00 AM EDT PERIODIC ORAL EVALUATION - ESTABLISHED PATIENT Routine 06/08/2022 12:00 AM EDT HM COLONOSCOPY Routine 12/27/2016 from Last 3 Months or Most Recently Relevant to Health Maintenance Results * PSA, Total With Reflex to PSA, Free (01/08/2025 11:27 AM EDT) PSA,Total (Free>4and<10) 0.97 0.00 - 4.00 ng/mL [facility] Comment:A Free PSA was not p erformed: The percentage of Free PSA can be used to enhance the differentiation of prostate cancer from benign prostatic disease in subjects whose PSA levels are between 4.0 and 10.0 ng/mL. For subjects whose PSA levels are below 4.0 or above 10.0 ng/mL, the risk of prostate cancer is determined on the basis of the PSA alone. Therefore the % Free PSA is recommended only for those subjects whose PSA levels are between 4.0 and 10.0 ng/mL.PSA methodology: Rowan Alinity i ChemiluminescentMicroparticle Immunoassay (CMIA) 01/08/2025 11:2 7 AM EDT 01/08/2025 2:51 PM EDT Giulia Armando MD LAB BLOOD ORDERABLES Final Resul t Performing Organization Address [facility] Co de Phone Number [facility] [address] [place] [phone] * Hepatic Function Panel (01/08/2025 11:27 AM EDT) Bilirubin, Total 0.2 0.0 - 1.0 mg/dL [facility] Bilirubin, Direct <0.2 0.0 - 0.5 mg/dL [facility] Aspartate Amino Transferase 33 5 - 37 U/L [facility] Alanine Aminotransferase 39 0 - 40 U/L [facility] Total Protein 7.7 6.5 - 8.0 g/dL [facility] Albumin Level 4.4 3.5 - 5.0 g/dL [facility] Alkaline Phosphatase 101 39 - 117 U/L [facility] Blood Venous blood specimen / Unknown 01/08/2025 11:27 AM EDT 01/08/2025 2:51 PM EDT us Giulia Armando MD LAB BLOOD ORDERABLES Final Resul t Performing Organization Address [facility] Co de Phone Number [facility] [address] [place] [phone] * (ABNORMAL) Lipid Panel, Standard (01/08/2025 11:27 AM EDT) Triglycerides 174(H) <150 mg/dL [facility] Comment:Desirable Triglyceri de: less than 150 mg/dLBorderline High Triglyceride 150-199 mg/dLHigh Triglyceride: 200-499 mg/dLVery High Triglyceride: greater than or equal to 5OO mg/dL Cholesterol 168 <200 mg/dL [facility] Comment:Desirable Cholestero l: less than 200 mg/dLBorderline High Cholesterol: 200-239 mg/dLHigh Cholesterol: greater than 239 mg/dL LDL Cholesterol Calculated 84 <100 mg/dL [facility] Comment:Desirable LDL: less than 100 mg/dLNear Optimal/Above Optimal LDL: 110- 129 mg/dLBorderline High LDL: 130-159 mg/dLHigh LDL: 160-189 mg/dLVery High LDL: greater than or equal to 190 mg/dL HDL Cholesterol 50 >40 mg/dL [facility] Comment:Desirable HDL: great er than 40 mg/dL Note: This HDL assay may give artificially low results in patients with liver disease. Blood Venous blood specimen / Unknown 01/08/2025 11:27 AM EDT 01/08/2025 2:51 PM EDT us Giulia Armando MD LAB BLOOD ORDERABLES Final Resul t [facility] [address] [place] [phone] * (ABNORMAL) Basic Metabolic Panel (01/08/2025 11:27 AM EDT) Sodium 143 135 - 145 mmol/L [facility] Potassium 3.0(L) 3.3 - 5.1 mmol/L [facility] Chloride 106 96 - 108 mmol/L [facility] Carbon Dioxide 26 22 - 29 mmol/L [facility] Anion Gap 14 12 - 20 [facility] Urea Nitrogen (BUN) 8(L) 9 - 16 mg/dL [facility] Creatinine, Serum 0.77 0.5 - 1.4 mg/dL [facility] Estimated Glomerular Filt Rate >60 [facility] Comment:Chronic Kidney Disea se: Estimated GFR < 60 mL/min/[id number] Kidney Disease: Estimated GFR < 15 mL/min/1.73m2 Glucose 107 60 - 115 mg/dL [facility] Calcium 8.9 8.4 - 10.2 mg/dL [facility] Blood Venous blood specimen / Unknown 01/08/2025 11:27 AM EDT 01/08/2025 2:51 PM EDT Giulia Armando MD LAB BLOOD ORDERABLES Final Resul t [facility] [address] [place] [phone] * Colonoscopy (12/27/2016) Colonoscopy Normal Normal Historical Provider HEALTH MAINTENANCE Final Result from Last 3 Months or Most Recently Relevant to Health Maintenance Insurance [facility] C3 DENTAL - HSN FULL (MEDICAID) Care Teams Head Insulation Board Saw Operator Relationship Specialty Start Date End Date Giulia Armando MD [address] [place] [phone] PCP - General Family Medicine 03/26/18 [employer] ManagerPie Crimping Machine Operator 10/11/23
== END 2025-01-13 10:28 | disposition home or self-care (01) ==
LOC: HO.HGI 09:59
PROVIDERS: PCP Student in an Organized Health Care Education/Training Program; Visit Provider Nurse Practitioner
DX: K59.04 Chronic idiopathic constipation (principal); K21.9 Gastro-esophageal reflux disease without esophagitis
CPT/HCPCS: 99213

== ENCOUNTER → 2025-01-13 09:59 | Outpatient (BNVA) | payer MEDICAID, SELFPAY | PROVIDERS: PCP Student in an Organized Health Care Education/Training Program; Visit Provider Nurse Practitioner | DX: K59.04 Chronic idiopathic constipation (principal); K21.9 Gastro-esophageal reflux disease without esophagitis | CPT/HCPCS: 99212 ==

== ENCOUNTER 2025-01-20 09:44 | Outpatient (AMB) | payer MEDICAID, SELFPAY ==
[2025-01-20 09:46] VITALS: BMI 39.3
--- NOTE | 2025-01-20 09:46 | A.OFFVIS_ITS ---
Vital Signs 01/20/25 09:46 Height 5 ft 3 in Weight 222 lb BMI 39.3 Intake Visit Reasons: follow up Intake Note: Patient presents for follow up PT done 10/22/24. med trial gabapentin Truss Assembler Required: Yes Truss Assembler Services: Truss Assembler Present Truss Assembler Name: tima jones Information Interpreted: non-clinical & clinical Allergies No Known Allergies [No Known Allergies*] Allergy (Verified 01/13/25 10:03) HPI Comments Details: 64 y/o male patient presents for follow up of seizure disorder and gait problem. No seizures since 2010He has h/o seizures since childhood, secondary generalized tonic clonic seizures. He is on phenobarb 64.8 mg tid, dilantin 100mg tid. His last seizure was 13 years ago.2010 He is complaint with medications. He is sleeping better now. He stopped gabapentin - says it did not help his pain EMG was c/w radiculopathy He was diagnosed with Spondylolisthesis, lumbosacral region but not a candidate for surgery . [facility] Medical History Obstructive sleep apnea Numbness and tingling of both legs Hypersomnia Snoring Gait disorder MATEO on CPAP Arthritis Lower extremity edema Depression Seizure disorder GERD (gastroesophageal reflux disease) Chronic idiopathic constipation Surgical History History of intestinal surgery History of esophagogastroduodenoscopy (EGD) (~2017) Hx of colonoscopy (~2017) Family History Mother Heart attack Social History Alcohol intake: never Patient Tobacco Use Status: Never used Tobacco Physical Exam Vital Signs: BMI result Body Mass Index 39.3 Const General: cooperative, comfortable and no acute distress Nutritional Appearance: obese Orientation/consciousness: patient oriented x3 Limitations: physical limitations and ambulation with walker HEENT Head: Yes normal to inspection Eyes Pupils: Equal, round and reactive pupils present Neuro Other: Gait- with walker , high steppage gait slow General: patient oriented x3, tone normal and moves all extremities Cranial nerves: Yes Facial sensation intact/muscles of mastication intact, Yes Equal, round and reactive pupils present, Yes Bilaterally intact EOM present, Yes Nystagmus not present, Yes Normal facial strength present, Yes Midline tongue present and Yes Ability to bilaterally elevate shoulders present Cognition (Neuro): normal cognition Motor exam (neuro): Other motor observations present (weakness in LE) Coordination: [id number] test normal Assessment & Plan Assessment & Plan (1) Gait disorder: Comment: he had a detailed evaluation with Dr. Kapoor, rakesh Code(s): R26.9 - Unspecified abnormalities of gait and mobility Category: Medical (2) Seizure disorder: Code(s): G40.909 - Epilepsy, unspecified, not intractable, without status epilepticus Category: Medical (3) Obstructive sleep apnea: Comment: declines CPAP Code(s): G47.33 - Obstructive sleep apnea (adult) (pediatric) Category: Medical Plan Advised patient to continue to take phenobarb 64.8mg tid and dilantin 100mg tid. Increase exercise EMG NCS LE - results discussed Coding Level of Care Code Est Pt Level 4 (96495) Diagnoses Gait disorder R26.9 Seizure disorder G40.909 Obstructive sleep apnea G47.33
--- OUTSIDE RECORDS SUMMARY | 2025-01-20 10:43 | XMS_ITS | Clinical Summary ---
Author Organization [employer] Address [address] [facility] 7t [place] [address] Care Team Providers Care Floor Waxer Name Role Phone Giulia Armando MD Primary Care Provider [phone] Allergies No known active allergies Medications docusate sodium (Colace) 100 MG capsuleIndication s:Chronic idiopathic constipation TAKE 1 CAPSULE BY MOUTH 3 (THREE) TIMES A DAY 60 capsule 6 08/21/19 23 Active Bisacodyl EC 5 MG EC tabletIndications :Chronic idiopathic constipation TAKE 2 TABLETS BY MOUTH AT BEDTIME NEEDED FOR CONSTIPATION 60 tablet 2 09/26/19 23 Active Dilantin 100 MG capsule TAKE 1 CAPSULE BY MOUTH 3 (THREE) TIMES A DAY 90 capsule 11 10/11/19 24 Active esomeprazole (NexIUM) [address] capsuleIndication s:Gastroesophagea l reflux disease without esophagitis TAKE 1 CAPSULE BY MOUTH ONCE DAILY 90 capsule 3 12/10/19 24 Active PHENobarbital 64.8 MG tabletIndications :Depressive disorder TAKE 1 TABLET BY MOUTH 3 (THREE) TIMES A DAY 90 tablet 3 04/02/20 24 Active traMADol (Ultram) 50 MG tabletIndications :Chronic bilateral low back pain without sciatica Take 1 tablet (50 mg) by mouth in the morning. 28 tablet 08/07/20 24 Active folic acid (Folvite) 400 MCG tabletIndications :Persistent depressive disorder TAKE 1 TABLET BY MOUTH ONCE DAILY 30 tablet 5 10/06/19 25 Active simvastatin (Zocor) 10 MG tabletIndications :Hypertension, unspecified type TAKE 1 TABLET BY MOUTH ONCE DAILY 30 tablet 5 10/06/19 25 Active furosemide (Lasix) 20 MG tabletIndications :Hypertension, unspecified type TAKE 1 TABLET BY MOUTH two (2) times a day 60 tablet 5 10/06/19 25 Active cyanocobalamin (Vitamin B-12) 1000 MCG tabletIndications :B12 deficiency TAKE 1 TABLET BY MOUTH IN THE MORNING 30 tablet 5 10/06/19 25 Active ARIPiprazole (Abilify) 10 MG tabletIndications :Persistent depressive disorder TAKE 1 TABLET BY MOUTH IN THE MORNING 30 tablet 5 10/06/19 25 Active traZODone (Desyrel) 100 MG tabletIndications :Depression, unspecified depression type TAKE 2 TABLETS BY MOUTH AT BEDTIME 60 tablet 11/28/19 25 Active DULoxetine (Cymbalta) [address] capsuleIndication s:Depression, unspecified depression type TAKE 2 CAPSULES BY MOUTH IN THE MORNING 60 capsule 8 12/03/19 25 Active ergocalciferol (Vitamin D2) 1.25 MG (76674 UT) capsuleIndication s:Vitamin D deficiency TAKE 1 CAPSULE BY MOUTH every Saturday 4 capsule 8 12/03/19 25 Active Blood Pressure kit Check blood pressure daily 1 kit 01/09/20 25 Active acetaminophen (Tylenol Extra Strength) 500 MG tabletIndications :Other non-recurrent acute nonsuppurative otitis media of left ear Take 2 tablets (1,000 mg) by mouth every 12 (twelve) hours if needed for mild pain or moderate pain for up to 10 days. 60 tablet 01/16/20 25 025 Active amoxicillin-clavu lanate (Augmentin) 875-125 MG tabletIndications :Other non-recurrent acute nonsuppurative otitis media of left ear Take 1 tablet by mouth 2 times daily for 7 days. 14 tablet 01/16/20 25 025 Active carbamide peroxide (Debrox) 6.5 % otic solution Administer 5-10 drops into affected ear(s) 2 times daily for 4 days. 30 mL 01/09/20 25 025 amoxicillin-clavu lanate (Augmentin) 875-125 MG tabletIndications :Other non-recurrent acute nonsuppurative otitis media of left ear Take 1 tablet by mouth 2 times daily for 7 days. 14 tablet 01/16/20 25 025 Discontinu ed(Entered in error) acetaminophen (Tylenol Extra Strength) 500 MG tabletIndications :Other non-recurrent acute nonsuppurative otitis media of left ear Take 2 tablets (1,000 mg) by mouth every 12 (twelve) hours if needed for mild pain or moderate pain for up to 10 days. 60 tablet 01/16/20 25 025 Discontinu ed(Entered in error) Active Problems Problem Noted Date Diagnosed Date Edema of lower extremity 08/30/2021 Gastroesophageal reflux disease 04/29/2015 Seizure disorder 04/29/2015 Depressive disorder 04/29/2015 Encounters Date Type Department Care Team Description 01/15/2025 3:40 PM EDT Office Visit [facility] [address] [place] [address] Tatiana Tellez MD Other non-recurrent acute nonsuppurative otitis media of left ear (Primary Dx) 01/15/2025 Travel 01/15/2025 Telephone [facility] [address] [place] [address] Giulia Armando MD Nurse Triage 01/11/2025 Orders Only [facility] [address] [place] [address] Giulia Armando MD Edema of lower extremity (Primary Dx) 01/11/2025 Results Follow-Up [facility] [address] [place] [address] Giulia Armando MD Basic Metabolic Panel, Lipid Panel, Standard, Hepatic Function Panel, PSA, Total With Reflex to PSA, Free 01/08/2025 10:45 AM EDT Office Visit [facility] [address] [place] [address] Giulia Armando MD Urinary hesitancy (Primary Dx); Seizure disorder (CMS/HCC); Edema of lower extremity; Encounter for annual wellness visit; Encounter for screening for malignant neoplasm of colon; Impacted cerumen of left ear 01/08/2025 Travel 12/28/2024 Patient Outreach [facility] [address] [place] [address] [phone] Giulia Armando MD Pre-visit Planning (SDOH screening negative and Tobacco screening negative) 11/30/2024 Refill [facility] [address] [place], [place] [phone] Giulia Armando MD Depression, unspecified depression type; Vitamin D deficiency 11/27/2024 Refill [facility] [address] [place] [address] Giulia Armando MD Depression, unspecified depression type 10/23/2024 Population Health Risk Score [facility] [address] [place] [phone] Provider, Population Health Generic 10/21/2024 10:00 AM EDT Telemedicine [facility] [address] [place] [address] Lynda Woods, CRISTÓBAL watermelon inspector (current) use of opiate analgesic 10/21/2024 Telephone [facility] [address] [place] [address] Lynda Woods RN 10/21/2024 Travel from Last [...] Sign Reading Time Taken Comments Blood Pressure 159/89 01/15/2025 3:41 PM EDT Pulse 80 01/15/2025 3:41 PM EDT Temperature 36.5 ??C (97.7 ??F) 01/15/2025 3:41 PM ED T Respiratory Rate 14 01/15/2025 3:41 PM EDT Oxygen Saturation 97% 01/15/2025 3:41 PM EDT Inhaled Oxygen Concentration - - Weight 102 kg (224 lb) 01/15/2025 3:41 PM EDT Height 157.5 cm (5' 2 ) 01/15/2025 3:41 PM EDT Body Mass Index 40.97 01/15/2025 3:41 PM EDT Plan of Treatment Upcoming Encounters Date Type Department Care Team (Late st Contact Info) Description 02/01/2025 11:00 AM EDT Office Visit [facility] [address] [place] [address] Giulia Armando MD [address] [place] [address] Health Maintenance Due Date Last Done Comments [...] 06/09/2023 06/08/20 22, 12/19/2016, 11/21/2015 Influenza Vaccine (Season Ended) 2025 Dental X-Ray: Full Mouth 06/09/2025 06/08/2022, 11/10 SDOH Screening 12/28/2025 12/28/2024 COVID-19 Vaccine ( season) 2026 12/15/2021, 06/29/2021, 12/23/2020, Additional history exists Postponed from 04/12/2024 (Patient Refused) Depression Screening 01/08/2026 01/08/2025, 01/09/20 25 Disability Screening 01/08/2026 01/08/2025 Pneumococcal Vaccine: 50+ Years (1 of 1 - PCV) 01/08/2026 Postponed from 2011 (Patient Refused) Zoster Vaccines (1 of 2) 01/08/2026 Pos tponed from 2011 (Patient Refused) Tobacco Screening 01/15/2026 01/15/2025 DTaP/Tdap/Td Vaccines (2 - Td or Tdap) [...] PSA,Total (Free>4and<10) 0.97 0.00 - 4.00 ng/mL [facility] Comment:A Free PSA was not p [...] are between 4.0 and 10.0 ng/mL.PSA methodology: Buyt.Innity i ChemiluminescentMicroparticle Immunoassay (CMIA) 01/08/2025 11:2 7 AM EDT 01/08/2025 2:51 PM EDT Giulia Armando MD LAB BLOOD ORDERABLES Final Resul t Performing Organization Address [facility] Phone Number [facility] [address] [place] [phone] * Hepatic Function Panel (01/08/2025 11:27 AM EDT) Bilirubin, Total 0.2 0.0 - 1.0 mg/dL [facility] Bilirubin, Direct <0.2 0.0 - 0.5 mg/dL [facility] Aspartate Amino Transferase 33 5 - 37 U/L [facility] Alanine Aminotransferase 39 0 - 40 U/L [facility] Total Protein 7.7 6.5 - 8.0 g/dL [facility] Albumin Level 4.4 3.5 - 5.0 g/dL [facility] Alkaline Phosphatase 101 39 - 117 U/L [facility] Blood Venous blood specimen / Unknown 01/08/2025 11:27 AM EDT 01/08/2025 2:51 PM EDT Giulia Armando MD LAB BLOOD ORDERABLES Final Resul t Performing Organization Address [facility] Phone Number [facility] [address] [place] [phone] * (ABNORMAL) Lipid Panel, Standard (01/08/2025 11:27 AM EDT) Triglycerides 174(H) <150 mg/dL [facility] Comment:Desirable Triglyceri de: less than 150 mg/dLBorderline High Triglyceride 150-199 mg/dLHigh Triglyceride: 200-499 mg/dLVery High Triglyceride: greater than or equal to 5OO mg/dL Cholesterol 168 <200 mg/dL [facility] Comment:Desirable Cholestero l: less than 200 mg/dLBorderline High Cholesterol: 200-239 mg/dLHigh Cholesterol: greater than 239 mg/dL LDL Cholesterol Calculated 84 <100 mg/dL [facility] Comment:Desirable LDL: less than 100 mg/dLNear Optimal/Above Optimal LDL: 110- 129 mg/dLBorderline High LDL: 130-159 mg/dLHigh LDL: 160-189 mg/dLVery High LDL: greater than or equal to 190 mg/dL HDL Cholesterol 50 >40 mg/dL [facility] Comment:Desirable HDL: great er than 40 mg/dL Note: This HDL assay may give artificially low results in patients with liver disease. Blood Venous blood specimen / Unknown 01/08/2025 11:27 AM EDT 01/08/2025 2:51 PM EDT us Giulia Armando MD LAB BLOOD ORDERABLES Final Resul t [facility] [address] [place] [phone] * (ABNORMAL) Basic Metabolic Panel (01/08/2025 11:27 AM EDT) Sodium 143 135 - 145 mmol/L [facility] Potassium 3.0(L) 3.3 - 5.1 mmol/L [facility] Chloride 106 96 - 108 mmol/L [facility] Carbon Dioxide 26 22 - 29 mmol/L [facility] Anion Gap 14 12 - 20 [facility] Urea Nitrogen (BUN) 8(L) 9 - 16 mg/dL [facility] Creatinine, Serum 0.77 0.5 - 1.4 mg/dL [facility] Estimated Glomerular Filt Rate >60 [facility] Comment:Chronic Kidney Disea se: Estimated GFR < 60 mL/min/1.09i6Dtuopm Kidney Disease: Estimated GFR < 15 mL/min/1.73m2 Glucose 107 60 - 115 mg/dL [facility] Calcium 8.9 8.4 - 10.2 mg/dL [facility] Blood Venous blood specimen / Unknown 01/08/2025 11:27 AM EDT 01/08/2025 2:51 PM EDT Giulia Armando MD LAB BLOOD ORDERABLES Final Resul t [facility] [address] [place] [phone] [phone] * Hm Colonoscopy (12/27/2016) Colonoscopy Normal Normal us Historical Provider HEALTH MAINTENANCE Final Result from Last 3 Months or Most Recently Relevant to Health Maintenance Insurance [facility] C3 DENTAL - HSN FULL (MEDICAID) Care Teams Floor Waxer Relationship Specialty Start Date End Date Giulia Armando MD [address] [place] [phone] PCP - General Family Medicine 03/26/18 Nay Sanches Hospice NurseCivil Division Deputy Sheriff 10/11/23
== END 2025-01-20 10:07 | disposition home or self-care (01) ==
LOC: HO.HSMS 09:45
PROVIDERS: PCP Student in an Organized Health Care Education/Training Program; Visit Provider Psychiatry & Neurology Neurology
DX: R26.9 Unspecified abnormalities of gait and mobility (principal); G40.909 Epilepsy, unspecified, not intractable, without status epilepticus; G47.33 Obstructive sleep apnea (adult) (pediatric)
CPT/HCPCS: 99214

== ENCOUNTER → 2025-01-20 09:44 | Outpatient (BNVA) | payer MEDICAID, SELFPAY | PROVIDERS: PCP Student in an Organized Health Care Education/Training Program; Visit Provider Psychiatry & Neurology Neurology | DX: G47.33 Obstructive sleep apnea (adult) (pediatric) (principal); G40.909 Epilepsy, unspecified, not intractable, without status epilepticus; R26.9 Unspecified abnormalities of gait and mobility; M43.17 Spondylolisthesis, lumbosacral region | CPT/HCPCS: 99212 ==

== ENCOUNTER 2025-04-22 09:57 | Outpatient (AMB) | payer MEDICAID, SELFPAY ==
[2025-04-22 09:59] VITALS: BP 134/72; PULSE 73; O2SAT 97; BMI 40.8
--- NOTE | 2025-04-22 09:59 | MHC.OFFVIS ---
Vital Signs 04/22/25 09:59 Height 5 ft 3 in Weight 230 lb 2 oz BMI 40.8 BP 134/72 Blood Pressure Location Lt brachial Position Sitting Pulse 73 Pulse Source Pulse Oximeter Pulse Oximetry (%) 97 Oxygen Delivery Method Room Air Intake Visit Reasons: 3 mo follow up Intake Note: Patient presents follow up Gait/Seizure. Patient states about the same. Beauty Advisor Required: Yes Beauty Advisor Language: Edge [employer] Services: Beauty Advisor Present Beauty Advisor Name: Marty [email or web address] Information Interpreted: non-clinical & clinical Accompanied by: Other Relationship Allergies No Known Allergies (No Known Allergies*) Allergy (Verified 04/22/25 10:13) HPI Comments Details: 64 y/o male patient presents for follow up of seizure disorder and gait problem. 10/2022 HST c/w DREAD of 35.7 and OAI is 34.8 O2 de-saturation to 68%. 03/2023 Pulse oximetry overnight study there were 0 desaturations events >3min, and 45 desaturation events <3 min. Patient needs a Titration Study in lab to determine ideal pressures as he has not been using his cpap machine since 2022. No seizures since 2010. His last seizure was 13 years ago. He has h/o seizures since childhood, secondary generalized tonic clonic seizures. He is managed on phenobarbital 64.8 mg tid, Dilantin 100mg tid. He is compliant with medications, however says he is always fatigued.He could not tolerate the cpap and says he sleeps well without the mask, though he has frequent night time awakenings and bathroom trips per night and he he has RLS / PLMD/ so he moves his feet all night long and has an uncomfortable sensation of tingling, and neuropathy bilaterally.. He stopped gabapentin, bc he says it was ineffective. EMG was c/w radiculopathy. He has Spondylolisthesis, lumbosacral region but not a candidate for surgery. He has a TRANSFER AND PUMPHOUSE OPERATOR CHIEF come in for 2 hours daily and helps with all his ADLS, he uses a rolling walker to ambulate. He declines pt today. Patient Ed. re: MATEO is provided today re: cardiovascular risks of MATEO. [facility] Medical History Obstructive sleep apnea Numbness and tingling of both legs Hypersomnia Snoring Gait disorder MATEO on CPAP Arthritis Lower extremity edema Depression Seizure disorder GERD (gastroesophageal reflux disease) Chronic idiopathic constipation Surgical History History of intestinal surgery History of esophagogastroduodenoscopy (EGD) (~2017) Hx of colonoscopy (~2017) Family History Mother Heart attack Social History Alcohol intake: never Patient Tobacco Use Status: Never used Tobacco Physical Exam Vital Signs: Last Vital Signs Pulse 73 04/22/25 09:59 BP 134/72 04/22/25 09:59 Pulse Ox 97 04/22/25 09:59 Oxygen Delivery Method Room Air 04/22/25 09:59 BMI result Body Mass Index 40.8 Const General: cooperative, comfortable and no acute distress Nutritional Appearance: obese Orientation/consciousness: patient oriented x3 Limitations: physical limitations and ambulation with walker HEENT Head: Yes normal to inspection Eyes Pupils: Equal, round and reactive pupils present Neuro Other: Gait- with walker , high steppage gait slow. General: patient oriented x3, tone normal and moves all extremities Cranial nerves: Yes Facial sensation intact/muscles of mastication intact, Yes Equal, round and reactive pupils present, Yes Bilaterally intact EOM present, Yes Nystagmus not present, Yes Normal facial strength present, Yes Midline tongue present and Yes Ability to bilaterally elevate shoulders present Cognition (Neuro): normal cognition Gait exam (Neuro): Assisted gait required and Assistive device used (rolling walker) Motor exam (neuro): Other motor observations present (weakness in LE) Coordination: [id number] test normal Psych Appearance: well kempt Speech and movement: Other speech and movement exam findings present (Psych) (eritrean speaking / language barrier) Thought content: Normal thought content present Results Reviewed Results Reviewed: IMPRESSION: 1. This is an abnormal study. 2. There is electrodiagnostic evidence for chronic bilateral L5-S1 radiculopathy. 3. Absent bilateral sural sensory nerves still raise possibility of peripheral neuropathy. However, it is not in a stocking-glove distribution because right radial sensory nerve on right hand is within normal. HST 10/2022 DREAD is 35.7and oxygen desaturation to 68%. 03/2023 Pulse Oximetry overnight Assessment & Plan Assessment & Plan (1) Obstructive sleep apnea: Comment: declines CPAP Code(s): G47.33 - Obstructive sleep apnea (adult) (pediatric) Category: Medical (2) Gait disorder: Comment: he had a detailed evaluation with Dr. Kapoor, multifactorial Code(s): R26.9 - Unspecified abnormalities of gait and mobility Category: Medical (3) Seizure disorder: Code(s): G40.909 - Epilepsy, unspecified, not intractable, without status epilepticus Category: Medical (4) Excessive daytime sleepiness: Code(s): G47.19 - Other hypersomnia Category: Medical Plan Epilepsy disorder continue to take phenobarbital 64.8mg tid and dilantin 100mg tid. Increase exercise as tolerable. PT declines PT today. EMG NCS LE - results discussed foot drop lumbosacral radiculopathy Labs to r/o deficiencies MATEO Moderate to severe MATEO reviewed HST with pt. today and explained the comorbidities associated with MATEO. He says he will try using the cpap, however feels claustrophobic. We discussed acclimating to the mask during watching tv at night so that he slowly gets used to having a device on his face and his discomfort eases. Will send him for Titration and start him on cpap. F/U in 3 months. Orders: Orders RT PSG in-lab sleep titration 04/22/25 G47.33 - Obstructive sleep apnea (adult) (pediatric) Hemoglobin A1c Today G47.19 - Other hypersomnia Vitamin D 25-OH Total Today G47.19 - Other hypersomnia Vitamin B6 Today G47.19 - Other hypersomnia Vitamin B12 and Folate Today G47.19 - Other hypersomnia Vitamin B1 Today G47.19 - Other hypersomnia Complete Blood Count no Diff Today G47.19 - Other hypersomnia Comprehensive Met. Panel Today G47.19 - Other hypersomnia Ferritin Today G47.19 - Other hypersomnia Methylmalonic Acid Today G47.19 - Other hypersomnia, G47.9 - Sleep disorder, unspecified, R53.83 - Other fatigue Homocysteine Today G47.19 - Other hypersomnia, G47.9 - Sleep disorder, unspecified, R53.83 - Other fatigue TSH reflex Free T4 Today G47.19 - Other hypersomnia Patient Instructions: Sleep Hygiene provided: set a scheduled bedtime and wake time to help regulate the circadian rhythm and balance the release of pituitary hormones. Sleep in a dark room, temperatures below 68 degrees, and no devices n bed. Limit caffeinated products 6 hours prior to bed, and limit fluids 2-4 hours prior to bed. Gentle night yoga, diffusing essential oils, and playing soft music can be relaxing. Coding Level of Care Code Est Pt Level 4 (95968) Diagnoses Obstructive sleep apnea G47.33 Gait disorder R26.9 Seizure disorder G40.909 Excessive daytime sleepiness G47.19
--- OUTSIDE RECORDS SUMMARY | 2025-04-22 11:56 | XMS_ITS | Encounter Summary ---
Author Organization [employer] Address [address] [facility] 7t [place] [address] Care Team Providers Care Supervisor Rice Milling Name Role Phone Giulia Armando MD Primary Care Provider [phone] Reason for Visit * Reason Comments Med Refill Encounter Details Date Type Department Care Team (Late st Contact Info) Description 07/18/2022 Refill [facility] [address] [place] [address] Giulia Armando MD [address] [place] [address] Social History Tobacco Use Types Packs/Day Years [...] Care Team (Late st Contact Info) Description 05/14/2025 9:00 AM EDT Office Visit [facility] [address] [place] [address] Catracho Hanson DDS [address] [place] [address] documented as of this encounter Visit Diagnoses Not on filedocumented in this encounter Care Teams Supervisor Rice Milling Relationship Specialty Start Date End Date Giulia Armando MD [address] [place] [address] PCP - General Family Medicine 03/26/18 Nay Sanches Seaming Machine OperatorFiberglass Finisher 10/11/23 documented as of this encounter
--- OUTSIDE RECORDS SUMMARY | 2025-04-22 11:56 | XMS_ITS | Encounter Summary ---
Author Organization [employer] Address [address] [facility] 7t [place] [address] Care Team Providers Care Industrial Commercial Groundskeeper Name Role Phone Giulia Armando MD Primary Care Provider [phone] Reason for Visit * Reason Comments Med Refill Encounter Details Date Type Department Care Team ([facility] st Contact Info) Description 09/28/2024 Refill [facility] [address] [facility] [place] [address] Giulia Armando MD [address] [place], [place] [phone] Hypertension, unspecified type; Persistent depressive disorder Social [...] Description 05/14/2025 9:00 AM EDT Office Visit [facility] [address] [place] [address] Catracho Hanson DDS [address] [place] [address] documented as of this encounter Visit Diagnoses Diagnosis Hypertension, unspecified type Persistent depressive disorder documented in this encounter Additional Health Concerns Assessment Noted Time PHQ-9 Depression Total Score: 9 07/09/20 23 10:54 AM EST documented as of this encounter Care Teams Industrial Commercial Groundskeeper Relationship Specialty Start Date End Date Giulia Armando MD [address] [place] [address] PCP - General Family Medicine 03/26/18 Nay Sanches Oracle Fusion DeveloperDocumentation Improvement Specialist 10/11/23 documented as of this encounter
--- OUTSIDE RECORDS SUMMARY | 2025-04-22 11:56 | XMS_ITS | Encounter Summary ---
Author Organization [employer] Address [address] [facility] 7[address] [place] [address] Care Team Providers Care Media Production Operator Name Role Phone Giulia Armando MD Primary Care Provider [phone] Encounter Details Date Type Department Care Team (Late st Contact Info) Description 07/18/2022 Abstract [facility] AD[facility] [address] [place] [address] Dental, Provider, DDS Social History Tobacco Use [...] Description 05/14/2025 9:00 AM EDT Office Visit [facility] AD[facility] [address] [place] [address] Catracho Hanson, GARRETTS [address] [place] [address] documented as of this encounter Procedures Procedure [...] on filedocumented in this encounter Care Teams Media Production Operator Relationship Specialty Start Date End Date Giulia Armando MD [address] [place] [phone] PCP - General Family Medicine 03/26/18 Nay Sanches Family Health Nurse PractitionerModel And Mold Maker 10/11/23 documented as of this encounter
--- OUTSIDE RECORDS SUMMARY | 2025-04-22 11:56 | XMS_ITS | Encounter Summary ---
Author Organization [employer] Address [address] [facility] 7t [place] [address] Care Team Providers Care Aircraft Mechanic Structures Name Role Phone Giulia Armando MD Primary Care Provider [phone] Reason for Visit * Reason Comments Med Refill Encounter Details Date Type Department Care Team (Late st Contact Info) Description 08/20/2022 Refill [facility] [address] [place] [address] Giulia Armando MD [address] [place] [address] Social History Tobacco Use Types Packs/Day Years [...] Description 05/14/2025 9:00 AM EDT Office Visit [facility] ADULT DENTAL [address] [place] [address] Catracho Hanson DDS [address] [place] [address] documented as of this encounter Visit Diagnoses Not on filedocumented in this encounter Care Teams Aircraft Mechanic Structures Relationship Specialty Start Date End Date Giulia Armando MD [address] [place] [address] PCP - General Family Medicine 8/15/18 Nay Sanches Lead GeneratorNuclear Operations Specialist 10/11/23 documented as of this encounter
--- OUTSIDE RECORDS SUMMARY | 2025-04-22 11:56 | XMS_ITS | Encounter Summary ---
Author Organization [employer] Address 75 [facility] 7t [place] [address] Care Team Providers Care Board Hammer Operator Name Role Phone Giulia Armando MD Primary Care Provider [phone] Encounter Details Date Type Department Care Team (Late st Contact Info) Description 03/08/2023 Orders Only [facility] MED & PEDS [address] [place], [place] [phone] Giulia Armando MD [address] [place], [place] [phone] Social History Tobacco Use Types Packs/Day Years [...] Description 05/14/2025 9:00 AM EDT Office Visit [facility] ADULT DENTAL [address] [place] [address] Catracho Hanson DDS [address] [place], [place] [phone] documented as of this encounter Visit Diagnoses Not on filedocumented in this encounter Care Teams Board Hammer Operator Relationship Specialty Start Date End Date Giulia Armando MD [address] [place] [address] PCP - General Family Medicine 03/26/18 Nay Sanches Advisory Services AssociateBrilliandeer Looper 10/11/23 documented as of this encounter
--- OUTSIDE RECORDS SUMMARY | 2025-04-22 11:56 | XMS_ITS | Encounter Summary ---
Author Organization [employer] Address 75 [facility] 7t [place] [address] Care Team Providers Care Manufacturing Engineering Professor Name Role Phone Giulia Armando MD Primary Care Provider [phone] Encounter Details Date Type Department Care Team (Late st Contact Info) Description 09/25/2022 Orders Only [facility] MEDICINE [address] [place], [place] [phone] Nikki Barnhart LPN Social History Tobacco Use [...] Description 05/14/2025 9:00 AM EDT Office Visit [facility] CHC ADULT DENTAL [address] [place] [address] Catracho Hanson DDS [address] [place], [place] [phone] documented as of this encounter Visit Diagnoses Not on filedocumented in this encounter Care Teams Manufacturing Engineering Professor Relationship Specialty Start Date End Date Giulia Armando MD [address] [place] [address] PCP - General Family Medicine 03/26/18 Nay Sanches Abseiling InstructorPediatric Dietician 10/11/23 documented as of this encounter
--- OUTSIDE RECORDS SUMMARY | 2025-04-22 11:56 | XMS_ITS | Encounter Summary ---
Author Organization [employer] Address 75 [facility] 7t [place] [address] Care Team Providers Care Cardiac Technician Name Role Phone Giulia Armando MD Primary Care Provider Encounter Details Date Type Department Care Team (Latest Contact Info) Description 06/08/2022 Abstract [facility] CONVERSIONS Dental, Provider, DDS Social History [...] Description 05/14/2025 9:00 AM EDT Office Visit [facility] CHC ADULT DENTAL [address] [place] [address] Catracho Hanson DDS [address] [place] [address] documented as of this encounter Visit Diagnoses Not on filedocumented in this encounter Care Teams Cardiac Technician Relationship Specialty Start Date End Date Giulia Armando MD 230 [place] [address] PCP - General Family Medicine 03/26/18 Nay Sanches Pile Driver Operator HelperHome Theater Installer 10/11/23 documented as of this encounter
--- OUTSIDE RECORDS SUMMARY | 2025-04-22 11:56 | XMS_ITS | Encounter Summary ---
Author Organization [employer] Address 75 [facility] 7t [place] [address] Care Team Providers Care Correctional Medicine Physician Name Role Phone Giulia Armando MD Primary Care Provider [phone] Reason for Visit * Reason Comments Med Refill Encounter Details Date Type Department Care Team ([facility] st Contact Info) Description 09/27/2024 Refill [facility] MED & PEDS [address] [place] [address] Giulia Armando MD 505 [place], [place] [phone] Persistent depressive disorder; Hypertension, unspecified type; B12 [...] Description 05/14/2025 9:00 AM EDT Office Visit [facility] ADULT DENTAL [address] [place] [address] Catracho Hanson DDS [address] [place] [address] documented as of this encounter Visit Diagnoses Diagnosis Persistent depressive disorder Hypertension, unspecified type B12 deficiency documented in this encounter Additional Health Concerns Assessment Noted Time PHQ-9 Depression Total Score: 9 07/09/20 23 10:54 AM EST documented as of this encounter Care Teams Correctional Medicine Physician Relationship Specialty Start Date End Date Giulia Armando MD [address] [place] [address] PCP - General Family Medicine 03/26/18 Nay Sanches Ic Design ManagerEnrollment Manager 10/11/23 documented as of this encounter
--- OUTSIDE RECORDS SUMMARY | 2025-04-22 11:56 | XMS_ITS | Clinical Summary ---
Author Organization [employer] Address 75 [facility] 7t [place] [address] Care Team Providers Care Amf Mechanic Name Role Phone Giulia Armando MD Primary Care Provider Allergies No known active allergies Medications docusate sodium (Colace) 100 MG capsuleIndicati ons:Chronic idiopathic constipation TAKE 1 CAPSULE BY MOUTH 3 (THREE) TIMES A DAY 60 capsule 6 023 Active Bisacodyl EC 5 MG EC tabletIndicatio ns:Chronic idiopathic constipation TAKE 2 TABLETS BY MOUTH AT BEDTIME NEEDED FOR CONSTIPATION 60 tablet 2 023 Active Dilantin 100 MG capsule TAKE 1 CAPSULE BY MOUTH 3 (THREE) TIMES A DAY 90 capsule 11 024 Active esomeprazole (NexIUM) [address] capsuleIndicati ons:Gastroesoph ageal reflux disease without esophagitis TAKE 1 CAPSULE BY MOUTH ONCE DAILY 90 capsule 3 024 Active PHENobarbital 64.8 MG tabletIndicatio ns:Depressive disorder TAKE 1 TABLET BY MOUTH 3 (THREE) TIMES A DAY 90 tablet 3 024 Active traMADol (Ultram) 50 MG tabletIndicatio ns:Chronic bilateral low back pain without sciatica Take 1 tablet (50 mg) by mouth in the morning. 28 tablet 024 Active DULoxetine (Cymbalta) [address] capsuleIndicati ons:Depression, unspecified depression type TAKE 2 CAPSULES BY MOUTH IN THE MORNING 60 capsule 8 025 Active ergocalciferol (Vitamin D2) 1.25 MG (56960 UT) capsuleIndicati ons:Vitamin D deficiency TAKE 1 CAPSULE BY MOUTH every Saturday 4 capsule 8 025 Active Blood Pressure kit Check blood pressure daily 1 kit Active cetirizine (ZyrTEC) 10 MG tablet Take 1 tablet (10 mg) by mouth Once per day. 30 tablet 5 2024 Active simvastatin (Zocor) 10 MG tabletIndicatio ns:Hypertension , unspecified type TAKE 1 TABLET BY MOUTH ONCE DAILY 90 tablet 1 Active cyanocobalamin (Vitamin B-12) 1000 MCG tabletIndicatio ns:B12 deficiency TAKE 1 TABLET BY MOUTH IN THE MORNING 30 tablet 025 Active folic acid (Folvite) 400 MCG tabletIndicatio ns:Persistent depressive disorder TAKE 1 TABLET BY MOUTH ONCE DAILY 30 tablet Active ARIPiprazole (Abilify) 10 MG tabletIndicatio ns:Persistent depressive disorder TAKE 1 TABLET BY MOUTH EVERY MORNING 30 tablet Active furosemide (Lasix) 20 MG tabletIndicatio ns:Hypertension , unspecified type TAKE 1 TABLET BY MOUTH two (2) times a day 60 tablet Active traZODone (Desyrel) 100 MG tabletIndicatio ns:Depression, unspecified depression type TAKE 2 TABLETS BY MOUTH AT BEDTIME 60 tablet 025 Active folic acid (Folvite) 400 MCG tabletIndicatio ns:Persistent depressive disorder TAKE 1 TABLET BY MOUTH ONCE DAILY 30 tablet 2024 Discontinued simvastatin (Zocor) 10 MG tabletIndicatio ns:Hypertension , unspecified type TAKE 1 TABLET BY MOUTH ONCE DAILY 30 tablet 2024 Discontinued furosemide (Lasix) 20 MG tabletIndicatio ns:Hypertension , unspecified type TAKE 1 TABLET BY MOUTH two (2) times a day 60 tablet 2024 Discontinued cyanocobalamin (Vitamin B-12) 1000 MCG tabletIndicatio ns:B12 deficiency TAKE 1 TABLET BY MOUTH IN THE MORNING 30 tablet 5 025 2024 Discontinued ARIPiprazole (Abilify) 10 MG tabletIndicatio ns:Persistent depressive disorder TAKE 1 TABLET BY MOUTH IN THE MORNING 30 tablet 5 025 2024 Discontinued traZODone (Desyrel) 100 MG tabletIndicatio ns:Depression, unspecified depression type TAKE 2 TABLETS BY MOUTH AT BEDTIME 60 tablet 1 025 2024 Discontinued(R eorder (will not trigger notification to Pharmacy)) Active Problems Problem Noted Date Diagnosed Date Edema of lower extremity 08/30/2021 Gastroesophageal reflux disease 04/29/2015 Seizure disorder 04/29/2015 Depressive disorder 04/29/2015 Encounters Date Type Department Care Team Description 04/16/2025 10:00 AM EDT Office Visit [facility] ADULT DENTAL [address] [place] [address] Catracho Hanson, DDS 03/30/2025 9:30 AM EDT Office Visit [facility] ADULT DENTAL [address] [place] [address] Catracho Hanson, DDS 03/30/2025 Refill [facility] MEDICINE [address] [place], [place] [phone] Cory Araiza MD Depression, unspecified depression type 03/30/2025 Refill [facility] MED & PEDS [address] [place] [address] Giulia Armando MD B12 deficiency; Persistent depressive disorder; Hypertension, unspecified type; Depression, unspecified depression type 03/26/2025 Refill [facility] MED & PEDS [address] [place] [address] Giulia Armando MD Hypertension, unspecified type 02/01/2025 11:00 AM EDT Office Visit [facility] MED & PEDS [address] [place] [address] Giulia Armando MD Primary hypertension (Primary Dx); Impacted cerumen of left ear 02/01/2025 Travel 01/26/2025 Refill [facility] MEDICINE [address] [place], [place] [phone] Giulia Armando MD Depression, unspecified depression type from Last 3 Months Immunizations Immunization Administration [...] Sign Reading Time Taken Comments Blood Pressure 133/82 02/01/2025 10:56 AM EDT Pulse 72 02/01/2025 10:56 AM EDT Temperature 36.2 C (97.1 F) 02/01/2025 10:56 AM EDT Respiratory Rate 18 02/01/2025 10:56 AM EDT Oxygen Saturation 97% 01/15/2025 3:41 PM EDT Inhaled Oxygen Concentration - - Weight 102 kg (225 lb) 02/01/2025 10:56 AM EDT Height 157.5 cm (5' 2 ) 02/01/2025 10:56 AM EDT Body Mass Index 41.15 02/01/2025 10:56 AM EDT Plan of Treatment Upcoming Encounters Date Type Department Care Team (Late st Contact Info) Description 05/14/2025 9:00 AM EDT Office Visit [facility] ADULT DENTAL [address] [place] [address] Catracho Hanson, DDS [address] [place] [address] Health Maintenance Due Date Last Done Comments CT Colonography 1961 FIT DNA/Cologuard 1961 FIT 1961 FOBT 1961 HIV Screening 1961 Sigmoidoscopy 1961 Alcohol/Substance Use Screening 1973 Hepatitis C Screening 1979 RSV Patients and Patients Aged 60 years or older (1 - Risk 60-74 years 1-dose series) 2021 Colonoscopy 12/27/2021 12/27/2016 Colorectal Cancer Screening 12/27/2021 Dental Oral Exam 12/08/2022 06/08/2022, 05/2017, 11/21/2015 COVID-19 Vaccine ( season) 2025 12/15/2021, 06/29/2021, 12/23/2020, Additional history exists Influenza Vaccine (#1) 2025 Dental X-Ray: Full Mouth 06/09/2025 06/08/2022, 11/10 Dental Prophylaxis 10/01/2025 03/30/2025, 1 , 12/31/2016, Additional history exists SDOH Screening 12/28/2025 12/28/2024 Depression Screening 01/08/2026 01/08/2025, 01/09/20 25 Disability Screening 01/08/2026 01/08/2025 Pneumococcal Vaccine: 50+ Years (1 of 1 - PCV) 01/08/2026 Postponed from 2011 (Patient Refused) Zoster Vaccines (1 of 2) 01/08/2026 Pos tponed from 2011 (Patient Refused) Dental X-Ray: Bitewings 03/31/2026 03/30/20 25, 06/08/2022, 12/19/2016, Additional history exists Tobacco Screening 04/16/2026 04/16/2025 DTaP/Tdap/Td Vaccines (2 - Td or Tdap) [...] Procedure Name Priority Date/Time Associated Diagnosis Comments 12 RESIN-BASED COMPOSITE - 3 SURF, POSTERIOR Routine 04/16/2025 10:00 AM EDT CASE PRESENTATION, DETAILED AND EXTENSIVE TREATMENT PLANNING Routine 04/16/2025 10:00 AM EDT CASE PRESENTATION, DETAILED AND EXTENSIVE TREATMENT PLANNING Routine 03/30/2025 9:30 AM EDT INTRAORAL - PERIAPICAL EACH ADDITIONAL RADIOGRAPHIC IMAGE Routine 03/30/2025 9:30 AM EDT INTRAORAL - PERIAPICAL FIRST RADIOGRAPHIC IMAGE Routine 03/30/2025 9:30 AM EDT BITEWINGS - 4 RADIOGRAPHIC IMAGES Routine 03/30/2025 9:30 AM EDT PROPHYLAXIS - ADULT Routine 03/30/2025 9 :30 AM EDT ORAL HYGIENE INSTRUCTIONS Routine 03/30/2025 9:30 AM EDT COMPREHENSIVE PERIODONTAL EVALUATION - NEW OR ESTABLISHED PATIENT Routine 03/30/2025 9:30 AM EDT LIPID PANEL, STANDARD Routine 01/08/2025 11:27 AM EDT Seizure disorder (CMS/HCC) INTRAORAL - COMPLETE SERIES OF RADIOGRAPHIC IMAGES Routine 06/08/2022 12:00 AM EDT PERIODIC ORAL EVALUATION - ESTABLISHED PATIENT Routine 06/08/2022 12:00 AM EDT HM COLONOSCOPY Routine 12/27/2016 from Last 3 Months or Most Recently Relevant to Health Maintenance Results * (ABNORMAL) Lipid Panel, Standard (01/08/2025 11:27 AM EDT) Triglycerides 174(H) <150 mg/dL [facility] Comment:Desirable Triglyceri de: less than 150 mg/dLBorderline High Triglyceride 150-199 mg/dLHigh Triglyceride: 200-499 mg/dLVery High Triglyceride: greater than or equal to 5OO mg/dL Cholesterol 168 <200 mg/dL [facility] Comment:Desirable Cholestero l: less than 200 mg/dLBorderline High Cholesterol: 200-239 mg/dLHigh Cholesterol: greater than 239 mg/dL LDL Cholesterol Calculated 84 <100 mg/dL [facility] Comment:Desirable LDL: less than 100 mg/dLNear Optimal/Above Optimal LDL: 110- 129 mg/dLBorderline High LDL: 130-159 mg/dLHigh LDL: 160-189 mg/dLVery High LDL: greater than or equal to 190 mg/dL HDL Cholesterol 50 >40 mg/dL [facility] Comment:Desirable HDL: great er than 40 mg/dL Note: This HDL assay may give artificially low results in patients with liver disease. Blood Venous blood specimen / Unknown 01/08/2025 11:27 AM EDT 01/08/2025 2:51 PM EDT us Giulia Armando MD LAB BLOOD ORDERABLES Final Resul t [facility] [address] [place] [address] [phone] * Hm Colonoscopy (12/27/2016) [facility] Colonoscopy Normal Normal us Historical Provider MD HEALTH MAINTENANCE Final Result from Last 3 Months or Most Recently Relevant to Health Maintenance Insurance [facility] C3 DENTAL - HSN FULL (MEDICAID) DENTAL-[facility] MEDICAID STAND ADULT Care Teams Amf Mechanic Relationship Specialty Start Date End Date Giulia Armando MD [address] [place] [address] PCP - General Family Medicine 03/26/18 Nay Sanches Or RnChainstitch Felled Seam Operator 10/11/23
== END 2025-04-22 11:00 | disposition home or self-care (01) ==
LOC: HO.HSMS 09:58
PROVIDERS: PCP Student in an Organized Health Care Education/Training Program; Visit Provider Physician Assistant Medical
DX: G47.33 Obstructive sleep apnea (adult) (pediatric) (principal); R26.9 Unspecified abnormalities of gait and mobility; G40.909 Epilepsy, unspecified, not intractable, without status epilepticus; G47.19 Other hypersomnia
CPT/HCPCS: 99214

== ENCOUNTER → 2025-04-22 09:57 | Outpatient (BNVA) | payer MEDICAID, SELFPAY | PROVIDERS: PCP Student in an Organized Health Care Education/Training Program; Visit Provider Physician Assistant Medical | DX: G47.33 Obstructive sleep apnea (adult) (pediatric) (principal); R26.9 Unspecified abnormalities of gait and mobility; G40.909 Epilepsy, unspecified, not intractable, without status epilepticus; G47.19 Other hypersomnia | CPT/HCPCS: 99212 ==

== ENCOUNTER → 2025-07-01 11:23 | Outpatient (REF) | payer MEDICAID, SELFPAY ==
--- OUTSIDE RECORDS SUMMARY | 2025-07-01 17:38 | XMS_ITS | Encounter Summary ---
Author Organization [employer] Address 75 [facility] 7t [place] [address] Care Team Providers Care Plate Preparer Name Role Phone Giulia Armando MD Primary Care Provider [phone] Nazanin Ruiz CNP Primary Care Provider [phone] Encounter Details Date Type Department Care Team (Late st Contact Info) Description 07/18/2022 Abstract [facility] ADULT DENTAL [address] [place] [address] Dental, Provider, DDS Social History Tobacco Use Types Packs/Day Years Used Date Smoking Tobacco: Never Assessed Sex and Gender Information Value Date Recorded Sex Assigned at Male 06/11/2022 10:28 AM EDT Legal Sex Male 10:28 AM EDT Gender Identity Male 06/11/2022 10:28 AM EDT Sexual Orientation Straight 06/11/2022 10 :28 AM EDT documented as of this encounter Plan of Treatment Not on file documented as of this encounter Procedures Procedure [...] on filedocumented in this encounter Care Teams Plate Preparer Relationship Specialty Start Date End Date Giulia Armando MD [address] [place] [address] PCP - General Family Medicine 03/26/18 06/09/25 Nazanin Ruiz CNP [address] [place] [address] PCP - General Family Medicine 06/10/25 Nay Sanches Manager ResourceInspector Motor Vehicles 10/11/23 documented as of this encounter
--- OUTSIDE RECORDS SUMMARY | 2025-07-01 17:38 | XMS_ITS | Encounter Summary ---
Author Organization [employer] Address 75 [facility] 7t [place] [address] Care Team Providers Care Manager Search Name Role Phone Giulia Armando MD Primary Care Provider [phone] Nazanin Ruiz CNP Primary Care Provider [phone] Reason for Visit * Reason Comments Med Refill Encounter Details Date Type Department Care Team ([facility] st Contact Info) Description 07/18/2022 Refill [facility] MEDICINE [address] [place] [address] Giulia Armando MD [address] [place], [place] [phone] Social History Tobacco Use Types Packs/Day Years [...] on file documented as of this encounter Visit Diagnoses Not on filedocumented in this encounter Care Teams Manager Search Relationship Specialty Start Date End Date Giulia Armando MD [address] [place] [address] PCP - General Family Medicine 03/26/18 06/09/25 Nazanin Ruiz CNP [address] [place] [address] PCP - General Family Medicine 06/10/25 Nay Sanches Carton Making Machine OperatorDelivery Driver Assistant 10/11/23 documented as of this encounter
--- OUTSIDE RECORDS SUMMARY | 2025-07-01 17:38 | XMS_ITS | Encounter Summary ---
Author Organization [employer] Address 75 [facility] 7t [place] [address] Care Team Providers Care Bank Accountant Name Role Phone Giulia Armando MD Primary Care Provider Nazanin Ruiz CNP Primary Care Provider [phone] Reason for Visit * Reason Comments Med Refill Encounter Details Date Type Department Care Team ([facility] st Contact Info) Description 09/27/2024 Refill [facility] CHC MED & PEDS [address] [place], [place] [phone] Giulia Armando MD [address] [place], [place] [phone] Persistent depressive disorder; Hypertension, unspecified type; B12 [...] documented as of this encounter Care Teams Bank Accountant Relationship Specialty Start Date End Date Giulia Armando MD [address] [place] [address] PCP - General Family Medicine 03/26/18 06/09/25 Nazanin Ruiz CNP [address] [place] [address] PCP - General Family Medicine 06/10/25 Nay Sanches Change DirectorParaeducator 10/11/23 documented as of this encounter
--- OUTSIDE RECORDS SUMMARY | 2025-07-01 17:38 | XMS_ITS | Encounter Summary ---
Author Organization [employer] Address 75 [facility] 7t [place] [address] Care Team Providers Care Slot Router Name Role Phone Giulia Armando MD Primary Care Provider [phone] Nazanin Ruiz CNP Primary Care Provider [phone] Reason for Visit * Reason Comments Med Refill Encounter Details Date Type Department Care Team ([facility] st Contact Info) Description 08/20/2022 Refill [facility] CHC MED & PEDS [address] [place] [address] Giulia Armando MD [address] [place] [address] Social History Tobacco Use Types Packs/Day Years [...] on filedocumented in this encounter Care Teams Slot Router Relationship Specialty Start Date End Date Giulia Armando MD [address] [place] [address] PCP - General Family Medicine 03/26/18 06/09/25 Nazanin Ruiz CNP [address] [place] [address] PCP - General Family Medicine 06/10/25 Nay Sanches Ladle WatcherCopying Machine Repairer 10/11/23 documented as of this encounter
--- OUTSIDE RECORDS SUMMARY | 2025-07-01 17:38 | XMS_ITS | Encounter Summary ---
Author Organization [employer] Address 75 [facility] 7t [place] [address] Care Team Providers Care Currency Counter Name Role Phone Giulia Armando MD Primary Care Provider [phone] Nazanin Ruiz CNP Primary Care Provider [phone] Encounter Details Date Type Department Care Team ([facility] st Contact Info) Description 03/08/2023 Orders Only [facility] CHC MED & PEDS [address] [place], [place] [phone] Giulia Armando MD [address] [place], [place] [phone] Social History Tobacco Use Types Packs/Day Years [...] on filedocumented in this encounter Care Teams Currency Counter Relationship Specialty Start Date End Date Giulia Armando MD [address] [place] [address] PCP - General Family Medicine 03/26/18 06/09/25 Nazanin Ruiz CNP [address] [place], [place] [phone] PCP - General Family Medicine 06/10/25 Nay Sanches Director MicrobiologyPastoral Ministries Professor 10/11/23 documented as of this encounter
--- OUTSIDE RECORDS SUMMARY | 2025-07-01 17:38 | XMS_ITS | Clinical Summary ---
Author Organization [employer] Address [address] [facility] [address] [place] [address] Care Team Providers Care Reclamation Worker Name Role Phone Nazanin Ruiz AUTOMATION TEST DEVELOPER Primary Care Provider [phone] Allergies No known active allergies Medications docusate [...] in the morning. 28 tablet 4 Active DULoxetine (Cymbalta) [address] capsuleIndicatio ns:Depression, unspecified depression type TAKE 2 CAPSULES BY MOUTH IN THE MORNING 60 capsule 8 5 Active ergocalciferol (Vitamin D2) 1.25 MG (91147 UT) capsuleIndicatio ns:Vitamin D deficiency TAKE 1 CAPSULE BY MOUTH every Saturday 4 capsule 8 5 Active Blood Pressure kit Check blood pressure daily 1 kit 5 Active cetirizine (ZyrTEC) 10 MG tablet Take 1 tablet (10 mg) by mouth Once per day. 30 tablet 5 5 025 Active simvastatin (Zocor) 10 MG tabletIndication s:Hypertension, unspecified type TAKE 1 TABLET BY MOUTH ONCE DAILY 90 tablet 1 5 Active cyanocobalamin (Vitamin B-12) 1000 MCG tabletIndication s:B12 deficiency TAKE 1 TABLET BY MOUTH IN THE MORNING 30 tablet 5 5 Active folic acid (Folvite) 400 MCG tabletIndication s:Persistent depressive disorder TAKE 1 TABLET BY MOUTH ONCE DAILY 30 tablet 5 5 Active ARIPiprazole (Abilify) 10 MG tabletIndication s:Persistent depressive disorder TAKE 1 TABLET BY MOUTH EVERY MORNING 30 tablet 5 5 Active furosemide (Lasix) 20 MG tabletIndication s:Hypertension, unspecified type TAKE 1 TABLET BY MOUTH two (2) times a day 60 tablet 5 5 Active traZODone (Desyrel) 100 MG tabletIndication s:Depression, unspecified depression type TAKE 2 TABLETS BY MOUTH AT BEDTIME 60 tablet 5 5 Active Active Problems Problem Noted Date Diagnosed Date Edema of lower extremity 08/30/2021 Gastroesophageal reflux disease 04/29/2015 Seizure disorder ([facility]) 04/29/2015 Depressive disorder 04/29/2015 Encounters Date Type Department Care Team Description 06/11/2025 9:00 AM EDT Office Visit [facility] ADULT DENTAL [address] [place] [address] Jorden Downs 06/08/2025 9:30 AM EDT Office Visit [facility] ADULT D[facility]AL [address] [place] [address] Catracho Hanson DDS 05/14/2025 9:00 AM EDT Office Visit [facility] ADULT D[facility] [address] [place] [address] Catracho Hanson DDS 04/16/2025 10:00 AM EDT Office Visit [facility] ADULT D[facility] [address] [place] [address] Catracho Hansno DDS from Last 3 Months Immunizations Immunization Administration Dates Next Due Brittanya Covid-19 Vaccine 12+ 06/29/2021,12/24/19 21,11/25/2020 Tdap 06/10/2017 [...] your housing situation today? I have michelle aleyda 12/28/[address] you li [...] Sign Reading Time Taken Comments Blood Pressure 128/88 06/11/2025 9:13 AM EDT Pulse 72 02/01/2025 10:56 AM [...] 02/01/2025 10:56 AM EDT Plan of Treatment Health Maintenance Due Date Last Done Comments CT Colonography 1961 FIT DNA/Cologuard 1961 FIT 1961 FOBT 1961 HIV Screening 1961 Sigmoidoscopy 1961 Alcohol/Substance Use Screening 1973 Hepatitis C Screening 1979 RSV Patients and Patients Aged 60 years or older (1 - Risk 50-74 years 1-dose series) 2011 Dental Oral Exam 12/08/2022 06/08/2022, 05/2017, 11/21/2015 COVID-19 Vaccine ( season) 2025 12/15/2021, 06/29/2021, 12/23/2020, Additional history exists Influenza Vaccine (#1) 2025 Dental X-Ray: Full Mouth 06/09/2025 022, 06/08/2022, 11/21/2015 Dental Prophylaxis 10/01/2025 03/30/2025, 1 , 12/31/2016, [...] 06/08/2022, 12/19/2016, Additional history exists Tobacco Screening 06/11/2026 06/11/2025 DTaP/Tdap/Td Vaccines (2 - Td or Tdap) 06/10/2027 06/10/2017 Colonoscopy 12/02/2028 12/03/2023, 12/27/2016 Colorectal Cancer Screening 12/02/2028 Lipid Panel 01/08/2030 01/08/2025, 04/12, 01/08/2023, Additional [...] Procedure Name Priority Date/Time Associated Diagnosis Comments CASE PRESENTATION, DETAILED AND EXTENSIVE TREATMENT PLANNING Routine 06/11/2025 9:00 AM EDT LR PERIODONTAL SCALING AND ROOT PLANING - 4 OR MORE TEETH PER QUADRANT Routine 06/11/2025 9:00 AM EDT UR PERIODONTAL SCALING AND ROOT PLANING - 4 OR MORE TEETH PER QUADRANT Routine 06/11/2025 9:00 AM EDT CASE PRESENTATION, DETAILED AND EXTENSIVE TREATMENT PLANNING Routine 06/08/2025 9:30 AM EDT 5 DO RESIN-BASED COMPOSITE - 2 SURF, POSTERIOR Routine 06/08/2025 9:30 AM EDT CASE PRESENTATION, DETAILED AND EXTENSIVE TREATMENT PLANNING Routine 05/14/2025 9:00 AM EDT 22 F RESIN-BASED COMPOSITE - 1 SURF, ANTERIOR Routine 05/14/2025 9:00 AM EDT 12 RESIN-BASED COMPOSITE - 3 SURF, POSTERIOR Routine 04/16/2025 10:00 AM EDT CASE PRESENTATION, DETAILED AND EXTENSIVE TREATMENT PLANNING Routine 04/16/2025 10:00 AM EDT PROPHYLAXIS - ADULT Routine 03/30/2025 9 :30 AM EDT BITEWINGS - 4 RADIOGRAPHIC IMAGES Routine 03/30/2025 9:30 AM EDT LIPID PANEL, [...] 11:27 AM EDT) Triglycerides 174(H) <150 mg/dL [facility] Comment:Desirable Triglyceri de: less than 150 mg/dLBorderline High Triglyceride 150-199 mg/dLHigh Triglyceride: 200-499 mg/dLVery High Triglyceride: greater than or equal to 5OO mg/dL Cholesterol 168 <200 mg/dL [facility] Comment:Desirable Cholestero l: less than 200 mg/dLBorderline High Cholesterol: 200-239 mg/dLHigh Cholesterol: greater than 239 mg/dL LDL Cholesterol Calculated 84 <100 mg/dL [facility] Comment:Desirable LDL: less than 100 mg/dLNear Optimal/Above Optimal LDL: 110- 129 mg/dLBorderline High LDL: 130-159 mg/dLHigh LDL: 160-189 mg/dLVery High LDL: greater than or equal to 190 mg/dL HDL Cholesterol 50 >40 mg/dL [facility] Comment:Desirable HDL: great er than 40 mg/dL Note: This HDL assay may give artificially low results in patients with liver disease. Blood Venous blood specimen / Unknown 01/08/2025 11:27 AM EDT 01/08/2025 2:51 PM EDT us Giulia Armando MD LAB BLOOD ORDERABLES Final Resul t [facility] [address] [place] [address] [phone] * Hm Colonoscopy (12/27/2016) Colonoscopy Normal Normal us Historical Provider HEALTH MAINTENANCE Final Result from Last 3 Months or Most Recently Relevant to Health Maintenance Insurance [facility] C3 DENTAL - N FULL (MEDICAID) DENTAL-[facility] MEDICAID STAND ADULT Care Teams Reclamation Worker Relationship Specialty Start Date End Date Nazanin Ruiz CNP [address] [place] [address] [place] [address] PCP - General Family Medicine 06/10/25 Nay Sanches Lead Javascript DeveloperBoot Turner 10/11/23
--- OUTSIDE RECORDS SUMMARY | 2025-07-01 17:38 | XMS_ITS | Encounter Summary ---
Author Organization [employer] Address [address] [facility] [address] [place] [address] Care Team Providers Care Ultrasound Technician Name Role Phone Giulia Armando MD Primary Care Provider [phone] aNzanin Ruiz CNP Primary Care Provider [phone] Encounter Details Date Type Department Care Team (Late st Contact Info) Description 09/25/2022 Orders Only [facility] MEDICINE [address], [place] [phone] Nikki Barnhart LPN Social History Tobacco Use [...] on filedocumented in this encounter Care Teams Ultrasound Technician Relationship Specialty Start Date End Date Giulia Armando MD [address] [place], [place] [phone] PCP - General Family Medicine 03/26/18 06/09/25 Nazanin Ruiz CNP [address] [facility] [place] [address] PCP - General Family Medicine 06/10/25 Nay Sanches Foot SpecialistBore Miner Operator 10/11/23 documented as of this encounter
--- OUTSIDE RECORDS SUMMARY | 2025-07-01 17:38 | XMS_ITS | Encounter Summary ---
Author Organization [employer] Address [address] [facility] [address] [place] [address] Care Team Providers Care Store Sales Leader Name Role Phone Giulia Armando MD Primary Care Provider [phone] Nazanin Ruiz CNP Primary Care Provider [phone] Reason for Visit * Reason Comments Med Refill Encounter Details Date Type Department Care Team ([facility] st Contact Info) Description 09/28/2024 Refill [facility] [address] [place], [place] [phone] Giulia Armando MD [address] [place], [place] [phone] Hypertension, unspecified type; Persistent depressive disorder Social [...] documented as of this encounter Care Teams Store Sales Leader Relationship Specialty Start Date End Date Giulia Armando MD [address] [place] [address] PCP - General Family Medicine 03/26/18 06/09/25 Nazanin Ruiz CNP [address] [place] [address] PCP - General Family Medicine 06/10/25 Nay Sanches Field AssessorStunner 10/11/23 documented as of this encounter
--- OUTSIDE RECORDS SUMMARY | 2025-07-01 17:38 | XMS_ITS | Encounter Summary ---
Author Organization [employer] Address [address] [facility] [address] [place] [address] Care Team Providers Care Demurrage Clerk Name Role Phone Giulia Armando MD Primary Care Provider [phone] Nazanin Ruiz CNP Primary Care Provider [phone] Encounter Details Date Type Department Care Team (Latest Contact Info) Description 06/08/2022 Abstract [facility]VERSION[facility] Dental, Provider, DDS Social History Tobacco [...] on filedocumented in this encounter Care Teams Demurrage Clerk Relationship Specialty Start Date End Date Giulia Armando MD [address] [place] [address] PCP - General Family Medicine 03/26/18 06/09/25 Nazanin Ruiz CNP [address] [facility] [place] [address] PCP - General Family Medicine 06/10/25 Nay Sanches Drum WorkerEnergy Scheduler 10/11/23 documented as of this encounter
== END ==
LOC: HO.SL 11:23
PROVIDERS: PCP Student in an Organized Health Care Education/Training Program; Visit Provider Physician Assistant Medical
DX: G47.33 Obstructive sleep apnea (adult) (pediatric) (principal); G47.19 Other hypersomnia
CPT/HCPCS: 95810